=== PATIENT | female | born 1950 | race Asian ===

== ENCOUNTER 2020-01-21 18:26 | Emergency (ER) | payer MEDICARE, SELFPAY ==
[2020-01-21 18:40] VITALS: BP 194/103; PULSE 103; RESP 20; TEMP 37.6; O2SAT 98
[2020-01-21 18:57] VITALS: BP 150/82
--- NOTE | 2020-01-21 19:02 | ED.GENADULT ---
HPI - General Adult General Chief complaint: Unspecified Stated complaint: blood pressure Time Seen by Provider: 01/21/20 18:44 Source: patient and RN notes reviewed Mode of arrival: ambulatory Limitations: no limitations History of Present Illness HPI narrative: Patient presents today complaining of elevated blood pressure. She takes BID lisinopril and HS metoprolol. She has not checked her blood pressure for months, but did check it yesterday at the pharmacy and it was elevated. Through the day today, she continued to check it many times and was even more elevated. 2 hrs prior to arrival, patient took a dose of lisinopril. She has not yet taken her nighttime metoprolol. She denies headache, chest pain, nausea or vomiting, dizziness or vision changes, numbness or tingling in the extremities. She also took 0.5mg Xanax prior to arrival because she could feel herself becoming anxious due to the elevated readings. Machine BP upon arrival was 194/103 with HR of 103. 20 mins later, manual BP was 150/82. MD complaint: Elevated blood pressure Related Data Home Medications Medication Instructions Recorded Confirmed alprazolam 1 mg BID 01/21/20 01/21/20 anastrozole 1 mg DAILY 01/21/20 01/21/20 lisinopril 20 mg DAILY 01/21/20 01/21/20 metoprolol tartrate 50 mg HS 01/21/20 01/21/20 montelukast 10 mg DAILY 01/21/20 01/21/20 rosuvastatin 20 mg DAILY 01/21/20 01/21/20 vitamin E 1,000 unit DAILY 01/21/20 01/21/20 Allergies Allergy/AdvReac Type Severity Reaction Status Date / Time meperidine Allergy Mild Verified 10/01/15 10:27 niacin Allergy Mild Verified 10/01/15 10:27 Review of Systems Review of Systems: Narrative: CONSTITUTIONAL: Denies body aches, fever, chills, or sweats. EYES: Denies visual changes, redness, or discharge. ENT: Denies rhinorrhea, congestion, sore throat, or otalgia. CARDIOVASCULAR: Denies chest pain, palpitations, or edema. RESPIRATORY: Denies cough or dyspnea. GASTROINTESTINAL: Denies abdominal pain, nausea, vomiting, or diarrhea. GENITOURINARY: Denies dysuria or hematuria. SKIN: Denies rash, itching, or wounds. MUSCULOSKELETAL: Denies back pain, joint pain, or myalgia. NEUROLOGIC: Denies headache, numbness, tingling, or weakness. PSYCH: Denies depression or anxiety. [facility] Past Medical History Medical History (Updated 01/21/20 @ 19:10 by Aliza Saeed, [employer], BC) Anxiety Hyperlipidemia Hypertension Social History Social History Gender identity (if verbalized by the patient): Female Comments At time of signature, I have reviewed and agree with nursing past medical, surgical, social and family history unless otherwise noted. Please see nursing chart for further information. There is no relevant family history pertinent to the presenting complaint Exam Narrative: Exam Narrative: GENERAL: Well-appearing, well-nourished, and in no acute distress. HEAD: Normocephalic, atraumatic. EYES: EOMI. No redness or drainage. Conjunctivae normal. ENT: Mucous membranes pink and moist. NECK: Normal AROM. CHEST: No respiratory distress. Clear to auscultation. HEART: Regular rate and rhythm. No murmur appreciated. Normal peripheral pulses. EXTREMITIES: Normal range of motion. No edema. SKIN: Warm, dry, no rash. Capillary refill normal. Normal skin turgor. NEURO: No focal deficits. Alert and oriented x3. Gait steady. PSYCH: Normal affect. No signs of depression or anxiety. Course Vital Signs Vital signs: Vital Signs Temperature 99.7 F H 01/21/20 18:40 Pulse Rate 103 H 01/21/20 18:40 Respiratory Rate 01/21/20 18:40 Blood Pressure 194/103 H 01/21/20 18:40 Pulse Oximetry 98 01/21/20 18:40 Temperature 99.7 F H 01/21/20 18:40 Pulse Rate 103 H 01/21/20 18:40 Respiratory Rate 01/21/20 18:40 Blood Pressure 150/82 H 01/21/20 18:57 Pulse Oximetry 98 01/21/20 18:40 Reviewed. Pt has been instructed to follow up with her PCP regarding her elevated blood press
== END 2020-01-21 19:06 | disposition home or self-care (01) ==
PROVIDERS: Emergency Provider Nurse Practitioner; PCP Internal Medicine
DX: I10 Essential (primary) hypertension (principal); F41.9 Anxiety disorder, unspecified; E78.5 Hyperlipidemia, unspecified
CPT/HCPCS: 99211; G0463

== ENCOUNTER 2021-09-26 15:55 | Emergency (ER) | payer MEDICARE, SELFPAY ==
--- NOTE | ~2021-09-26 | XR_ITS ---
XR foot LT min 3V DATE: 09/26/2021 16:14 INDICATION: Dropped heavy ball on foot. Pain particularly at second and third toes TECHNIQUE: 4 views COMPARISON: None FINDINGS: Plantar and posterior calcaneal enthesopathy. There is mild osteoarthritis at the first metatarsophalangeal joint. Os tibiale externum, normal variant. No fracture or dislocation, periosteal reaction or bone destruction or erosive change. IMPRESSION: No fracture or dislocation Plantar and posterior calcaneal enthesopathy Reviewed, dictated and finalized at location B.
--- NOTE | 2021-09-26 15:57 | ED.LOWEXIN ---
HPI - Extremity Injury (Lower) General Chief Complaint: Extremity Injury, Lower Stated Complaint: Lt Foot Pain Time Seen by Provider: 09/26/21 15:58 Source: patient, RN notes reviewed and old records reviewed Mode of arrival: ambulatory Limitations: no limitations History of Present Illness HPI Narrative: 71-year-old female presents to the [facility] with complaints of left foot pain after dropping a a bowl on her foot approximately 10 or 11 this morning. Bruising and swelling noted. Positive pedal pulse. Capillary refill distal to injury under 2 seconds. No nailbed involvement Related Data Home Medications Medication Instructions Recorded Confirmed lisinopril 20 mg DAILY 01/21/20 09/26/21 metoprolol tartrate 50 mg HS 01/21/20 09/26/21 montelukast 10 mg DAILY 01/21/20 09/26/21 rosuvastatin 20 mg DAILY 01/21/20 09/26/21 ergocalciferol (vitamin D2) 1,250 mcg PO WEEKLY 09/26/21 09/26/21 sertraline 50 mg PO DAILY 09/26/21 09/26/21 Allergies Allergy/AdvReac Type Severity Reaction Status Date / Time meperidine Allergy Mild Hives Verified 09/26/21 15:58 niacin Allergy Mild Hives Verified 09/26/21 15:58 Review of Systems Review of Systems: All systems reviewed & are unremarkable except as noted in HPI and below Constitutional: Constitutional: Reports no additional constitutional complaints Eyes: Eyes: Reports no additional eye complaints ENT: Reports system reviewed and no additional complaints, except as documented Cardiovascular: Cardiovascular: Reports no additional cardiovascular complaints Respiratory: Respiratory: Reports no additional respiratory complaints Gastrointestinal: Gastrointestinal: Reports no additional gastrointestinal complaints Musculoskeletal: Musculoskeletal: Reports as per HPI Comments: Bruising noted to left distal foot toes 2 and 3 Integumentary/Breasts: Skin/Breast: Reports system reviewed and no additional complaints, except as docu Neurologic: Reports system reviewed and no additional complaints, except as documented Psychiatric: Psychiatric: Reports no additional psychiatric complaints Allergic/Immunologic: Allergic/Immunologic: Reports no additional allergic/immunologic complaints PMFSH Past Medical History Medical History Anxiety Hyperlipidemia Hypertension Social History Social History Gender identity (if verbalized by the patient): Female Comments At the time of my signature, I reviewed and agree with the nursing past medical, surgical, social, and family history. There is no relevant family history pertinent to the patient complaint. Exam Const: General: healthy appearing, no acute distress and alert Nutritional Appearance: well nourished Orientation/consciousness: patient oriented x3 Limitations: no limitations HENMT: Head: normal to inspection Eyes: Pupils: Equal, round and reactive pupils present Neck: Neck: normal visual inspection, no lymphadenopathy and no meningeal signs Chest: Chest palpation & inspection: normal inspection of the chest Resp: Effort & Inspection: normal respiratory effort Auscultation: clear to auscultation bilaterally Cardio: Rate: regular rate Rhythm: regular rhythm : General: Yes no CVA tenderness Back/Spine/Pelvis: Back: no CVA tenderness Skin: General skin exam: normal color Rashes: no rashes Neuro: General: patient oriented x3, moves all extremities, no meningeal signs and no focal motor deficits Cranial nerves: Yes Equal, round and reactive pupils present Speech: normal speech Gait exam (Neuro): Normal gait present Extrem: General: full ROM, capillary refill normal and normal exam except as noted Left lower extremity: foot Details: tenderness (Dorsal second and third toe) and ecchymosis (Dorsal second and third toe) Psych: Appearance: grossly normal and well kempt Mental Status: mental status grossly no
[2021-09-26 16:05] VITALS: BP 154/75; PULSE 84; RESP 18; TEMP 37; O2SAT 100
== END 2021-09-26 16:36 | disposition home or self-care (01) ==
PROVIDERS: Emergency Provider Nurse Practitioner; PCP Internal Medicine
DX: S90.32XA Contusion of left foot, initial encounter (principal); S90.122A Contusion of left lesser toe(s) without damage to nail, initial encounter; W20.8XXA Other cause of strike by thrown, projected or falling object, initial encounter; E78.5 Hyperlipidemia, unspecified; I10 Essential (primary) hypertension; F41.9 Anxiety disorder, unspecified
CPT/HCPCS: 73630; 99213; G0463

== ENCOUNTER 2021-12-03 07:12 | Outpatient (CLI) | payer MEDICARE, SELFPAY ==
--- NOTE | 2021-12-24 21:28 | WPDSLEEPSTUD ---
Sleep Study Date of Study: 12/03/21 Ordering Provider: PRIMITIVO Simpson Interpreting Physician: Nenita Browne MD Sleep Study Type: Split Polysomnogram Height: 1.52 m Weight: 66.224 kg Body Mass Index: 28.5 Neck Circumference (inches): 16 [place]: 4 Reason for Sleep Study Poor quality sleep, loud snoring Sleep History Ana Lopez is a 71 year old woman with complaints of poor quality sleep. She says that her tells her that she snores. She rarely awakens from sleep feeling short of breath or awaken at night with heartburn, belching or coughing. She occasionally snores. She occasionally has trouble sleeping with a cold. She rarely wakes up gasping for breath at night. She rarely has breathing problems at night observed by others. She feels warm at night but does not sweat at night. She occasionally notices her heart pounding or beating irregularly at night. She does not fall asleep during the day, does not fall asleep involuntarily or while driving. She does not have loss of muscle tone with strong emotion. She does not have daytime difficulties due to excessive sleepiness. She does not feel paralyzed on waking or falling asleep. She rarely has vivid dreamlike scenes upon awakening or falling asleep. She rarely feels afraid to go to sleep. She occasionally has nightmares. She rarely remembers her dreams. She occasionally has racing thoughts. She occasionally feels sad or depressed. She occasionally has anxiety. She does not notice parts of her body jerking and she does not kick at night. She does not have crawling or aching feelings in her legs although she does have leg cramping at night. She rarely has morning jaw pain. She does not grind her teeth during sleep. She rarely is bothered by pain during the day and rarely awakened by pain at night. She rarely wakes up feeling stiff in the morning with sore or achy muscles. She occasionally wakes up with pain in the neck and spine. She has occasional headaches and palpitations. She sometimes has memory problems. She she has episodes of insomnia and feeling panicked. Normal bedtime is 12 midnight, taking up to 30 minutes to fall asleep, waking twice at night to use the bathroom. She does not stay awake for very long. She estimates getting 6 hours of sleep at night. She denies taking naps. She feels better in the morning compared to other times of day she occasionally awakens feeling refreshed. Habits: Never smoked tobacco. Caffeine: ice tea. No alcohol or recreational drugs. [facility] Past Medical History Medical History Anxiety Breast cancer Hyperlipidemia Hypertension Family History Family History Sibling Colon cancer Other Breast cancer Diabetes mellitus Hypertension Social History Social History Social History: never smoker Smoking status: Never smoker Alcohol intake: never Substance use: never Gender identity (if verbalized by the patient): Female Medications Home Medications Medication Instructions Recorded Confirmed Type lisinopril 20 mg tablet 20 mg DAILY 01/21/20 11/22/21 History montelukast 10 mg tablet 10 mg DAILY 01/21/20 11/22/21 History ergocalciferol (vitamin D2) 1,250 1,250 mcg PO WEEKLY 09/26/21 11/22/21 History mcg (50,000 unit) capsule aspirin 81 mg tablet,delayed 81 mg PO DAILY 10/09/21 11/22/21 History release (Adult Low Dose Aspirin) calcium citrate 315 mg 1 tablet PO DAILY 10/09/21 11/22/21 History calcium-vitamin D3 6.25 mcg (250 unit) tablet (Citracal + Vitamin D Maximum) furosemide 20 mg tablet 10 mg PO DAILY 10/09/21 11/22/21 History loratadine 10 mg tablet 10 mg PO DAILY 10/09/21 11/22/21 History multivit with 1 tablet PO DAILY 10/09/21 11/22/21 History samfuzud-ckdl-TM-lutein 8 mg iron-400 mcg-300 mc
[2021-12-24 22:00] VITALS: BMI 28.5
== END 2021-12-04 07:06 | disposition home or self-care (01) ==
LOC: ANHCSM 07:12
PROVIDERS: PCP Physician Assistant; Visit Provider Physician Assistant
DX: G47.33 Obstructive sleep apnea (adult) (pediatric) (principal)
CPT/HCPCS: 95811

== ENCOUNTER 2022-03-08 22:08 | Emergency (ER) | payer MEDICARE, SELFPAY ==
--- NOTE | ~2022-03-08 | XR_ITS ---
EXAMINATION: XR chest 2V DATE: 03/09/2022 00:49 INDICATION: Palpitations TECHNIQUE: PA and lateral views of the chest were obtained. COMPARISON: Chest radiograph dated 04/13/2017 FINDINGS: The lungs remain clear with no focal airspace opacities, pulmonary edema, pleural effusion or pneumot horax. The cardiomediastinal silhouette is normal. Cholecystectomy clips the gallbladder fossa. Mild thoracic spondylosis. IMPRESSION: 1. No acute cardiopulmonary disease. Reviewed, dictated and finalized at location A.
--- NOTE | 2022-03-08 22:10 | ECG_ITS ---
Measurements Intervals [place] Rate: 75 P: 32 ME: 161 QRS: 0 QRSD: 80 T: 9 QT: 358 QTc: 401 Interpretive Statements SINUS RHYTHM MINIMAL VOLTAGE CRITERIA FOR LVH, CONSIDER NORMAL VARIANT [MEETS CRITERIA IN ONE OF: R(aVL), S(V1), R(V5), R(V5/V6)+S(V1)] MODERATE T-WAVE ABNORMALITY, CONSIDER ANTERIOR ISCHEMIA VERSUS FEMALE VARIANT NO PREVIOUS ECG AVAILABLE FOR COMPARISON Electronically Signed On 03-09-2022 8:53:11 CDT by Kamilah Ca M.D.
[2022-03-08 22:20] VITALS: BP 176/79; PULSE 77; RESP 14; TEMP 36.9; O2SAT 98
[2022-03-09] VITALS (7 sets, daily range): BP systolic 136–166; BP diastolic 76–112; PULSE 53–61; RESP 15–18; O2SAT 98–99
[2022-03-09 00:29] LABS: Basophils Percent Auto 0.5 % (0.2-1.2); Eosinophils Absolute Auto 0.1 K/mm3 (0-0.3); Eosinophils Percent Auto 1.2 % (0-4.4); Hematocrit 42.2 % (37.0-47.0); Hemoglobin 14.2 g/dL (12.0-15.0); Immature Granulocyte Absolute 0.01 K/mm3 (0.00-0.031); Immature Granulocyte Percent A 0.2 % (0-0.5); Lymphocytes Absolute Auto 2.23 K/mm3 (0.9-3.2); Lymphocytes Percent Auto 33.6 % (18.3-44.2); Mean Corpuscular HGB Conc 33.6 g/dl (32-36); Mean Corpuscular Hemoglobin 32.6 pg (26-34); Mean Platelet Volume 9.4 fl (7.4-10.4); Monocytes Absolute Auto 0.7 K/mm3 (0.1-0.6); Neutrophils Absolute Auto 3.6 K/mm3 (1.3-6.7); Neutrophils Percent Auto 53.5 % (45.5-73.1); Platelet Count Result 222 k/mm3 (150-375); Red Blood Count 4.35 M/mm3 (4.2-5.4); Red Cell Distribution Width 12.6 % (11.5-14.5); White Blood Count 6.6 K/mm3 (4.5-10.0)
[2022-03-09 00:39] LABS: Prothrombin Time 12.6 Seconds (11.1-14.7)
[2022-03-09 00:41] LABS: Partial Thromboplastin Time 33.3 SECONDS (22.3-36.8)
[2022-03-09 00:42] LABS: Alanine Aminotransferase 39 U/L (6-35); Albumin Level 4.5 g/dL (3.5-5.1); Alkaline Phosphatase 57 U/L (38-126); Anion Gap 11 mmol/L (8-16); Aspartate Amino Transferase 47 U/L (14-36); Bilirubin,Total 0.4 mg/dL (0.2-1.3); Blood Urea Nitrogen 17 mg/dL (7-17); Calcium 9.4 mg/dL (8.4-10.2); Carbon Dioxide 26 mmol/L (22-30); Chloride 103 mmol/L (98-107); Estimated Glomerular Filt Rate > 60; Glucose 127 mg/dL (65-110); Lipase 170 U/L (23-300); Potassium 3.7 mmol/L (3.4-5.0); Sodium 140 mmol/L (137-145)
[2022-03-09 00:54] LABS: Troponin I < 0.012 ng/mL (0.000-0.034)
--- NOTE | 2022-03-09 02:59 | PC.NURSE ---
Report received from TATE Pope. Assumed care of patient at this time.
--- NOTE | 2022-03-09 03:08 | ED.GENADULT ---
HPI - General Adult General Chief complaint: Arrhythmia/Palpitations Stated complaint: HTN/ palpatations Time Seen by Provider: 03/09/22 00:24 History of Present Illness HPI narrative: This is a 71-year-old female with history of anxiety presenting to ED after an episode of palpitations. The patient awoke this morning and checked her blood pressure is elevated at 159/90. She then became very nervous and continue to check her blood pressure. It was still elevated and she decided to come to the hospital because she was concerned That it was too high. The patient is asymptomatic. She denies chest pain, difficulty breathing, abdominal pain, nausea vomiting, dizziness, numbness tingling or weakness in any extremity. Patient has multiple visits to the emergency department for anxiety-related complaints. Related Data Home Medications Medication Instructions Recorded Confirmed lisinopril 20 mg tablet 20 mg DAILY 01/21/20 02/11/22 ergocalciferol (vitamin D2) 1,250 1,250 mcg PO WEEKLY 09/26/21 02/11/22 mcg (50,000 unit) capsule aspirin 81 mg tablet,delayed 81 mg PO DAILY 10/09/21 02/11/22 release (Adult Low Dose Aspirin) calcium citrate 315 mg 1 tablet PO DAILY 10/09/21 02/11/22 calcium-vitamin D3 6.25 mcg (250 unit) tablet (Citracal + Vitamin D Maximum) furosemide 20 mg tablet 10 mg PO DAILY 10/09/21 02/11/22 loratadine 10 mg tablet 10 mg PO DAILY 10/09/21 02/11/22 multivit with 1 tablet PO DAILY 10/09/21 02/11/22 oomsstff-zcwa-ZY-lutein 8 mg iron-400 mcg-300 mcg tablet (Centrum Silver Women) pantoprazole 40 mg tablet,delayed 40 mg PO DAILY 10/09/21 02/11/22 release rosuvastatin 10 mg tablet 10 mg PO DAILY 10/09/21 02/11/22 vitamin B complex 1 tablet PO DAILY 10/09/21 02/11/22 metoprolol tartrate 25 mg tablet 25 mg PO DAILY 10/22/21 02/11/22 guaifenesin 600 mg tablet, 600 mg PO Q12H PRN 01/29/22 02/11/22 extended release 12 hr (Mucinex) Allergies Allergy/AdvReac Type Severity Reaction Status Date / Time meperidine Allergy Mild Hives Verified 03/09/22 00:14 niacin Allergy Mild Hives Verified 03/09/22 00:14 sertraline AdvReac Intermediate facial Verified 03/09/22 00:14 twitching Review of Systems Review of Systems: CONSTITUTIONAL: Denies night sweats. EYES: No eye pain ENT: Denies rhinorrhea CARDIOVASCULAR: Denies palpitations RESPIRATORY: Denies hemoptysis GASTROINTESTINAL: Denies hematemesis GENITOURINARY: Denies hematuria. SKIN: Denies rash MUSCULOSKELETAL: Denies myalgia. NEUROLOGIC: Denies weakness. PSYCHIATRIC: Denies delusions [facility] Past Medical History Medical History Anxiety Breast cancer Hyperlipidemia Hypertension Family History Family History Sibling Colon cancer Other Breast cancer Diabetes mellitus Hypertension Social History Social History Social History: never smoker Smoking status: Never smoker Alcohol intake: never Substance use: never Gender identity (if verbalized by the patient): Female Exam Narrative: CONSTITUTIONAL: Denies night sweats. EYES: No eye pain ENT: Denies rhinorrhea CARDIOVASCULAR: Denies palpitations RESPIRATORY: Denies hemoptysis GASTROINTESTINAL: Denies hematemesis GENITOURINARY: Denies hematuria. SKIN: Denies rash MUSCULOSKELETAL: Denies myalgia. NEUROLOGIC: Denies weakness. PSYCHIATRIC: Denies delusions Course Vital Signs Vital signs: Vital Signs Temperature 98.4 F 03/08/22 22:20 Pulse Rate 77 03/08/22 22:20 Respiratory Rate 14 03/08/22 22:20 Blood Pressure 176/79 H 03/08/22 22:20 Pulse Oximetry 98 03/08/22 22:20 Temperature 98.4 F 03/08/22 22:20 Pulse Rate 61 03/09/22 02:59 Respiratory Rate 15 03/09/22 02:59 Blood Pressure 166/90 H 03/09/22 02:59 Pulse Oximetry 98 03/09/22 02:59
== END 2022-03-09 03:40 | disposition home or self-care (01) ==
PROVIDERS: Emergency Provider Emergency Medicine; PCP Physician Assistant
DX: R00.2 Palpitations (principal); R00.0 Tachycardia, unspecified; F41.9 Anxiety disorder, unspecified; E78.5 Hyperlipidemia, unspecified; I10 Essential (primary) hypertension; Z85.3 Personal history of malignant neoplasm of breast; Z79.82 Long term (current) use of aspirin; R94.31 Abnormal electrocardiogram [ECG] [EKG]
CPT/HCPCS: 36415; 71046; 80053; 83690; 84484; 85025; 85610; 85730; 93005; 99284

== ENCOUNTER 2022-07-13 14:48 | Emergency (ER) | payer MEDICARE, SELFPAY ==
[2022-07-13 15:00] VITALS: BP 136/68; PULSE 83; RESP 18; TEMP 36.8; O2SAT 98
--- NOTE | 2022-07-13 15:13 | ECG_ITS ---
Measurements Intervals [place] Rate: 74 P: 36 MO: 163 QRS: 10 QRSD: 90 T: 11 QT: 373 QTc: 414 Interpretive Statements SINUS RHYTHM WITHIN NORMAL LIMITS COMPARED TO ECG 03/08/2022 22:17:47 NO SIGNIFICANT CHANGES Electronically Signed On 07-14-2022 7:09:37 ED TRANSPORTER by Elías Calhoun M.D.
--- NOTE | 2022-07-13 15:14 | ED.URI ---
HPI - URI/Sore Throat General Chief Complaint: Upper Respiratory Infection Stated Complaint: Headache,Tremors,Chest Tightness Time Seen by Provider: 07/13/22 14:58 Source: patient Mode of arrival: ambulatory Limitations: no limitations History of Present Illness HPI Narrative: Patient presents today complaining of palpitations, dizziness and shakiness, weakness. States the palpitations started yesterday, she believed it may be due to her anxiety so she took an alprazolam, but they have persisted into today. The dizziness and shakiness also started last night and have persisted. She reports some shortness of breath that typically only occurs at night. Reports that she had a headache this morning, but took some Tylenol and that has resolved. Denies chest pain, nausea vomiting, numbness or tingling in the extremities. Patient has history of hypertension and states it has been elevated recently states her PCP has taken her on and off Lasix due to her hypertension. She is on losartan for her BP. Over the last 2 days she has developed some congestion and intermittently productive cough. She has been taking some Mucinex without much relief. Denies fever. Related Data Home Medications Medication Instructions Recorded Confirmed ergocalciferol (vitamin D2) 1,250 1,250 mcg PO WEEKLY 09/26/21 07/13/22 mcg (50,000 unit) capsule aspirin 81 mg tablet,delayed 81 mg PO DAILY 10/09/21 07/13/22 release (Adult Low Dose Aspirin) calcium citrate 315 mg 1 tablet PO DAILY 10/09/21 07/13/22 calcium-vitamin D3 6.25 mcg (250 unit) tablet (Citracal + Vitamin D Maximum) loratadine 10 mg tablet 10 mg PO DAILY 10/09/21 07/13/22 multivit with 1 tablet PO DAILY 10/09/21 07/13/22 vyjtoigi-bxrd-SR-lutein 8 mg iron-400 mcg-300 mcg tablet (Centrum Silver Women) pantoprazole 40 mg tablet,delayed 40 mg PO DAILY 10/09/21 07/13/22 release vitamin B complex 1 tablet PO DAILY 10/09/21 07/13/22 guaifenesin 600 mg tablet, 600 mg PO Q12H PRN Congestion 01/29/22 07/13/22 extended release 12 hr (Mucinex) fluticasone propionate 50 1 spray intranasal DAILY 05/13/22 07/13/22 mcg/actuation nasal spray,suspension Allergies Allergy/AdvReac Type Severity Reaction Status Date / Time meperidine Allergy Mild Hives Verified 07/13/22 14:54 niacin Allergy Mild Hives Verified 07/13/22 14:54 sertraline AdvReac Intermediate facial Verified 07/13/22 14:54 twitching Review of Systems Review of Systems: CONSTITUTIONAL: Denies body aches, fever, chills, or sweats. EYES: Denies visual changes, redness, or discharge. ENT: Denies rhinorrhea, sore throat, or otalgia.+ congestion CARDIOVASCULAR: Denies chest pain, or edema.+ palpitations RESPIRATORY: + cough, shortness of breath at night GASTROINTESTINAL: Denies abdominal pain, nausea, vomiting, or diarrhea. GENITOURINARY: Denies dysuria or hematuria. SKIN: Denies rash, itching, or wounds. MUSCULOSKELETAL: Denies back pain, joint pain, or myalgia. NEUROLOGIC: Denies numbness, tingling. + weakness, dizziness, headache PSYCH: Denies depression or anxiety. [facility] Past Medical History Medical History Anxiety Breast cancer Hyperlipidemia Hypertension Family History Family History Sibling Colon cancer Other Breast cancer Diabetes mellitus Hypertension Social History Social History Social History: never smoker Smoking status: Never smoker Alcohol intake: never Substance use: never Lack of Transportation: No Lack of Food: Never True Current Housing: I Have Housing Concerned About Future Housing: No Difficulty Paying Gas/Electric Bills: Decline to Answer Difficulty Paying for Meds: Decline to Answer Currently Unemployed: No Education: Bachelor's Degree Difficulty w/ Childcare or Fa
== END 2022-07-13 15:40 | disposition short-term general hospital (02) ==
PROVIDERS: Emergency Provider Nurse Practitioner; PCP Physician Assistant
DX: R00.2 Palpitations (principal); R42 Dizziness and giddiness; R53.1 Weakness; Z20.822 Contact with and (suspected) exposure to COVID-19; E78.5 Hyperlipidemia, unspecified; I10 Essential (primary) hypertension; F41.9 Anxiety disorder, unspecified; Z85.3 Personal history of malignant neoplasm of breast; Z79.82 Long term (current) use of aspirin
CPT/HCPCS: 87426; 93005; 99213; C9803; G0463

== ENCOUNTER 2022-07-13 15:56 | Emergency (ER) | payer MEDICARE, SELFPAY ==
--- NOTE | ~2022-07-13 | XR_ITS ---
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 RESULT: Lines, tubes, and devices: Cholecystectomy clips. Lungs and pleura: Senescent change. Peripheral left midlung scar.. Cardiomediastinal silhouette: Stable. Prominent central pulmonary arteries as can be seen with pulmo nary arterial hypertension. Other: No acute osseous or upper abdominal finding. IMPRESSION: No acute cardiopulmonary process. Reviewed, dictated and finalized at location K. WORKER FUR
[2022-07-13 15:58] VITALS: BP 152/72; PULSE 71; RESP 16; TEMP 36.6; O2SAT 100
--- NOTE | 2022-07-13 15:59 | ECG_ITS ---
Measurements Intervals [place] Rate: 67 P: 29 [place]: 164 QRS: 2 QRSD: 78 T: 0 QT: 367 QTc: 390 Interpretive Statements SINUS RHYTHM NONSPECIFIC T-WAVE ABNORMALITY BORDERLINE ECG COMPARED TO ECG 07/13/2022 15:12:45 NO SIGNIFICANT CHANGES Electronically Signed On 07-14-2022 14:00:51 HEALTH PSYCHOLOGIST by Aiden Hall M.D.
[2022-07-13 16:54] LABS: Basophils Percent Auto 0.5 % (0.2-1.2); Eosinophils Absolute Auto 0.1 K/mm3 (0-0.3); Eosinophils Percent Auto 0.9 % (0-4.4); Hematocrit 45.6 % (37.0-47.0); Hemoglobin 15.2 g/dL (12.0-15.0); Immature Granulocyte Absolute 0.02 K/mm3 (0.00-0.031); Immature Granulocyte Percent A 0.2 % (0-0.5); Lymphocytes Absolute Auto 2.17 K/mm3 (0.9-3.2); Lymphocytes Percent Auto 26.9 % (18.3-44.2); Mean Corpuscular HGB Conc 33.3 g/dl (32-36); Mean Corpuscular Hemoglobin 32.5 pg (26-34); Mean Corpuscular Volume 97.4 fl (80-100); Mean Platelet Volume 9.4 fl (7.4-10.4); Monocytes Absolute Auto 0.8 K/mm3 (0.1-0.6); Monocytes Percent Auto 9.4 % (2.6-8.5); Neutrophils Percent Auto 62.1 % (45.5-73.1); Platelet Count Result 255 k/mm3 (150-375); Red Blood Count 4.68 M/mm3 (4.2-5.4); Red Cell Distribution Width 12.6 % (11.5-14.5); White Blood Count 8.1 K/mm3 (4.5-10.0)
[2022-07-13 17:05] LABS: Partial Thromboplastin Time 29.8 SECONDS (22.3-36.8); Prothrombin Time 12.5 Seconds (11.1-14.7)
[2022-07-13 17:06] LABS: Alanine Aminotransferase 34 U/L (6-35); Albumin Level 4.8 g/dL (3.5-5.1); Alkaline Phosphatase 65 U/L (38-126); Anion Gap 6 mmol/L (8-16); Aspartate Amino Transferase 41 U/L (14-36); Bilirubin,Total 0.5 mg/dL (0.2-1.3); Blood Urea Nitrogen 16 mg/dL (7-17); Calcium 9.3 mg/dL (8.4-10.2); Carbon Dioxide 28 mmol/L (22-30); Chloride 101 mmol/L (98-107); Estimated Glomerular Filt Rate > 60; Glucose 126 mg/dL (65-110); Lipase 96 U/L (23-300); Potassium 3.8 mmol/L (3.4-5.0); Sodium 135 mmol/L (137-145)
[2022-07-13 17:18] LABS: Troponin I < 0.012 ng/mL (0.000-0.034)
[2022-07-13 18:10] VITALS: BP 152/74; PULSE 65; RESP 18; TEMP 36.8; O2SAT 99
[2022-07-13 19:39] VITALS: BP 147/86; PULSE 61; RESP 20; O2SAT 98
[2022-07-13 19:46] LABS: Troponin I < 0.012 ng/mL (0.000-0.034)
--- NOTE | 2022-07-13 20:52 | ED.GENADULT ---
HPI - General Adult General Chief complaint: Arrhythmia/Palpitations Stated complaint: palpatations Time Seen by Provider: 07/13/22 19:18 History of Present Illness HPI narrative: Patient 71-year-old female who presents the emergency department chief complaint of palpitations. Patient reports that she felt as though she was having palpitations and her heart like her heart was racing patient was seen in urgent care and directed to come to the emergency department for evaluation the patient states her symptoms have resolved now Related Data Home Medications Medication Instructions Recorded Confirmed ergocalciferol (vitamin D2) 1,250 1,250 mcg PO WEEKLY 09/26/21 07/13/22 mcg (50,000 unit) capsule aspirin 81 mg tablet,delayed 81 mg PO DAILY 10/09/21 07/13/22 release (Adult Low Dose Aspirin) calcium citrate 315 mg 1 tablet PO DAILY 10/09/21 07/13/22 calcium-vitamin D3 6.25 mcg (250 unit) tablet (Citracal + Vitamin D Maximum) loratadine 10 mg tablet 10 mg PO DAILY 10/09/21 07/13/22 multivit with 1 tablet PO DAILY 10/09/21 07/13/22 ehjrzcuc-pcyi-OQ-lutein 8 mg iron-400 mcg-300 mcg tablet (Centrum Silver Women) pantoprazole 40 mg tablet,delayed 40 mg PO DAILY 10/09/21 07/13/22 release vitamin B complex 1 tablet PO DAILY 10/09/21 07/13/22 guaifenesin 600 mg tablet, 600 mg PO Q12H PRN Congestion 01/29/22 07/13/22 extended release 12 hr (Mucinex) fluticasone propionate 50 1 spray intranasal DAILY 05/13/22 07/13/22 mcg/actuation nasal spray,suspension losartan 100 mg tablet 100 mg PO DAILY 07/13/22 07/13/22 metoprolol succinate 50 mg 50 mg PO DAILY 07/13/22 07/13/22 tablet,extended release 24 hr Allergies Allergy/AdvReac Type Severity Reaction Status Date / Time meperidine Allergy Mild Hives Verified 07/13/22 14:54 niacin Allergy Mild Hives Verified 07/13/22 14:54 sertraline AdvReac Intermediate facial Verified 07/13/22 14:54 twitching Review of Systems Review of Systems: A 10 system review of systems was completed on the patient and is negative except for what is stated in the HPI. Nursing and ancillary documentation was reviewed. [facility] Past Medical History Medical History Anxiety Breast cancer Hyperlipidemia Hypertension Family History Family History Sibling Colon cancer Other Breast cancer Diabetes mellitus Hypertension Social History Social History Social History: never smoker Smoking status: Never smoker Alcohol intake: never Substance use: never Lack of Transportation: No Lack of Food: Never True Current Housing: I Have Housing Concerned About Future Housing: No Difficulty Paying Gas/Electric Bills: Decline to Answer Difficulty Paying for Meds: Decline to Answer Currently Unemployed: No Education: Bachelor's Degree Difficulty w/ Childcare or Family Care: No Gender identity (if verbalized by the patient): Female Exam Narrative: GENERAL: Well-appearing, well-nourished, and in no acute distress. HEAD: Normocephalic, atraumatic. EYES: PERRLA and EOMI. ENT: Nares clear, no rhinorrhea or epistaxis. Mucous membranes moist. NECK: Supple. CHEST: Clear to auscultation. No respiratory distress. HEART: Regular rate and rhythm. No murmur heard. Normal peripheral pulses. ABDOMEN: Soft, nontender, nondistended, normal active bowel sounds. EXTREMITIES: Normal range of motion. No edema. SKIN: Warm, dry, no rash. NEURO: No focal deficits. Alert and oriented x3. PSYCH: Normal mood and affect. Course Vital Signs Vital signs: Vital Signs Temperature 36.6 C 07/13/22 15:58 Pulse Rate 71 07/13/22 15:58 Respiratory Rate 16 07/13/22 15:58 Blood Pressure 152/72 H 07/13/22 15:58 Pulse Oximetry 100 07/13/22 15:58 Oxygen Delivery Room Air
[2022-07-13 21:20] VITALS: BP 149/69; PULSE 57; RESP 15; O2SAT 97
== END 2022-07-13 21:29 | disposition home or self-care (01) ==
PROVIDERS: Emergency Medicine; Emergency Provider Emergency Medicine; PCP Physician Assistant
DX: R00.2 Palpitations (principal); E78.5 Hyperlipidemia, unspecified; I10 Essential (primary) hypertension; Z85.3 Personal history of malignant neoplasm of breast; Z79.82 Long term (current) use of aspirin; R94.31 Abnormal electrocardiogram [ECG] [EKG]
CPT/HCPCS: 36415; 71046; 80053; 83690; 84484; 85025; 85610; 85730; 87426; 93005; 99284; C9803

== ENCOUNTER 2022-10-07 09:33 | Outpatient (CLI) | payer MEDICARE, SELFPAY ==
[2022-10-07 09:58] LABS: Alanine Aminotransferase 28 U/L (6-35); Albumin Level 4.4 g/dL (3.5-5.1); Alkaline Phosphatase 58 U/L (38-126); Anion Gap 6 mmol/L (8-16); Aspartate Amino Transferase 41 U/L (14-36); Bilirubin,Total 0.7 mg/dL (0.2-1.3); Blood Urea Nitrogen 15 mg/dL (7-17); Calcium 8.8 mg/dL (8.4-10.2); Carbon Dioxide 30 mmol/L (22-30); Chloride 105 mmol/L (98-107); Cholesterol 144 mg/dL (0-200); Estimated Glomerular Filt Rate > 60; Glucose 118 mg/dL (65-110); HDL Direct 50 mg/dL; Potassium 4.1 mmol/L (3.4-5.0); Sodium 141 mmol/L (137-145); Triglycerides 120 mg/dL (<150)
[2022-10-07 10:09] LABS: LDL Cholesterol Direct 79 mg/dL
[2022-10-07 10:28] LABS: Thyroid Stimulating Hormone 0.961 uIU/mL (0.465-4.680)
[2022-10-07 11:04] LABS: Vitamin D 25 Hydroxy 49.8 ng/mL
[2022-10-07 11:07] LABS: Folic Acid > 20.0 ng/mL (2.76->20)
== END 2022-10-07 09:34 | disposition home or self-care (01) ==
PROVIDERS: PCP Physician Assistant; Visit Provider Physician Assistant
DX: R53.83 Other fatigue (principal); E55.9 Vitamin D deficiency, unspecified; E78.5 Hyperlipidemia, unspecified
CPT/HCPCS: 36415; 80053; 80061; 82306; 82607; 82746; 84443

== ENCOUNTER 2022-12-12 22:30 | Emergency (ER) | payer MEDICARE, SELFPAY ==
--- NOTE | ~2022-12-12 | XR_ITS ---
XR chest 2V DATE: 12/13/2022 00:05 INDICATION: Chest pain TECHNIQUE: PA and lateral views COMPARISON: July 13, 2022 PA and lateral chest FINDINGS: Cardiomegaly. Aortic calcification and mild unfolding. No hilar or mediastinal enlargement. No pulmonary infiltrate or consolidation, pleural effusion or pulmonary vascular congestion or pneumo thorax. Surgical clips, right upper quadrant, likely due to cholecystectomy. Osteopenia. IMPRESSION: Cardiomegaly, aortic atherosclerosis No active pulmonary disease Status post cholecystectomy Reviewed, dictated and finalized at location A.
[2022-12-12 22:30] VITALS: BP 191/77; PULSE 66; RESP 16; TEMP 36.6; O2SAT 98
--- NOTE | 2022-12-12 22:51 | ECG_ITS ---
Measurements Intervals [place] Rate: 56 P: 24 [place]: 169 QRS: -8 QRSD: 86 T: -6 QT: 404 QTc: 392 Interpretive Statements SINUS BRADYCARDIA DELAYED PRECORDIAL R/S TRANSITION LEFT VENTRICULAR HYPERTROPHY T WAVE ABNORMALITY IN ANTERIOR LEADS- CONSIDER ISCHEMIA BASELINE ARTIFACT- I, II, III, AVL, AVF BORDERLINE ECG COMPARED TO ECG 07/13/2022 16:07:09 SINUS BRADYCARDIA NOW PRESENT Electronically Signed On 12-13-2022 7:15:49 CDT by Hayder Medeiros D.O.
[2022-12-12 23:16] LABS: Basophils Percent Auto 0.6 % (0.2-1.2); Eosinophils Absolute Auto 0.1 K/mm3 (0-0.3); Eosinophils Percent Auto 1.8 % (0-4.4); Hematocrit 42.4 % (37.0-47.0); Immature Granulocyte Absolute 0.01 K/mm3 (0.00-0.031); Immature Granulocyte Percent A 0.2 % (0-0.5); Lymphocytes Absolute Auto 2.01 K/mm3 (0.9-3.2); Mean Corpuscular Hemoglobin 32.4 pg (26-34); Mean Corpuscular Volume 98.1 fl (80-100); Mean Platelet Volume 9.2 fl (7.4-10.4); Monocytes Absolute Auto 0.7 K/mm3 (0.1-0.6); Monocytes Percent Auto 10.7 % (2.6-8.5); Neutrophils Absolute Auto 3.4 K/mm3 (1.3-6.7); Neutrophils Percent Auto 54.7 % (45.5-73.1); Platelet Count Result 215 k/mm3 (150-375); Red Blood Count 4.32 M/mm3 (4.2-5.4); Red Cell Distribution Width 12.7 % (11.5-14.5); White Blood Count 6.3 K/mm3 (4.5-10.0)
[2022-12-12 23:27] LABS: Alanine Aminotransferase 30 U/L (6-35); Albumin Level 4.2 g/dL (3.5-5.1); Alkaline Phosphatase 52 U/L (38-126); Anion Gap 5 mmol/L (8-16); Aspartate Amino Transferase 42 U/L (14-36); Bilirubin,Total 0.4 mg/dL (0.2-1.3); Blood Urea Nitrogen 17 mg/dL (7-17); Calcium 9.4 mg/dL (8.4-10.2); Carbon Dioxide 25 mmol/L (22-30); Chloride 106 mmol/L (98-107); Estimated Glomerular Filt Rate > 60; Glucose 136 mg/dL (65-110); Lipase 148 U/L (23-300); Potassium 3.8 mmol/L (3.4-5.0); Sodium 136 mmol/L (137-145)
[2022-12-12 23:29] LABS: INR 0.9; Prothrombin Time 12.8 Seconds (11.1-14.7)
[2022-12-12 23:30] LABS: Partial Thromboplastin Time 31.5 SECONDS (22.3-36.8)
[2022-12-12 23:37] LABS: Troponin I < 0.012 ng/mL (0.000-0.034)
[2022-12-13 04:01] LABS: Troponin I < 0.012 ng/mL (0.000-0.034)
--- NOTE | 2022-12-13 04:09 | ED.GENADULT ---
HPI - General Adult General Chief complaint: Chest Pain Stated complaint: ELEVATED BP Time Seen by Provider: 12/13/22 03:59 History of Present Illness HPI narrative: Patient 72-year-old female who presents the emergency department with chief complaint of hypertension chest discomfort and lower extremity edema. Patient reports that she saw her primary care provider today and was having some fullness and tightness in her legs and noticed that her blood pressure was running elevated patient states that her primary started her on spironolactone and she was supposed to start taking this morning. Patient states that she noticed that her blood pressure was running elevated and reports that she took her blood pressure medicine blood pressure subsequently come down. The patient states she did have like a little bit of an uncomfortable feeling in her chest but reports that that is subsequently resolved Related Data Home Medications Medication Instructions Recorded Confirmed ergocalciferol (vitamin D2) 1,250 1,250 mcg PO WEEKLY 09/26/21 12/12/22 mcg (50,000 unit) capsule aspirin 81 mg tablet,delayed 81 mg PO DAILY 10/09/21 12/12/22 release (Adult Low Dose Aspirin) calcium citrate 315 mg 1 tablet PO DAILY 10/09/21 12/12/22 calcium-vitamin D3 6.25 mcg (250 unit) tablet (Citracal + Vitamin D Maximum) loratadine 10 mg tablet 10 mg PO DAILY 10/09/21 12/12/22 lfgbagvq-sqsf-rlly 8 mg-folic 400 1 tablet PO DAILY 10/09/21 12/12/22 mcg-K 50 mcg-lutein 300 mcg tablet (Centrum Silver Women) vitamin B complex 1 tablet PO DAILY 10/09/21 12/12/22 fluticasone propionate 50 1 spray intranasal DAILY 05/13/22 12/12/22 mcg/actuation nasal spray,suspension Allergies Allergy/AdvReac Type Severity Reaction Status Date / Time meperidine Allergy Mild Hives Verified 12/12/22 22:43 niacin Allergy Mild Hives Verified 12/12/22 22:43 sertraline AdvReac Intermediate facial Verified 12/12/22 22:43 twitching demeral Allergy Intermediate Hallucinati Uncoded 12/12/22 07:36 ng Review of Systems Review of Systems: A 10 system review of systems was completed on the patient and is negative except for what is stated in the HPI. Nursing and ancillary documentation was reviewed. PMFSH Past Medical History Medical History Anxiety Anxiety Breast cancer History of vaginal delivery Hyperlipidemia Hypertension Surgical History Surgical History History of hysterectomy History of laparoscopy History of lumpectomy of both breasts Family History Family History Sibling Colon cancer Other Breast cancer Diabetes mellitus Hypertension Social History Social History Social History: never smoker Smoking status: Never smoker Alcohol intake: never Substance use: never Lack of Transportation: No Lack of Food: Never True Current Housing: I Have Housing Concerned About Future Housing: No Difficulty Paying Gas/Electric Bills: Decline to Answer Difficulty Paying for Meds: Decline to Answer Currently Unemployed: No Education: Bachelor's Degree Difficulty w/ Childcare or Family Care: No Living arrangements: with family Occupation/Education: retired Gender identity (if verbalized by the patient): Female Sexual Orientation (if Verbalized by the Patient): Straight or Heterosexual Spiritual care concerns: No Agree to blood products: Yes Exam Narrative: GENERAL: Well-appearing, well-nourished, and in no acute distress. HEAD: Normocephalic, atraumatic. EYES: PERRLA and EOMI. ENT: Nares clear, no rhinorrhea or epistaxis. Mucous membranes moist. NECK: Supple. CHEST: Clear to auscultation. No respiratory distress. HEART: Regular rate and rhythm
[2022-12-13 04:30] VITALS: BP 128/64; PULSE 76; RESP 15; O2SAT 100
== END 2022-12-13 04:31 | disposition home or self-care (01) ==
PROVIDERS: Emergency Provider Emergency Medicine; PCP Physician Assistant
DX: R07.89 Other chest pain (principal); I10 Essential (primary) hypertension; E78.5 Hyperlipidemia, unspecified; Z85.3 Personal history of malignant neoplasm of breast; Z79.82 Long term (current) use of aspirin; Z90.710 Acquired absence of both cervix and uterus; R00.1 Bradycardia, unspecified; I51.7 Cardiomegaly; R94.31 Abnormal electrocardiogram [ECG] [EKG]
CPT/HCPCS: 36415; 71046; 80053; 83690; 84484; 85025; 85610; 85730; 93005; 99284

== ENCOUNTER 2023-01-11 22:36 | Emergency (ER) | payer MEDICARE, SELFPAY ==
--- NOTE | ~2023-01-11 | XR_ITS ---
Portable chest x-ray Comparison: 12/13/2022 Clinical History: Dyspnea Findings: Lungs are clear, without focal consolidation or pleural effusion. Cardiomediastinal silho uette is stable. Bones and soft tissues are unremarkable. Impression: Clear lungs. Reviewed, dictated and finalized at location . Impression: Clear lungs.
[2023-01-11 22:37] VITALS: BP 185/86; PULSE 73; RESP 14; TEMP 36.7; O2SAT 96
[2023-01-11 22:52] VITALS: O2SAT 97
--- NOTE | 2023-01-11 22:52 | PC.NURSE ---
Pt states she is currently on Prednisone and an antibiotic for sinus issues per PCP.
[2023-01-11 22:53] VITALS: BP 155/71; PULSE 61; RESP 16; O2SAT 98
--- NOTE | 2023-01-11 22:54 | ECG_ITS ---
Measurements Intervals [place] Rate: 63 P: 22 [place]: 150 QRS: 0 QRSD: 82 T: 0 QT: 377 QTc: 386 Interpretive Statements SINUS RHYTHM MODERATE VOLTAGE CRITERIA FOR LVH, CONSIDER NORMAL VARIANT [MEETS CRITERIA IN ONE OF: R(aVL), S(V1), R(V5), R(V5/V6)+S(V1)] MODERATE T-WAVE ABNORMALITY, CONSIDER ANTERIOR ISCHEMIA [-0.1+ mV T WAVE IN V3/V4] ABNORMAL ECG COMPARED TO ECG 12/12/2022 22:56:57 SINUS RHYTHM NOW PRESENT Electronically Signed On 01-12-2023 12:01:07 CDT by Garry Perdomo M.D.
--- NOTE | 2023-01-11 23:43 | ED.GENADULT ---
HPI - General Adult General Chief complaint: Shortness of Breath/Dyspnea Stated complaint: i'm having problems breathing Time Seen by Provider: 01/11/23 22:58 Source: patient Mode of arrival: ambulatory Limitations: no limitations History of Present Illness HPI narrative: This is a 72-year-old female with PMH of HTN, LPRD, chronic sinusitis, anxiety who presents to the ED with chief complaint of sinus congestion ongoing for the past 1-1/2 weeks. Triage note mentions that her chief complaint is dyspnea, however she relates this more to feeling of congestion in her sinuses/throat. Patient reports generalized pain in the sinuses. She states she was recently seen by her doctor who prescribed prednisone and doxycycline for 7-day course. Reports postnasal drainage, especially in the mornings. She feels like she has to clear her throat a lot. She states she does not feel any chest pain or dyspnea on exertion. However she states she has had troubles breathing due to feeling congested. Denies fevers, chills, leg swelling, abdominal pain, hemoptysis, recent travel, cancer history, recent hospitalization, nausea, vomiting, problems with bowel movements. Per chart review patient is being worked up for chronic sinusitis with Dr. Boswell (ENT). He has a CT of the sinuses without contrast ordered. Related Data Home Medications Medication Instructions Recorded Confirmed ergocalciferol (vitamin D2) 1,250 1,250 mcg PO WEEKLY 09/26/21 01/05/23 mcg (50,000 unit) capsule aspirin 81 mg tablet,delayed 81 mg PO DAILY 10/09/21 01/05/23 release (Adult Low Dose Aspirin) calcium citrate 315 mg 1 tablet PO DAILY 10/09/21 01/05/23 calcium-vitamin D3 6.25 mcg (250 unit) tablet (Citracal + Vitamin D Maximum) ffnsjyhc-smzn-zmeo 8 mg-folic 400 1 tablet PO DAILY 10/09/21 01/05/23 mcg-K 50 mcg-lutein 300 mcg tablet (Centrum Silver Women) fluticasone propionate 50 1 spray intranasal DAILY 05/13/22 01/05/23 mcg/actuation nasal spray,suspension buspirone 5 mg tablet 5 mg PO BID 01/05/23 01/05/23 cetirizine 10 mg capsule (Allergy 10 mg PO DAILY PRN 01/05/23 01/05/23 Relief (cetirizine)) guaifenesin 1,200 mg tablet, 1,200 mg PO BID 01/05/23 01/05/23 extended release 12 hr (Mucinex) olopatadine 0.6 % nasal spray 2 spray intranasal BID 01/05/23 01/05/23 Allergies Allergy/AdvReac Type Severity Reaction Status Date / Time meperidine Allergy Mild Hives Verified 01/05/23 10:50 niacin Allergy Mild Hives Verified 01/05/23 10:50 sertraline AdvReac Intermediate facial Verified 01/05/23 10:50 twitching demeral Allergy Intermediate Hallucinati Uncoded 01/05/23 10:50 ng Review of Systems Review of Systems: All systems as dictated in [facility] Past Medical History Medical History Anxiety Anxiety Breast cancer History of vaginal delivery Hyperlipidemia Hypertension Surgical History Surgical History History of hysterectomy History of laparoscopy History of lumpectomy of both breasts Family History Family History Sibling Colon cancer Other Breast cancer Diabetes mellitus Hypertension Social History Social History Social History: never smoker Smoking status: Never smoker Alcohol intake: never Substance use: never Lack of Transportation: No Lack of Food: Never True Current Housing: I Have Housing Concerned About Future Housing: No Difficulty Paying Gas/Electric Bills: Decline to Answer Difficulty Paying for Meds: Decline to Answer Currently Unemployed: No Education: Bachelor's Degree Difficulty w/ Childcare or Family Care: No Living arrangements: with family Occupation/Education: retired Gender identity (if verbalized by the patient): Female Sex
[2023-01-11] MEDS: ACETAMINOPHEN 500 MG TABLET 1000 MG PO (23:47)
[2023-01-11] MEDS: SODIUM CHLORIDE 0.9% IV 1,000 ML 999 ML IV CONT (23:47)
[2023-01-12 00:05] LABS: Basophils Percent Auto 0.4 % (0.2-1.2); Eosinophils Percent Auto 0.4 % (0-4.4); Hematocrit 41.6 % (37.0-47.0); Hemoglobin 14.1 g/dL (12.0-15.0); Immature Granulocyte Absolute 0.03 K/mm3 (0.00-0.031); Immature Granulocyte Percent A 0.4 % (0-0.5); Lymphocytes Percent Auto 28.2 % (18.3-44.2); Mean Corpuscular HGB Conc 33.9 g/dl (32-36); Mean Corpuscular Hemoglobin 32.7 pg (26-34); Mean Corpuscular Volume 96.5 fl (80-100); Mean Platelet Volume 9.5 fl (7.4-10.4); Monocytes Absolute Auto 0.8 K/mm3 (0.1-0.6); Neutrophils Absolute Auto 4.7 K/mm3 (1.3-6.7); Neutrophils Percent Auto 60.6 % (45.5-73.1); Platelet Count Result 212 k/mm3 (150-375); Red Blood Count 4.31 M/mm3 (4.2-5.4); Red Cell Distribution Width 12.2 % (11.5-14.5); White Blood Count 7.8 K/mm3 (4.5-10.0)
[2023-01-12 00:17] LABS: Alanine Aminotransferase 34 U/L (6-35); Albumin Level 4.2 g/dL (3.5-5.1); Alkaline Phosphatase 56 U/L (38-126); Anion Gap 6 mmol/L (8-16); Aspartate Amino Transferase 39 U/L (14-36); Bilirubin,Total 0.3 mg/dL (0.2-1.3); Blood Urea Nitrogen 14 mg/dL (7-17); Calcium 9.5 mg/dL (8.4-10.2); Carbon Dioxide 25 mmol/L (22-30); Chloride 105 mmol/L (98-107); Estimated Glomerular Filt Rate > 60; Glucose 156 mg/dL (65-110); Potassium 4.2 mmol/L (3.4-5.0); Sodium 136 mmol/L (137-145)
[2023-01-12 00:43] LABS: Influenza A QL RT-PCR Negative (Negative); Influenza B QL RT-PCR Negative (Negative); RSV RNA, RT-PCR Negative (Negative); SARS-CoV-2 RNA PCR Negative (Negative)
[2023-01-12 00:45] VITALS: BP 137/69; PULSE 59; RESP 17; O2SAT 98
[2023-01-12 01:07] VITALS: BP 137/56; PULSE 55; RESP 18; O2SAT 98
== END 2023-01-12 01:08 | disposition home or self-care (01) ==
PROVIDERS: Emergency Provider Physician Assistant; PCP Physician Assistant
DX: J32.9 Chronic sinusitis, unspecified (principal); Z20.822 Contact with and (suspected) exposure to COVID-19; I10 Essential (primary) hypertension; E78.5 Hyperlipidemia, unspecified; K21.9 Gastro-esophageal reflux disease without esophagitis; F41.9 Anxiety disorder, unspecified; Z85.3 Personal history of malignant neoplasm of breast; Z90.710 Acquired absence of both cervix and uterus; R94.31 Abnormal electrocardiogram [ECG] [EKG]
CPT/HCPCS: 36415; 71045; 80053; 85025; 87637; 93005; 96360; 99283; A9270; J7030

== ENCOUNTER → 2023-01-23 10:17 | Outpatient (CLI) | payer MEDICARE, SELFPAY ==
--- NOTE | ~2023-01-23 | CT_ITS ---
EXAMINATION: CT sinus wo con DATE: 01/23/2023 10:41 INDICATION: Chronic sinusitis TECHNIQUE: Computed tomography (CT) of the paranasal sinuses was performed without intravenous contra st. The dose-length product (DLP) was 419.24 mGy-cm. Iterative reconstruction was used. COMPARISON: None FINDINGS: There is normal development and pneumatization of the paranasal sinuses. There is mild muco karen thickening of the ethmoid air cells and inferiorly in the right maxillary sinus. The frontal, sph enoid, and left maxillary sinuses are clear. The bilateral ostiomeatal complexes are patent. Visualiz ed soft tissues are unremarkable. There is a left mastoid effusion. IMPRESSION: 1. Mild sinus disease right maxillary sinus and ethmoidal air cells. 2. Left mastoid effusion. Reviewed, dictated and finalized at location B.
== END ==
PROVIDERS: PCP Physician Assistant; Visit Provider Otolaryngology
DX: J32.9 Chronic sinusitis, unspecified (principal)
CPT/HCPCS: 70486

== ENCOUNTER 2023-05-07 08:40 | Outpatient (CLI) | payer MEDICARE, SELFPAY ==
--- NOTE | 2023-06-05 13:33 | WPDSLEEPSTUD ---
Sleep Study Date of Study: 05/07/23 Ordering Provider: PRIMITIVO Simpson Interpreting Physician: Nenita Browne MD Sleep Study Type: Polysomnogram Height: 1.5 m Weight: 64.41 kg Body Mass Index: 28.6 Neck Circumference (inches): 15 [place]: 1 Reason for Sleep Study Basic study with a titration of a mandibular advancement device, MAD * 12/03/2021- split night study with moderate obstructive sleep apnea, apnea-hypopnea index 15.7 and desaturation 83%.? The patient wore a medium AirFit F20 fullface mask with humidity at an optimal CPAP of 9 cm which eliminated obstructive events and snoring. Sleep History Ana Lopez is a 72 year-old female who had a prior sleep study December 03, 2021 showing moderate obstructive sleep apnea, optimal pressure CPAP 9 cm however she struggled using CPAP. She has been fitted with a mandibular advancement device. She returns at this time for a titration using the device. The following descriptions of her sleep are from her 2021 report. She did not complete another sleep questionnaire for this study. She has anxiety, sinus congestion, allergies, with physicians for each of these areas of concern. She has had poor quality sleep. She said that her told her that she snores. She rarely awakened from sleep feeling short of breath or awaken at night with heartburn, belching or coughing. She occasionally snored, occasionally had trouble sleeping with a cold. She rarely woke up from sleep gasping for breath at night. She rarely had breathing problems at night observed by others. She feels warm at night but does not sweat at night. She occasionally notices her heart pounding or beating irregularly at night. She does not fall asleep during the day, does not fall asleep involuntarily or while driving. She does not have loss of muscle tone with strong emotion. She does not have daytime difficulties due to excessive sleepiness. She does not feel paralyzed on waking or falling asleep. She rarely has vivid dreamlike scenes upon awakening or falling asleep. She rarely feels afraid to go to sleep. She occasionally has nightmares. She rarely remembers her dreams. She occasionally has racing thoughts. She occasionally feels sad or depressed. She occasionally has anxiety. She does not notice parts of her body jerking and she does not kick at night. She does not have crawling or aching feelings in her legs although she does have leg cramping at night. She rarely has morning jaw pain. She does not grind her teeth during sleep. She rarely is bothered by pain during the day and rarely awakened by pain at night. She rarely wakes up feeling stiff in the morning with sore or achy muscles. She occasionally wakes up with pain in the neck and spine. She has occasional headaches and palpitations. She sometimes has memory problems. She she has episodes of insomnia and feeling panicked. Normal bedtime is 12 midnight, taking up to 30 minutes to fall asleep, waking twice at night to use the bathroom. She does not stay awake for very long. She estimates getting 6 hours of sleep at night. She denies taking naps. She feels better in the morning compared to other times of day she occasionally awakens feeling refreshed. Habits: Never smoked tobacco. Caffeine: ice tea. No alcohol or recreational substances. [facility] Past Medical History Medical History (Updated 06/05/23 @ 16:59 by Nenita Browne MD) Anxiety Breast cancer History of vaginal delivery Hyperlipidemia Hypertension Obstructive sleep apnea Surgical History Surgical History History of hysterectomy History of laparoscopy History of lumpectomy of both breasts Family History Family History Sibling Colon cancer Other Breast cancer Diabetes mellitus Hypertension Social History Social History (Reviewed 06/05/23 @ 16:25 by Nenita
[2023-06-05 16:27] VITALS: BMI 28.6
== END 2023-05-08 08:06 | disposition home or self-care (01) ==
PROVIDERS: PCP Physician Assistant; Visit Provider Physician Assistant
DX: G47.33 Obstructive sleep apnea (adult) (pediatric) (principal)
CPT/HCPCS: 95810

== ENCOUNTER 2023-05-22 15:58 | Emergency (ER) | payer MEDICARE, SELFPAY ==
--- NOTE | ~2023-05-22 | XR_ITS ---
EXAMINATION: XR chest 1V portable DATE: 05/22/2023 19:58 INDICATION: Cough. COVID-19. TECHNIQUE: A single frontal view of the chest was obtained. COMPARISON: Chest single view 01/11/2023 FINDINGS: There is no pneumonia, pleural effusion, or pneumothorax. Cardiomegaly is noted. IMPRESSION: 1. Cardiomegaly. Reviewed, dictated and finalized at location E. 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 Cardiomegaly.
[2023-05-22 16:20] VITALS: BP 143/56; PULSE 79; RESP 16; TEMP 36.8; O2SAT 98
--- NOTE | 2023-05-22 18:15 | ECG_ITS ---
Measurements Intervals [place] Rate: 57 P: 47 [place]: 164 QRS: 12 QRSD: 84 T: 2 QT: 411 QTc: 403 Interpretive Statements SINUS BRADYCARDIA DELAYED PRECORDIAL R/S TRANSITION BORDERLINE T WAVE ABNORMALITY- ANT/INF LEADS BASELINE ARTIFACT- I, II, AVR, AVL, AVF, V1 BORDERLINE ECG COMPARED TO ECG 01/11/2023 22:59:09 SINUS BRADYCARDIA NOW PRESENT Electronically Signed On 05-22-2023 19:27:38 EXPLOSIVE ORDNANCE HANDLER by Hayder Medeiros D.O.
[2023-05-22 18:58] LABS: Basophils Percent Auto 0.2 % (0.2-1.2); Eosinophils Percent Auto 0.6 % (0-4.4); Hematocrit 44.7 % (37.0-47.0); Hemoglobin 14.5 g/dL (12.0-15.0); Immature Granulocyte Absolute 0.02 K/mm3 (0.00-0.031); Immature Granulocyte Percent A 0.4 % (0-0.5); Lymphocytes Absolute Auto 1.77 K/mm3 (0.9-3.2); Mean Corpuscular HGB Conc 32.4 g/dl (32-36); Mean Corpuscular Hemoglobin 32.2 pg (26-34); Mean Corpuscular Volume 99.1 fl (80-100); Mean Platelet Volume 9.6 fl (7.4-10.4); Monocytes Absolute Auto 0.5 K/mm3 (0.1-0.6); Monocytes Percent Auto 9.3 % (2.6-8.5); Neutrophils Percent Auto 56.5 % (45.5-73.1); Platelet Count Result 190 k/mm3 (150-375); Red Blood Count 4.51 M/mm3 (4.2-5.4); Red Cell Distribution Width 12.3 % (11.5-14.5); White Blood Count 5.4 K/mm3 (4.5-10.0)
[2023-05-22 19:12] LABS: Alanine Aminotransferase 30 U/L (6-35); Albumin Level 4.4 g/dL (3.5-5.1); Alkaline Phosphatase 74 U/L (38-126); Anion Gap 9 mmol/L (8-16); Aspartate Amino Transferase 43 U/L (14-36); Bilirubin,Total 0.4 mg/dL (0.2-1.3); Blood Urea Nitrogen 18 mg/dL (7-17); Carbon Dioxide 24 mmol/L (22-30); Chloride 107 mmol/L (98-107); Estimated Glomerular Filt Rate > 60; Glucose 123 mg/dL (65-110); Potassium 4.1 mmol/L (3.4-5.0); Sodium 140 mmol/L (137-145)
--- NOTE | 2023-05-22 19:13 | PC.NURSE ---
Report received from Emil assumed care of patient at this time.
--- NOTE | 2023-05-22 19:20 | ED.URI ---
HPI - URI/Sore Throat General Chief Complaint: Upper Respiratory Infection Stated Complaint: covid positive/blood in sputum Time Seen by Provider: 05/22/23 17:17 History of Present Illness HPI Narrative: Patient is a 72-year-old female presenting with bloody sputum. Patient states that she recently tested positive for COVID-19. Her PCP started her on Paxlovid which she has been taking as prescribed. States that she continues to have a cough and she has had some episodes of bloody sputum. She called her PCP who told her to come to the ER. No chest pain, shortness of breath, leg swelling, fevers, abdominal pain, nausea vomiting. Related Data Home Medications Medication Instructions Recorded Confirmed ergocalciferol (vitamin D2) 1,250 1,250 mcg PO WEEKLY 09/26/21 04/30/23 mcg (50,000 unit) capsule aspirin 81 mg tablet,delayed 81 mg PO DAILY 10/09/21 04/30/23 release (Adult Low Dose Aspirin) calcium citrate 315 mg 1 tablet PO DAILY 10/09/21 04/30/23 calcium-vitamin D3 6.25 mcg (250 unit) tablet (Citracal + Vitamin D Maximum) kujxsumf-hmgu-yllg 8 mg-folic 400 1 tablet PO DAILY 10/09/21 04/30/23 mcg-K 50 mcg-lutein 300 mcg tablet (Centrum Silver Women) fluticasone propionate 50 1 spray intranasal DAILY 05/13/22 04/30/23 mcg/actuation nasal spray,suspension cetirizine 10 mg capsule (Allergy 10 mg PO DAILY PRN 01/05/23 04/30/23 Relief (cetirizine)) olopatadine 0.6 % nasal spray 2 spray intranasal BID 01/05/23 04/30/23 Allergies Allergy/AdvReac Type Severity Reaction Status Date / Time meperidine Allergy Mild Hives Verified 05/22/23 17:15 niacin Allergy Mild Hives Verified 05/22/23 17:15 sertraline AdvReac Intermediate facial Verified 05/22/23 17:15 twitching demeral Allergy Intermediate Hallucinati Uncoded 04/30/23 08:05 ng Review of Systems Review of Systems: All systems reviewed & are unremarkable except as noted in HPI and below PMFSH Past Medical History Medical History Anxiety Anxiety Breast cancer History of vaginal delivery Hyperlipidemia Hypertension Surgical History Surgical History History of hysterectomy History of laparoscopy History of lumpectomy of both breasts Family History Family History Sibling Colon cancer Other Breast cancer Diabetes mellitus Hypertension Social History Social History Social History: never smoker Smoking status: Never smoker Alcohol intake: never Substance use: never Lack of Transportation: No Lack of Food: Never True Current Housing: I Have Housing Concerned About Future Housing: No Difficulty Paying Gas/Electric Bills: Decline to Answer Difficulty Paying for Meds: Decline to Answer Currently Unemployed: No Education: Bachelor's Degree Difficulty w/ Childcare or Family Care: No Living arrangements: with family Occupation/Education: retired Gender identity (if verbalized by the patient): Female Sexual Orientation (if Verbalized by the Patient): Straight or Heterosexual Spiritual care concerns: No Agree to blood products: Yes Exam Narrative: GENERAL: Well-appearing, in no acute distress, pleasant cooperative HEAD: Normocephalic, atraumatic. EYES: PERRLA and EOMI. ENT: Mucous membranes moist. NECK: Supple. CHEST: Clear to auscultation. No respiratory distress. HEART: Regular rate and rhythm ABDOMEN: Soft, nontender, nondistended EXTREMITIES: Normal range of motion. No edema. SKIN: Warm, dry, no rash. NEURO: Alert and oriented x3. PSYCH: Normal mood and affect. Course Vital Signs Vital signs: Vital Signs Temperature 98.3 F 05/22/23 16:20 Pulse Rate 79 05/22/23 16:20 Respiratory Rate 16 05/22/23 16:20 Blood Pressure 143/56
[2023-05-22 19:33] LABS: D Dimer 0.35 ug/mL (<0.48)
[2023-05-22 21:08] VITALS: BP 118/71; PULSE 57; RESP 19; O2SAT 97
== END 2023-05-22 21:09 | disposition home or self-care (01) ==
PROVIDERS: Emergency Provider Emergency Medicine; PCP Physician Assistant
DX: U07.1 COVID-19 (principal); R04.2 Hemoptysis; I10 Essential (primary) hypertension; E78.5 Hyperlipidemia, unspecified; Z85.3 Personal history of malignant neoplasm of breast; Z90.710 Acquired absence of both cervix and uterus; Z79.82 Long term (current) use of aspirin; I51.7 Cardiomegaly; R00.1 Bradycardia, unspecified; R94.31 Abnormal electrocardiogram [ECG] [EKG]
CPT/HCPCS: 36415; 71045; 80053; 85025; 85380; 93005; 99283

== ENCOUNTER 2023-05-28 12:54 | Outpatient (RCR) | payer MEDICARE, SELFPAY ==
[2023-05-28 13:01] VITALS: BMI 27.6
[2023-05-28 13:11] VITALS: BMI 27.6
== END 2023-08-17 10:45 | disposition home or self-care (01) ==
LOC: ANHDMC 12:54
PROVIDERS: PCP Physician Assistant; Visit Provider Family Medicine
DX: E11.65 Type 2 diabetes mellitus with hyperglycemia (principal); Z71.3 Dietary counseling and surveillance
CPT/HCPCS: 97802

== ENCOUNTER 2023-07-09 13:49 | Outpatient (CLI) | payer MEDICARE, SELFPAY ==
--- NOTE | 2023-07-09 14:05 | ECHO_ITS ---
Patient Info Name: Ana Lopez Age: 72 years : 1950 Gender: Female Ht: 59 in Wt: 134 lbs BSA: 1.61 m2 HR: 68 bpm BP: 164 / 88 mmHg Technical Quality: Good Exam Date: 07/09/2023 2:23 PM Exam Location: Echo Lab Patient Status: Outpatient Admit Date: 07/09/2023 Staff Ordering Physician: Brian Ibarra PA-C Spring Coverer: Attending Provider: Brian Ibarra PA-C Referring Physician: Stacey WILL; Exam Type: CA echo doppler color flow Study Info Indications R60.9 - Edema, unspecified Complete two-dimensional, color flow and Doppler transthoracic echocardiogram is performed. Summary 1. Complete two-dimensional, color flow and Doppler transthoracic echocardiogram is performed. 2. Left ventricular chamber dimension is normal. 3. Left ventricular systolic function is normal, estimated at 65-70%. 4. The left ventricular diastolic function is grade I diastolic dysfunction. 5. E/e' 11 is mildly elevated. 6. There is trace mitral valve regurgitation. 7. There is mild tricuspid valve regurgitation. 8. No pulmonary hypertension, estimated pulmonary arterial systolic pressure is 31 mmHg. Left Ventricle E/e' 11 is mildly elevated. Left ventricular chamber dimension is normal. Left ventricular systolic function is normal, estimated at 65-70%. The left ventricular diastolic function is grade I diastolic dysfunction. Right Ventricle Right ventricular systolic function is normal and with normal TAPSE 2.1 cm. Right ventricular chamber dimension is normal. Left Atria Left atrial chamber dimension is normal. Right Atria Right atrial chamber dimension is normal. Aortic Valve The aortic valve is trileaflet. There is no aortic valve stenosis. There is no aortic valve regurgitation. Pulmonic Valve There is no pulmonic regurgitation. Mitral Valve There is no mitral valve stenosis. There is trace mitral valve regurgitation. Tricuspid Valve There is mild tricuspid valve regurgitation. No pulmonary hypertension, estimated pulmonary arterial systolic pressure is 31 mmHg. Pericardium/Pleural There is no pericardial effusion. Inferior Vena Cava Normal inferior vena cava with >50% collapse upon inspiration consistent with normal right atrial pressure, 5 mmHg. Aorta The aortic root size at the sinus of Valsalva is normal. Left Ventricular Outflow Tract Name Value Normal LVOT 2D LVOT Diameter 2.0 cm LVOT Doppler LVOT Peak Gradient 4 mmHg LVOT Mean Gradient 2 mmHg LVOT VTI 23 cm LVOT VTI/AV VTI Ratio 0.6 LVOT Stroke Volume 69 ml LVOT CO 4.5 l/min LVOT CI 2.8 l/min/m2 Pulmonic Valve Name Value Normal PV Doppler PV Peak Gradient 4 mmHg Mitral Valve
== END 2023-07-09 13:50 | disposition home or self-care (01) ==
LOC: ANHCARD 13:50
PROVIDERS: PCP Physician Assistant; Visit Provider Physician Assistant
DX: G47.33 Obstructive sleep apnea (adult) (pediatric) (principal); R60.9 Edema, unspecified; I07.1 Rheumatic tricuspid insufficiency
CPT/HCPCS: 93306

== ENCOUNTER 2023-08-27 10:44 | Outpatient (CLI) | payer MEDICARE, SELFPAY ==
--- NOTE | ~2023-08-27 | XR_ITS ---
Supine and upright views of the abdomen Clinical history: Abdominal pain Findings: Bowel gas pattern is nonspecific. No evidence for obstruction or free air. No abnormal mass lesion or calcification is seen. Osseous structures are intact. Impression: No significant abnormality is seen. Reviewed, dictated and finalized at [facility]. Impression: No significant abnormality is seen.
== END 2023-08-27 10:45 | disposition home or self-care (01) ==
LOC: ANHIMG 10:46
PROVIDERS: PCP Physician Assistant; Visit Provider Internal Medicine
DX: R10.9 Unspecified abdominal pain (principal)
CPT/HCPCS: 74018

== ENCOUNTER 2023-09-07 15:50 | Outpatient (CLI) | payer MEDICARE, SELFPAY ==
--- NOTE | ~2023-09-07 | CT_ITS ---
EXAMINATION: CT abdomen pelvis wo con DATE: 09/07/2023 16:07 INDICATION: Unspecified abdominal pain. TECHNIQUE: Computed tomography (CT) of the abdomen and pelvis was performed without intravenous contr ast. Automated exposure control and iterative reconstruction technique were employed. The dose-length product was 247.03 mGy-cm. COMPARISON: None. FINDINGS: The visualized portions of the lung bases demonstrate mild atelectasis. No pleural effusion . Cardiomegaly is noted. No pericardial effusion. The liver is normal. There are changes of cholecyst ectomy. The spleen, pancreas, adrenal glands, and kidneys are normal. There is no urolithiasis. The a ppendix is normal. There are no dilated loops of bowel. There are no pathologically enlarged lymph no juventino. There is no free intraperitoneal fluid. There is a supraumbilical ventral hernia containing fat. There is mild thoracic and lumbar spondylosis. IMPRESSION: 1. Supraumbilical ventral hernia containing fat. Reviewed, dictated and finalized at location E.
== END 2023-09-07 15:51 | disposition home or self-care (01) ==
LOC: ANHIMG 15:52
PROVIDERS: PCP Physician Assistant; Visit Provider Internal Medicine
DX: K42.9 Umbilical hernia without obstruction or gangrene (principal)
CPT/HCPCS: 74176

== ENCOUNTER 2023-12-16 11:22 | Outpatient (CLI) | payer MEDICARE, SELFPAY ==
--- NOTE | 2023-12-16 11:32 | ECG_ITS ---
Test Date: 2023-12-16 11:50:01 Measurements Intervals [place] Rate: 52 P: 43 MS: 166 QRS: 10 QRSD: 90 T: 15 QT: 433 QTc: 404 Interpretive Statements SINUS BRADYCARDIA MODERATE T-WAVE ABNORMALITY, CONSIDER ANTERIOR ISCHEMIA ABNORMAL ECG No previous ECG available for comparison Electronically Signed On 12-16-2023 12:09:05 CDT by Hayder Medeiros D.O.
== END 2023-12-16 11:23 | disposition home or self-care (01) ==
PROVIDERS: PCP Physician Assistant; Visit Provider Internal Medicine
DX: R00.1 Bradycardia, unspecified (principal); I10 Essential (primary) hypertension; R94.31 Abnormal electrocardiogram [ECG] [EKG]
CPT/HCPCS: 93005

== ENCOUNTER 2023-12-29 11:15 | Outpatient (RCR) | payer MEDICARE, SELFPAY ==
--- NOTE | 2023-10-05 17:56 | PTOPEVAL1 ---
Assessment and note entered by Monica Wang, PT Evaluation Information Assessment Status Evaluation Diagnosis abdominal pain Onset approx 2-3 months ago Subjective Information Pt reports feeling discomfort to L side of abdomen , aggravated when she performed sit-ups, or certain chepe movements. also states she has lowback pain and LLE pain which is on and off. States her recent lab works also showed increased blood sugar levels, which prompted her to exercise more, however certain exercises trigger a flare up of pain to abdomen so she end up cancelling all types of exercises at this time and needed guidance on appropriate exercise protocol to improve overall health without discomfort. Reported Pain Level Pain Score 2: Self Report Assessment PT Clinical Summary Pt presents with pain and discomfort to upper L side of abdomen, muscle imbalance, weakness, ROM impairments secondary to supraumbilical hernia and spinal spondylosis, B knee pain and hamstrings tightness, impacting abilities to perform IADLs and recreational activities. Skilled PT necessary to improve function and quality of life. Plan of Care Interventions Electrical Stimulation,Manual Therapy,Neuro Re- education,Therapeutic Activities,Therapeutic Exercise PT Services Indicated Yes Treatment Frequency and 2x/wk x 10 visits Duration These treatments will address the objective and functional deficits as defined above. The patient will be advanced safely and appropriately in order for the patient to progress towards his/her prior level of function. Additional exercises will be introduced and as well as a comprehensive home exercise program upon discharge, if needed, ?to ensure carryover of functional gains achieved in the clinic. This treatment plan has been reviewed and agreement upon by the patient.
--- NOTE | 2023-11-02 10:09 | PCPTNOTE ---
pt cancelled, reports she is sick
--- NOTE | 2023-11-09 09:34 | PCPTNOTE ---
Pt NS appt due to wrong time for today. Pt was reminded of Thursday next appt and she has an appt at 930 but is going to see if she can cancel it.
--- NOTE | 2023-11-26 13:31 | OPREHPOC ---
Outpatient Therapy Plan of Care This is a Multidisciplinary Plan of Care that may contain components documented by all disciplines (PT, OT, and ST.) PT Problem 1 PT Problem #1 Knowledge Deficit PT Goal 1 Goal Pt will demo indep HEPs on BLE stretching, lumbar stabilization and core exercises. Target Visit 8 Progress Partially Met PT Problem 2 PT Problem #2 Impaired Range of Motion PT Goal 1 Goal Pt will demo 0 terminal knee extension, atleast - 10 deg hamstrings 90-90 Target Visit 12 Progress Partially Met Comment Improved PT Problem 3 PT Problem #3 Impaired Functional ADLs PT Goal 1 Goal Pt will demo improved stair climbing abilities without discomfort Target Visit 12 Progress Partially Met PT Goal 2 Goal Patient will reports 75% improvement with quality and quantity of sleep Target Visit 12 PT Goal 1 Goal Patient will improve aleta hip abduction strength to 4/5 to improve lateral pelvic and lumbar stability Target Visit 12
--- NOTE | 2023-11-26 13:31 | PTOPPROG ---
Assessment and note entered by Ismael Walker, PT Evaluation Information Assessment Status Progress Diagnosis abdominal pain Onset approx 2-3 months ago Subjective Information Reports that she felt she was doing a bit better but pulled something in her back a couple of days ago. She is unsure what she did to aggravate it. She has been doing her exercises at least a couple times a week but has been taking it easy this week. She has been taking Tylenol for pain. Overall she feels she is about the same from her first visits. Feels that she is a little back to square one after this week. Assessment PT Clinical Summary Patient currently returning to therapy after bout of Covid. She was seeing improvement, but had some regression over the past week and continues to struggle with low back pain greater on her left side. Plan of Care Interventions Electrical Stimulation,Manual Therapy,Neuro Re- education,Therapeutic Activities,Therapeutic Exercise PT Services Indicated Yes Treatment Frequency and 2x/week for 8 visits Duration These treatments will address the objective and functional deficits as defined above. The patient will be advanced safely and appropriately in order for the patient to progress towards his/her prior level of function. Additional exercises will be introduced and as well as a comprehensive home exercise program upon discharge, if needed, ?to ensure carryover of functional gains achieved in the clinic. This treatment plan has been reviewed and agreement upon by the patient.
== END 2024-01-03 23:59 | disposition home or self-care (01) ==
LOC: ANHPT 11:15
PROVIDERS: PCP Physician Assistant; Visit Provider Internal Medicine
DX: R10.30 Lower abdominal pain, unspecified (principal)
CPT/HCPCS: 93005; 97110; 97112; 97140; 97161; 97530

== ENCOUNTER 2024-01-07 14:09 | Outpatient (RCR) | payer MEDICARE, SELFPAY ==
--- NOTE | 2024-01-07 11:47 | PTOPDC ---
Assessment and note entered by [facility] Evaluation Information Assessment Status Evaluation Diagnosis abdominal pain Onset 2-3 months ago Subjective Information Pt. reports that she no longer has described stomach pain. She state that she will experience back pain, but much less frequent and much less intense. She reports she has been doing exercise at home without complication. She states that she is sleeping better, but does take medication for sleep. She states that she will continue with her HEP and is ready for discharge at this time. Reported Pain Level Pain Score 0: Self Report Assessment PT Clinical Summary Pt. has met all goals established at the initial evaluation. She is encouraged to continue with her HEP and will be discharged from our care at this time. Plan of Care PT Services Indicated No
== END 2024-01-07 14:10 | disposition home or self-care (01) ==
LOC: ANHPT 14:09
PROVIDERS: PCP Physician Assistant; Visit Provider Internal Medicine
DX: R10.30 Lower abdominal pain, unspecified (principal)
CPT/HCPCS: 97110; 97112; 97530

== ENCOUNTER 2024-01-29 00:50 | Emergency (ER) | payer MEDICARE, SELFPAY ==
[2024-01-29 00:54] VITALS: BP 210/77; PULSE 72; RESP 18; TEMP 36.9; O2SAT 98
[2024-01-29 05:30] VITALS: BP 138/71; PULSE 53; RESP 15; O2SAT 98
--- NOTE | 2024-01-29 06:16 | ED.GENADULT ---
HPI - General Adult General Chief complaint: Recheck/Abnormal Lab/Rx Stated complaint: high blood pressure Time Seen by Provider: 01/29/24 06:15 History of Present Illness HPI narrative: patient is a 73-year-old female who presents emergency department with chief complaint of high blood pressure. The patient reports she has history of hypertension reports she was started on hydralazine about 2 days ago reports this evening she checked her blood pressure and was elevated and the 200s the patient reports that she was having no chest pain no shortness of breath no changes in mental status no focal weakness patient states she had a little bit of a dull headache patient states that she is feeling little better right now Related Data Home Medications Medication Instructions Recorded Confirmed aspirin 81 mg tablet,delayed 81 mg PO DAILY 10/09/21 01/25/24 release (Adult Low Dose Aspirin) calcium citrate 315 mg 1 tablet PO DAILY 10/09/21 01/25/24 calcium-vitamin D3 6.25 mcg (250 unit) tablet (Citracal + Vitamin D Maximum) [id number] 8 mg-folic 400 1 tablet PO DAILY 10/09/21 01/25/24 mcg-K 50 mcg-lutein 300 mcg tablet (Centrum Silver Women) fluticasone propionate 50 1 spray intranasal DAILY 05/13/22 01/25/24 mcg/actuation nasal spray,suspension cetirizine 10 mg capsule (Allergy 10 mg PO DAILY PRN 01/05/23 01/25/24 Relief (cetirizine)) olopatadine 0.6 % nasal spray 2 spray intranasal BID 01/05/23 01/25/24 magnesium citrate 100 mg tablet 100 mg PO DAILY 01/25/24 01/25/24 mecobalamin (vitamin B12) 1,000 1,000 mcg PO DAILY 01/25/24 01/25/24 mcg chewable tablet Allergies Allergy/AdvReac Type Severity Reaction Status Date / Time meperidine Allergy Mild Hives Verified 01/25/24 07:23 niacin Allergy Mild Hives Verified 01/25/24 07:23 sertraline AdvReac Intermediate facial Verified 01/25/24 07:23 twitching demeral Allergy Intermediate Hallucinati Uncoded 01/25/24 07:23 ng Review of Systems Review of Systems: A 10 system review of systems was completed on the patient and is negative except for what is stated in the HPI. Nursing and ancillary documentation was reviewed. COUNTS INCLUDE 234 BEDS AT THE [facility] Past Medical History Medical History Anxiety Breast cancer History of vaginal delivery Hyperlipidemia Hypertension Obstructive sleep apnea Surgical History Surgical History History of hysterectomy History of laparoscopy History of lumpectomy of both breasts Family History Family History Sibling Colon cancer Other Breast cancer Diabetes mellitus Hypertension Social History Social History Social History: never smoker Smoking status: Never smoker Alcohol intake: never Substance use: never Lack of Transportation: No Lack of Food: Never True Current Housing: I Have Housing Concerned About Future Housing: No Difficulty Paying Gas/Electric Bills: Decline to Answer Difficulty Paying for Meds: Decline to Answer Currently Unemployed: No Education: Bachelor's Degree Difficulty w/ Childcare or Family Care: No Living arrangements: with family Occupation/Education: retired Gender identity (if verbalized by the patient): Female Sexual Orientation (if Verbalized by the Patient): Straight or Heterosexual Spiritual care concerns: No Agree to blood products: Yes Exam Narrative: GENERAL: Well-appearing, well-nourished, and in no acute distress. HEAD: Normocephalic, atraumatic. EYES: PERRLA and EOMI. ENT: Nares clear, no rhinorrhea or epistaxis. Mucous membranes moist. NECK: Supple. CHEST: Clear to auscultation. No respiratory distress. HEART: Regular rate and rhythm. No murmur heard. Normal peripheral pulses. ABDOM
[2024-01-29 06:28] VITALS: BP 140/73; PULSE 74; RESP 16; TEMP 36.6; O2SAT 98
== END 2024-01-29 06:31 | disposition home or self-care (01) ==
PROVIDERS: Emergency Provider Emergency Medicine; PCP Physician Assistant
DX: I10 Essential (primary) hypertension (principal); E78.5 Hyperlipidemia, unspecified; G47.33 Obstructive sleep apnea (adult) (pediatric); Z85.3 Personal history of malignant neoplasm of breast; Z90.710 Acquired absence of both cervix and uterus; Z79.82 Long term (current) use of aspirin; Z79.899 Other long term (current) drug therapy
CPT/HCPCS: 99281

== ENCOUNTER 2024-02-05 02:26 | Emergency (ER) | payer MEDICARE, SELFPAY ==
[2024-02-05 02:34] VITALS: BP 201/80; PULSE 67; RESP 18; TEMP 36.4; O2SAT 97
[2024-02-05 04:51] VITALS: BP 167/79
== END 2024-02-05 05:33 | disposition left against medical advice (07) ==
LOC: ANHED 04:57
PROVIDERS: PCP Physician Assistant
DX: I10 Essential (primary) hypertension (principal)
CPT/HCPCS: 99199

== ENCOUNTER 2024-02-11 10:40 | Outpatient (CLI) | payer MEDICARE, SELFPAY ==
--- NOTE | ~2024-02-11 | CT_ITS ---
EXAMINATION: CT sinus wo con DATE: 02/11/2024 11:02 INDICATION: Chronic sinusitis TECHNIQUE: Computed tomography (CT) of the paranasal sinuses was performed without intravenous contra st. The dose-length product was 311.14 mGy-cm. Automated exposure control and iterative reconstructio n technique were employed. COMPARISON: CT dated 01/23/2023 FINDINGS: There is mild mucosal thickening of the maxillary, ethmoid and sphenoid sinuses. Ostiomeata l units are patent. No significant nasal septal deviation. There is a left mastoid effusion. No signi ficant mucoperiosteal reaction. IMPRESSION: 1. Mild paranasal sinus disease. 2: Left mastoid effusion. Reviewed, dictated and finalized at location B.
== END 2024-02-11 10:41 | disposition home or self-care (01) ==
PROVIDERS: PCP Otolaryngology; Visit Provider Nurse Practitioner Family
DX: J32.8 Other chronic sinusitis (principal)
CPT/HCPCS: 70486

== ENCOUNTER 2024-03-01 00:31 | Emergency (ER) | payer MEDICARE, SELFPAY ==
[2024-03-01 00:36] VITALS: BP 162/89; PULSE 75; RESP 14; TEMP 36.5; O2SAT 97
[2024-03-01 01:21] VITALS: BP 178/83; PULSE 66; RESP 17; O2SAT 97
--- NOTE | 2024-03-01 02:22 | ECG_ITS ---
Test Date: 2024-03-01 02:57:49 Measurements Intervals [place] Rate: 68 P: 42 IN: 164 QRS: 0 QRSD: 90 T: 0 QT: 398 QTc: 425 Interpretive Statements SINUS RHYTHM MODERATE T-WAVE ABNORMALITY, CONSIDER ANTEROLATERAL ISCHEMIA [-0.1+ mV T-WAVE IN V3-V6] Compared to ECG 12/16/2023 11:50:01 NO SIGNIFICANT CHANGES Electronically Signed On 03-01-2024 12:23:51 CDT by Chilango Bernal M.D.
--- NOTE | 2024-03-01 02:23 | ED.RECABL ---
HPI - Recheck/Abnormal Lab/Rx General Chief Complaint: Recheck/Abnormal Lab/Rx Stated Complaint: high blood pressure Time Seen by Provider: 03/01/24 01:59 History of Present Illness HPI narrative: 73-year-old female with a past medical history significant for hypertension who presents to the emergency department today with a chief complaint of elevated blood pressure at home and complained of a headache. Patient states she felt shaky with tremors and hot flashes. She attributed this to the weather but when she took her blood pressure was in the 180s to 190s. She carries with her a blood pressure diary that documents her recent blood pressures every day for last few weeks. She hovers around the 150s to 160s and sometimes as low as wire 20 depending on the hour of the day. No measurements as high as 180. Denies any B symptoms at this time and states that she feels at her normal baseline. Blood pressure in the room is 150/85. Denies any active chest pain, shortness a breath, nausea vomiting, fever, chills, abdominal pain, back pain, fatigue, headache or neurological complaints. She has had multiple medications changed recently including stopping her metoprolol as she was getting an allergy shot was told to stop her beta blockers. This could be contributing to her elevated blood pressure reading today. Related Data Home Medications Medication Instructions Recorded Confirmed aspirin 81 mg tablet,delayed 81 mg PO DAILY 10/09/21 02/22/24 release (Adult Low Dose Aspirin) calcium 315 mg (as 1 tablet PO DAILY 10/09/21 02/22/24 citrate)-vitamin D3 6.25 mcg (250 unit) tablet (Citracal + Vitamin D Maximum) [id number] 8 mg-folic 400 1 tablet PO DAILY 10/09/21 02/22/24 mcg-K 50 mcg-lutein 300 mcg tablet (Centrum Silver Women) fluticasone propionate 50 1 spray intranasal DAILY 05/13/22 02/22/24 mcg/actuation nasal spray,suspension cetirizine 10 mg capsule (Allergy 10 mg PO DAILY PRN 01/05/23 02/22/24 Relief (cetirizine)) olopatadine 0.6 % nasal spray 2 spray intranasal BID 01/05/23 02/22/24 magnesium citrate 100 mg tablet 100 mg PO DAILY 01/25/24 02/22/24 mecobalamin (vitamin B12) 1,000 1,000 mcg PO DAILY 01/25/24 02/22/24 mcg chewable tablet Allergies Allergy/AdvReac Type Severity Reaction Status Date / Time meperidine Allergy Mild Hives Verified 03/01/24 01:22 niacin Allergy Mild Hives Verified 03/01/24 01:22 sertraline AdvReac Intermediate facial Verified 03/01/24 01:22 twitching demeral Allergy Intermediate Hallucinati Uncoded 03/01/24 01:22 ng Review of Systems Review of Systems: As reviewed above in the HPI [facility] Past Medical History Medical History Anxiety Breast cancer History of vaginal delivery Hyperlipidemia Hypertension Obstructive sleep apnea Surgical History Surgical History History of hysterectomy History of laparoscopy History of lumpectomy of both breasts Family History Family History Sibling Colon cancer Other Breast cancer Diabetes mellitus Hypertension Social History Social History Social History: never smoker Smoking status: Never smoker Alcohol intake: never Substance use: never Lack of Transportation: No Lack of Food: Never True Current Housing: I Have Housing Concerned About Future Housing: No Difficulty Paying Gas/Electric Bills: Decline to Answer Difficulty Paying for Meds: Decline to Answer Currently Unemployed: No Education: Bachelor's Degree Difficulty w/ Childcare or Family Care: No Living arrangements: with family Occupation/Education: retired Gender identity (if verbalized by the patient): Female Sexual Orientation (if Verbalized by the Patient): Stra
[2024-03-01 03:08] LABS: Basophils Percent Auto 0.6 % (0.2-1.2); Eosinophils Absolute Auto 0.2 K/mm3 (0-0.3); Eosinophils Percent Auto 2.2 % (0-4.4); Hematocrit 40.6 % (37.0-47.0); Hemoglobin 13.5 g/dL (12.0-15.0); Lymphocytes Absolute Auto 1.67 K/mm3 (0.9-3.2); Lymphocytes Percent Auto 24.3 % (18.3-44.2); Mean Corpuscular HGB Conc 33.3 g/dl (32-36); Mean Corpuscular Hemoglobin 32.6 pg (26-34); Mean Corpuscular Volume 98.1 fl (80-100); Mean Platelet Volume 9.3 fl (7.4-10.4); Monocytes Absolute Auto 0.7 K/mm3 (0.1-0.6); Monocytes Percent Auto 9.6 % (2.6-8.5); Neutrophils Absolute Auto 4.3 K/mm3 (1.3-6.7); Neutrophils Percent Auto 63.3 % (45.5-73.1); Platelet Count Result 223 k/mm3 (150-375); Red Blood Count 4.14 M/mm3 (4.2-5.4); Red Cell Distribution Width 12.8 % (11.5-14.5); White Blood Count 6.9 K/mm3 (4.5-10.0)
[2024-03-01 03:20] LABS: Alanine Aminotransferase 24 U/L (6-35); Albumin Level 4.2 g/dL (3.5-5.1); Alkaline Phosphatase 55 U/L (38-126); Anion Gap 8 mmol/L (4-12); Aspartate Amino Transferase 37 U/L (14-36); Bilirubin,Total 0.5 mg/dL (0.2-1.3); Blood Urea Nitrogen 20 mg/dL (7-17); Calcium 9.8 mg/dL (8.4-10.2); Carbon Dioxide 28 mmol/L (22-30); Chloride 103 mmol/L (98-107); Estimated Glomerular Filt Rate > 60; Glucose 119 mg/dL (65-110); Potassium 3.9 mmol/L (3.4-5.0); Sodium 139 mmol/L (137-145)
[2024-03-01 03:40] VITALS: BP 148/81
== END 2024-03-01 03:45 | disposition home or self-care (01) ==
PROVIDERS: Emergency Provider Student in an Organized Health Care Education/Training Program; PCP Internal Medicine
DX: I10 Essential (primary) hypertension (principal); F41.9 Anxiety disorder, unspecified; Z85.3 Personal history of malignant neoplasm of breast; E78.5 Hyperlipidemia, unspecified; G47.30 Sleep apnea, unspecified
CPT/HCPCS: 36415; 80053; 85025; 93005; 99283

== ENCOUNTER 2024-04-18 10:13 | Outpatient (CLI) | payer MEDICARE, SELFPAY ==
--- NOTE | 2024-04-18 | ECG_ITS ---
Test Date: 2024-04-18 11:04:12 Measurements Intervals [place] Rate: 60 P: 47 [place]: 156 QRS: 5 QRSD: 89 T: 3 QT: 417 QTc: 418 Interpretive Statements SINUS RHYTHM MODERATE T-WAVE ABNORMALITY, CONSIDER ANTEROLATERAL ISCHEMIA [-0.1+ mV T-WAVE IN V3-V6] Compared to ECG 03/01/2024 02:57:49 No significant changes Electronically Signed On 04-18-2024 14:28:50 BANK TELLER by Rodolfo Almeida M.D.
[2024-04-18 10:48] LABS: Basophils Percent Auto 0.5 % (0.2-1.2); Eosinophils Absolute Auto 0.1 K/mm3 (0-0.3); Eosinophils Percent Auto 1.2 % (0-4.4); Hematocrit 44.4 % (37.0-47.0); Hemoglobin 14.4 g/dL (12.0-15.0); Immature Granulocyte Absolute 0.01 K/mm3 (0.00-0.031); Immature Granulocyte Percent A 0.2 % (0-0.5); Lymphocytes Absolute Auto 1.47 K/mm3 (0.9-3.2); Lymphocytes Percent Auto 25.6 % (18.3-44.2); Mean Corpuscular HGB Conc 32.4 g/dl (32-36); Mean Corpuscular Hemoglobin 32.1 pg (26-34); Mean Corpuscular Volume 99.1 fl (80-100); Mean Platelet Volume 9.4 fl (7.4-10.4); Monocytes Absolute Auto 0.4 K/mm3 (0.1-0.6); Neutrophils Absolute Auto 3.8 K/mm3 (1.3-6.7); Neutrophils Percent Auto 65.5 % (45.5-73.1); Platelet Count Result 230 k/mm3 (150-375); Red Blood Count 4.48 M/mm3 (4.2-5.4); Red Cell Distribution Width 12.6 % (11.5-14.5); White Blood Count 5.7 K/mm3 (4.5-10.0)
[2024-04-18 10:59] LABS: Alanine Aminotransferase 22 U/L (6-35); Albumin Level 4.6 g/dL (3.5-5.1); Alkaline Phosphatase 55 U/L (38-126); Anion Gap 6 mmol/L (4-12); Aspartate Amino Transferase 38 U/L (14-36); Bilirubin,Total 0.7 mg/dL (0.2-1.3); Blood Urea Nitrogen 21 mg/dL (7-17); Calcium 9.4 mg/dL (8.4-10.2); Carbon Dioxide 29 mmol/L (22-30); Chloride 106 mmol/L (98-107); Cholesterol 133 mg/dL (0-200); Estimated Glomerular Filt Rate > 60; Glucose 128 mg/dL (65-110); HDL Direct 51 mg/dL; Hemoglobin A1C 6.1 % (<5.7); Magnesium 2.3 mg/dL (1.6-2.3); Potassium 4.4 mmol/L (3.4-5.0); Sodium 141 mmol/L (137-145); Triglycerides 66 mg/dL (<150)
[2024-04-18 11:13] LABS: LDL Cholesterol Direct 51 mg/dL
[2024-04-18 11:22] LABS: Vitamin D 25 Hydroxy 64.8 ng/mL
[2024-04-18 11:30] LABS: Thyroid Stimulating Hormone 0.632 uIU/mL (0.465-4.680)
[2024-04-18 11:55] LABS: Vitamin B12 > 1000.0 pg/mL (239-931)
== END 2024-04-18 10:14 | disposition home or self-care (01) ==
PROVIDERS: PCP Internal Medicine; Referring Provider Internal Medicine; Visit Provider Nurse Anesthetist, Certified Registered
DX: Z01.818 Encounter for other preprocedural examination (principal); I10 Essential (primary) hypertension; R94.31 Abnormal electrocardiogram [ECG] [EKG]; E55.9 Vitamin D deficiency, unspecified; R53.83 Other fatigue; E53.8 Deficiency of other specified B group vitamins; E78.5 Hyperlipidemia, unspecified; R73.9 Hyperglycemia, unspecified
CPT/HCPCS: 36415; 80053; 80061; 82306; 82607; 83036; 83735; 84443; 85025; 93005

== ENCOUNTER 2024-04-22 12:24 | Emergency (ER) | payer MEDICARE, SELFPAY ==
[2024-04-22] VITALS (33 sets, daily range): BP systolic 126–167; BP diastolic 66–92; PULSE 82–106; RESP 12–20; TEMP 36.4; O2SAT 95–100
--- NOTE | ~2024-04-22 | XR_ITS ---
EXAMINATION: XR chest 2V DATE: 04/22/2024 15:21 INDICATION: Palpitations. TECHNIQUE: Frontal and lateral views of the chest were obtained. COMPARISON: Chest single view 05/22/2023, CT abdomen and pelvis 09/07/2023 FINDINGS: There is no pneumonia, pleural effusion, or pneumothorax. The heart size is normal. Surgica l clips in the right upper quadrant are likely from cholecystectomy. IMPRESSION: 1. No acute cardiopulmonary disease. Reviewed, dictated and finalized at location [facility]. [facility]
--- NOTE | 2024-04-22 12:26 | ECG_ITS ---
Test Date: 2024-04-22 12:34:56 Measurements Intervals [place] Rate: 94 P: 42 [place]: 152 QRS: -10 QRSD: 87 T: -11 QT: 350 QTc: 438 Interpretive Statements SINUS RHYTHM NONSPECIFIC ST & T-WAVE ABNORMALITY Compared to ECG 04/18/2024 11:04:12 Possible ischemia no longer present Electronically Signed On 04-22-2024 13:03:19 KENNEL HAND by Chilango Bernal M.D.
[2024-04-22 14:25] LABS: Basophils Percent Auto 0.5 % (0.2-1.2); Eosinophils Percent Auto 0.7 % (0-4.4); Hematocrit 43.7 % (37.0-47.0); Hemoglobin 14.6 g/dL (12.0-15.0); Immature Granulocyte Absolute 0.01 K/mm3 (0.00-0.031); Immature Granulocyte Percent A 0.2 % (0-0.5); Lymphocytes Absolute Auto 1.57 K/mm3 (0.9-3.2); Lymphocytes Percent Auto 28.2 % (18.3-44.2); Mean Corpuscular HGB Conc 33.4 g/dl (32-36); Mean Corpuscular Hemoglobin 32.5 pg (26-34); Mean Corpuscular Volume 97.3 fl (80-100); Mean Platelet Volume 9.2 fl (7.4-10.4); Monocytes Absolute Auto 0.5 K/mm3 (0.1-0.6); Monocytes Percent Auto 9.3 % (2.6-8.5); Neutrophils Absolute Auto 3.4 K/mm3 (1.3-6.7); Neutrophils Percent Auto 61.1 % (45.5-73.1); Platelet Count Result 197 k/mm3 (150-375); Red Blood Count 4.49 M/mm3 (4.2-5.4); Red Cell Distribution Width 12.6 % (11.5-14.5); White Blood Count 5.6 K/mm3 (4.5-10.0)
[2024-04-22 14:35] LABS: Alanine Aminotransferase 23 U/L (6-35); Albumin Level 4.5 g/dL (3.5-5.1); Alkaline Phosphatase 59 U/L (38-126); Anion Gap 4 mmol/L (4-12); Aspartate Amino Transferase 46 U/L (14-36); Bilirubin,Total 0.5 mg/dL (0.2-1.3); Blood Urea Nitrogen 18 mg/dL (7-17); Carbon Dioxide 30 mmol/L (22-30); Chloride 106 mmol/L (98-107); Estimated Glomerular Filt Rate > 60; Glucose 113 mg/dL (65-110); Lipase 112 U/L (23-300); Sodium 140 mmol/L (137-145)
[2024-04-22 14:43] LABS: INR 0.9; Prothrombin Time 12.9 Seconds (11.1-14.7)
[2024-04-22 14:44] LABS: Partial Thromboplastin Time 29.8 Seconds (22.3-36.8)
[2024-04-22 14:51] LABS: Troponin I < 0.012 ng/mL (0.000-0.034)
--- NOTE | 2024-04-22 14:57 | ED.ARRPALP ---
HPI - Arrhythmia/Palpitations General Chief Complaint: Arrhythmia/Palpitations Stated Complaint: I'm palpitating Time Seen by Provider: 04/22/24 14:26 History of Present Illness HPI narrative: 73-year-old female with a history of hypertension, hyperlipidemia presenting with palpitations. Patient states that she has intermittent palpitations which is normal for her but usually they go away more quickly. States that she is concerned as she had an EKG earlier this week for a preprocedural evaluation and she was told it was abnormal. States that her PCP recently decreased her metoprolol due to a low heart rate. She denies chest pain or shortness of breath. No syncope or leg swelling. States she is concerned she is dehydrated as her mouth and lips have been feeling dry. No nausea or vomiting. No diarrhea. No dysuria or hematuria. Related Data Home Medications ?Medication ?Instructions ?Recorded ?Confirmed ?Last Taken ?Type aspirin 81 mg tablet,delayed 81 mg PO DAILY 10/09/21 04/04/24 Unknown History release (Adult Low Dose Aspirin) calcium 315 mg (as 1 tablet PO DAILY 10/09/21 04/04/24 Unknown History citrate)-vitamin D3 6.25 mcg (250 unit) tablet (Citracal + Vitamin D Maximum) [id number] 8 mg-folic 400 1 tablet PO DAILY 10/09/21 04/04/24 Unknown History mcg-K 50 mcg-lutein 300 mcg tablet (Centrum Silver Women) fluticasone propionate 50 1 spray intranasal DAILY 05/13/22 04/04/24 Unknown History mcg/actuation nasal spray,suspension cetirizine 10 mg capsule (Allergy 10 mg PO DAILY PRN 01/05/23 04/04/24 Unknown History Relief (cetirizine)) olopatadine 0.6 % nasal spray 2 spray intranasal BID 01/05/23 04/04/24 Unknown History magnesium citrate 100 mg tablet 100 mg PO DAILY 01/25/24 04/04/24 Unknown History mecobalamin (vitamin B12) 1,000 1,000 mcg PO DAILY 01/25/24 04/04/24 Unknown History mcg chewable tablet Allergies Allergy/AdvReac Type Severity Reaction Status Date / Time meperidine Allergy Mild Hives Verified 04/22/24 12:30 niacin Allergy Mild Hives Verified 04/22/24 12:30 sertraline AdvReac Intermediate facial Verified 04/22/24 12:30 twitching demeral Allergy Intermediate Hallucinati Uncoded 04/22/24 12:30 ng Review of Systems Review of Systems: All systems reviewed & are unremarkable except as noted in HPI and below PMFSH Past Medical History Medical History Anxiety Breast cancer History of vaginal delivery Hyperlipidemia Hypertension Obstructive sleep apnea Surgical History Surgical History History of hysterectomy History of laparoscopy History of lumpectomy of both breasts Family History Family History Sibling Colon cancer Other Breast cancer Diabetes mellitus Hypertension Social History Social History Social History: never smoker Smoking status: Never smoker Alcohol intake: never Substance use: never Lack of Transportation: No Lack of Food: Never True Current Housing: I Have Housing Concerned About Future Housing: No Difficulty Paying Gas/Electric Bills: Decline to Answer Difficulty Paying for Meds: Decline to Answer Currently Unemployed: No Education: Bachelor's Degree Difficulty w/ Childcare or Family Care: No Living arrangements: with family Occupation/Education: retired Gender identity (if verbalized by the patient): Female Sexual Orientation (if Verbalized by the Patient): Straight or Heterosexual Spiritual care concerns: No Agree to blood products: Yes Exam Narrative: GENERAL: Well-appearing, In no acute distress, pleasant cooperative HEAD: Normocephalic, atraumatic. EYES: PERRLA and EOMI. ENT: Mucous membranes a bit dry NECK: Supple. CHEST: Clear to auscultation. No respiratory distress. HEART: Regular rate and rhythm. ABDOMEN: Soft, nontender, nondistended EXTREMITIES: Normal range of motion. No edema. SKIN: Warm, dry, no rash. NEURO: Alert and oriented x3. PSYCH: Normal mood and affect. Course Vital Signs Vital signs: Vital Signs Temperature 97.6 F 04/22/24 12:27 Pulse Rate 106 H 04/22/24 12:27 Respiratory Rate 16 04/22/24 12:27 Blood Pressure 149/71 H 04/22/24 12:27 Pulse Oximetry 98 04/22/24 12:27 Oxygen Delivery Room Air 04/22/24 12:27 Temperature 97.6 F 04/22/24 12:27 Pulse Rate 86 04/22/24 19:16 Respiratory Rate 15 04/22/24 19:16 Blood Pressure 157/71 H 04/22/24 19:15 Pulse Oximetry 97 04/22/24 19:16 Oxygen Delivery Room Air 04/22/24 12:27 MDM - Arrhythmia/Palpitations MDM Narrative Medical decision making narrative: 73-year-old female presenting with palpitations. Patient initially mildly tachycardic, this had improved with the time I evaluated her. Exam otherwise remarkable for the above. EKG per my interpretation shows normal sinus rhythm, Nonspecific T-wave changes, no ST elevations or depressions. Blood work with elevated BUN to creatinine ratio, concerning for mild dehydration. Troponin undetectable. Lipase is normal. Patient received a L of fluids and continues to feel well on my re-evaluation. Feel she is safe for outpatient management. Recommend close PCP follow-up. Appropriate return precautions given. Discharged in stable condition. Differential Diagnosis Differential diagnosis: Likely palpitations, anxiety, artial fibrillation, artial flutter and other (Dehydration, electrolyte derangement) Medical Records Attestation: I reviewed the patient's medical records. Lab Data Attestation: I reviewed the patient's lab results. 04/22/24 14:19 04/22/24 14:19 Labs: Lab Results 04/22/24 04/22/24 Range/Units 14:19 17:30 WBC 5.6 (4.5-10.0) K/mm3 RBC 4.49 (4.2-5.4) M/mm3 Hgb 14.6 (12.0-15.0) g/dL Hct 43.7 (37.0-47.0) % MCV 97.3 (80-100) fl MCH 32.5 (26-34) pg MCHC 33.4 (32-36) g/dl RDW 12.6 (11.5-14.5) % Plt Count 197 (150-375) k/mm3 MPV 9.2 (7.4-10.4) fl Immature Gran % (Auto) 0.2 (0-0.5) % Neut % (Auto) 61.1 (45.5-73.1) % Lymph % (Auto) 28.2 (18.3-44.2) % [place] % (Auto) 9.3 H (2.6-8.5) % Eos % (Auto) 0.7 (0-4.4) % Baso % (Auto) 0.5 (0.2-1.2) % Lymph # (Auto) 1.57 (0.9-3.2) K/mm3 [place] # (Auto) 0.5 (0.1-0.6) K/mm3 Eos # (Auto) 0.0 (0-0.3) K/mm3 Baso # (Auto) 0.0 (0.0-0.1) K/mm3 Abs Immat Gran (auto) 0.01 (0.00-0.031) K/mm3 Absolute Neuts (auto) 3.4 (1.3-6.7) K/mm3 Absolute Nucleated RBC 0.000 (0.0-0.012) K/mm3 Nucleated RBC % 0.0 (0.0-0.2) % PT 12.9 (11.1-14.7) Seconds INR 0.9 APTT 29.8 (22.3-36.8) Seconds Sodium 140 (137-145) mmol/L Potassium 4.0 (3.4-5.0) mmol/L Chloride 106 (98-107) mmol/L Carbon Dioxide 30 (22-30) mmol/L Anion Gap 4 (4-12) mmol/L BUN 18 H (7-17) mg/dL Creatinine 0.50 L (0.7-1.0) mg/dL Estim Creat Clear Calc Not Reportable Estimated GFR > 60 (59 - ) Glucose 113 H (65-110) mg/dL Calcium 9.0 (8.4-10.2) mg/dL Total Bilirubin 0.5 (0.2-1.3) mg/dL AST 46 H (14-36) U/L ALT 23 (6-35) U/L Alkaline Phosphatase 59 (38-126) U/L Troponin I < 0.012 < 0.012 (0.000-0.034) ng/mL Total Protein 8.0 (6.3-8.2) g/dL Albumin 4.5 (3.5-5.1) g/dL Lipase 112 (23-300) U/L Imaging Data Radiologist's impression: ITS Impressions Chest X-Ray 04/22/24 15:22 IMPRESSION: 1. No acute cardiopulmonary disease. Critical Care Time Critical Care Time Critical Care Time: No Discharge Plan Discharge Clinical Impression: Palpitations, Dehydration Patient Disposition: Home, Self-Care Condition: Stable Instructions: Antibiotic Form, Heart Palpitations (DC), Dehydration (DC) Additional Instructions: your blood work, chest x-ray, EKG today show no acute abnormalities. We feel you are safe for outpatient management. Please follow-up closely with your PCP. You may also follow-up with Cardiology at the number below. If your symptoms worsen or other concerning symptoms arise, please return to the ER. Patient Language: Ukrainian Prescriptions: No Action aspirin [Adult Low Dose Aspirin] 81 mg tablet,delayed release (DR/EC) 81 mg PO DAILY calcium citrate-vitamin D3 [Citracal + D Maximum] 315 mg-6.25 mcg (250 unit) tablet 1 tablet PO DAILY Centrum Silver Women 8 mg iron-400 mcg-300 mcg tablet 1 tablet PO DAILY fluticasone propionate 50 mcg/actuation spray,suspension 1 spray intranasal DAILY Rx Instructions: administer into each nostril valsartan 320 mg tablet 320 mg PO DAILY Qty: 30 3RF Allergy Relief (cetirizine) 10 mg capsule 10 mg PO DAILY PRN olopatadine 0.6 % spray,non-aerosol 2 spray intranasal BID Rx Instructions: administer into each nostril magnesium citrate 100 mg tablet 100 mg PO DAILY mecobalamin (vitamin B12) 1,000 mcg tablet,chewable 1,000 mcg PO DAILY cholecalciferol (vitamin D3) 50 mcg (2,000 unit) tablet 50 mcg PO DAILY Qty: 90 0RF Biotene Dry Mouth Oral Rinse Mouthwash 15 ml mucous membrane QID PRN (Reason: dry mouth) Qty: 1000 0RF Rx Instructions: swish for 15-30 secs , then spit out; do not swallow rosuvastatin 10 mg tablet 10 mg PO DAILY Qty: 90 3RF pantoprazole 20 mg tablet,delayed release (DR/EC) 20 mg PO QAM Qty: 90 2RF trazodone 50 mg tablet 50 mg PO QHS PRN (Reason: sleep) Qty: 30 4RF diltiazem HCl [Tiadylt ER] 120 mg capsule,extended release 24 hr 120 mg PO DAILY Qty: 180 3RF furosemide 20 mg tablet 20 mg PO QAM Qty: 30 5RF alprazolam 0.25 mg tablet 0.25 mg PO DAILY PRN (Reason: anxiety) Qty: 30 0RF hydralazine 100 mg tablet 100 mg PO TID Qty: 270 1RF metoprolol succinate 25 mg tablet extended release 24 hr 12.5 mg PO DAILY Qty: 15 4RF Follow-up/Referrals: Ty Aponte MD [Physician] - Zhang Jade MD [Physician] -
[2024-04-22] MEDS: SODIUM CHLORIDE 0.9% IV 1,000 ML 999 ML IV CONT (15:23)
--- NOTE | 2024-04-22 17:24 | PC.NURSE ---
Patient ambulated to the restroom with steady gate
--- NOTE | 2024-04-22 17:55 | ECG_ITS ---
Test Date: 2024-04-22 18:00:29 Measurements Intervals [place] Rate: 82 P: 49 UT: 155 QRS: 9 QRSD: 90 T: -20 QT: 379 QTc: 444 Interpretive Statements SINUS RHYTHM MODERATE T-WAVE ABNORMALITY, CONSIDER ANTERIOR ISCHEMIA [-0.1+ mV T-WAVE IN V3/V4] Compared to ECG 04/22/2024 12:34:56 Possible ischemia now present T-wave abnormality still present Electronically Signed On 04-23-2024 14:27:48 LOAN MANAGER by Ty Aponte M.D.
[2024-04-22 18:00] LABS: Troponin I < 0.012 ng/mL (0.000-0.034)
== END 2024-04-22 19:33 | disposition home or self-care (01) ==
PROVIDERS: Emergency Provider Emergency Medicine; PCP Internal Medicine
DX: R00.2 Palpitations (principal); E86.0 Dehydration; Z79.82 Long term (current) use of aspirin; I10 Essential (primary) hypertension; E78.5 Hyperlipidemia, unspecified; G47.33 Obstructive sleep apnea (adult) (pediatric); Z85.3 Personal history of malignant neoplasm of breast
CPT/HCPCS: 36415; 71046; 80053; 83690; 84484; 85025; 85610; 85730; 93005; 96360; 99284; J7030

== ENCOUNTER 2024-05-07 21:59 | Emergency (ER) | payer MEDICARE, SELFPAY ==
[2024-05-07 22:03] VITALS: BP 178/70; PULSE 101; RESP 17; TEMP 36.3; O2SAT 100
--- NOTE | 2024-05-07 22:06 | ECG_ITS ---
Test Date: 2024-05-07 22:11:21 Measurements Intervals [place] Rate: 89 P: 40 ND: 159 QRS: -5 QRSD: 85 T: -2 QT: 343 QTc: 419 Interpretive Statements SINUS RHYTHM Compared to ECG 04/22/2024 18:00:29 T-wave abnormality no longer present Possible ischemia no longer present Electronically Signed On 05-08-2024 10:21:24 STABLE HELPER by Yahir Gonzalez M.D.
--- NOTE | 2024-05-07 23:37 | ED_ITS ---
HPI - General Adult General Chief complaint: Arrhythmia/Palpitations Stated complaint: palpitations, shaky Time Seen by Provider: 05/07/24 23:25 History of Present Illness HPI narrative: [age] old female presenting to the emergency department for evaluation for intermittent palpitations. Patient was recently started on hydralazine and diltiazem. Related Data Home Medications ?Medication ?Instructions ?Recorded ?Confirmed ?Last Taken ?Type aspirin 81 mg tablet,delayed 81 mg PO DAILY 10/09/21 04/04/24 Unknown History release (Adult Low Dose Aspirin) calcium 315 mg (as 1 tablet PO DAILY 10/09/21 04/04/24 Unknown History citrate)-vitamin D3 6.25 mcg (250 unit) tablet (Citracal + Vitamin D Maximum) [id number] 8 mg-folic 400 1 tablet PO DAILY 10/09/21 04/04/24 Unknown History mcg-K 50 mcg-lutein 300 mcg tablet (Centrum Silver Women) fluticasone propionate 50 1 spray intranasal DAILY 05/13/22 04/04/24 Unknown History mcg/actuation nasal spray,suspension cetirizine 10 mg capsule (Allergy 10 mg PO DAILY PRN 01/05/23 04/04/24 Unknown History Relief (cetirizine)) olopatadine 0.6 % nasal spray 2 spray intranasal BID 01/05/23 04/04/24 Unknown History magnesium citrate 100 mg tablet 100 mg PO DAILY 01/25/24 04/04/24 Unknown History mecobalamin (vitamin B12) 1,000 1,000 mcg PO DAILY 01/25/24 04/04/24 Unknown History mcg chewable tablet Allergies Allergy/AdvReac Type Severity Reaction Status Date / Time meperidine Allergy Mild Hives Verified 05/07/24 23:23 niacin Allergy Mild Hives Verified 05/07/24 23:23 sertraline AdvReac Intermediate facial Verified 05/07/24 23:23 twitching demeral Allergy Intermediate Hallucinati Uncoded 05/07/24 23:23 ng Review of Systems 2 Review of Systems: All systems reviewed & are unremarkable except as noted in HPI and below PMFSH Past Medical History Medical History Anxiety Breast cancer History of vaginal delivery Hyperlipidemia Hypertension Obstructive sleep apnea Surgical History Surgical History History of hysterectomy History of laparoscopy History of lumpectomy of both breasts Family History Family History Sibling Colon cancer Other Breast cancer Diabetes mellitus Hypertension Social History Social History Social History: never smoker Smoking status: Never smoker Alcohol intake: never Substance use: never Lack of Transportation: No Lack of Food: Never True Current Housing: I Have Housing Concerned About Future Housing: No Difficulty Paying Gas/Electric Bills: Decline to Answer Difficulty Paying for Meds: Decline to Answer Currently Unemployed: No Education: Bachelor's Degree Difficulty w/ Childcare or Family Care: No Living arrangements: with family Occupation/Education: retired Gender identity (if verbalized by the patient): Female Sexual Orientation (if Verbalized by the Patient): Straight or Heterosexual Spiritual care concerns: No Agree to blood products: Yes Exam 2 Narrative: APPEARANCE: Well appearing, no pain, no distress, well-nourished. HEAD: normocephalic, atraumatic. EYES: PERRLA/EOMI, conjunctivae clear. NOSE: Normal no drainage EARS:TMS clear with good light reflex. THROAT: Pharynx clear, no exudate. NECK: Supple. No adenopathy, no masses. RESPIRATORY: Airway patent, respirations nonlabored. Clear to auscultation bilaterally, no rales, rhonchi, wheezing. CARDIOVASCULAR: Regular rate and rhythm without murmurs rubs or gallops. ABDOMINAL: Soft, nontender, nondistended, normal bowel sounds MUSCULOSKELETAL: Moves all extremities. Strength/ROM intact, No edema, No calf tenderness. NEURO: Alert. Cranial nerves II through XII intact. Good gait. Good coordination SKIN: Warm, dry. Normal Color PSYCHIATRIC: Normal affect/mood. Course Vital Signs Vital signs: Vital Signs Temperature 97.4 F L 05/07/24 22:03 Pulse Rate 101 H 05/07/24 22:03 Respiratory Rate 17 05/07/24 22:03 Blood Pressure 178/70 H 05/07/24 22:03 Pulse Oximetry 100 05/07/24 22:03 Oxygen Delivery Room Air 05/07/24 22:03 Temperature 97.4 F L 12/21/24 22:03 Pulse Rate 64 05/08/24 00:31 Respiratory Rate 14 05/08/24 00:31 Blood Pressure 112/59 L 05/08/24 00:31 Pulse Oximetry 96 05/08/24 00:31 Oxygen Delivery Room Air 05/07/24 22:03 Medical Decision Making MDM Narrative Medical decision making narrative: [age] old female presenting to the emergency department for evaluation for heart palpitations. Patient does not have a sensation heart palpitations but has been measuring her heart rate and blood pressure. Patient is afebrile she is not tachycardic she is normotensive patient has no leukocytosis and hemoglobin of 13.3. No acute abnormalities on the CMP thyroid hormone was normal Mag is normal. Vital Signs Vital Signs: Vital Signs Temperature 97.4 F L 05/07/24 22:03 Pulse Rate 101 H 05/07/24 22:03 Respiratory Rate 17 05/07/24 22:03 Blood Pressure 178/70 H 05/07/24 22:03 Pulse Oximetry 100 05/07/24 22:03 Oxygen Delivery Room Air 05/07/24 22:03 Temperature 97.4 F L 05/07/24 22:03 Pulse Rate 64 05/08/24 00:31 Respiratory Rate 14 05/08/24 00:31 Blood Pressure 112/59 L 05/08/24 00:31 Pulse Oximetry 96 05/08/24 00:31 Oxygen Delivery Room Air 05/07/24 22:03 Lab Data 05/07/24 23:52 05/07/24 23:52 Labs: Lab Results 05/07/24 Range/Units 23:52 WBC 8.7 (4.5-10.0) K/mm3 RBC 4.04 L (4.2-5.4) M/mm3 Hgb 13.3 (12.0-15.0) g/dL Hct 39.5 (37.0-47.0) % MCV 97.8 (80-100) fl MCH 32.9 (26-34) pg MCHC 33.7 (32-36) g/dl RDW 12.7 (11.5-14.5) % Plt Count 223 (150-375) k/mm3 MPV 9.8 (7.4-10.4) fl Immature Gran % (Auto) 0.2 (0-0.5) % Neut % (Auto) 71.1 (45.5-73.1) % Lymph % (Auto) 18.9 (18.3-44.2) % [place] % (Auto) 8.6 H (2.6-8.5) % Eos % (Auto) 0.7 (0-4.4) % Baso % (Auto) 0.5 (0.2-1.2) % Lymph # (Auto) 1.65 (0.9-3.2) K/mm3 [place] # (Auto) 0.8 H (0.1-0.6) K/mm3 Eos # (Auto) 0.1 (0-0.3) K/mm3 Baso # (Auto) 0.0 (0.0-0.1) K/mm3 Abs Immat Gran (auto) 0.02 (0.00-0.031) K/mm3 Absolute Neuts (auto) 6.2 (1.3-6.7) K/mm3 Absolute Nucleated RBC 0.000 (0.0-0.012) K/mm3 Nucleated RBC % 0.0 (0.0-0.2) % Sodium 138 (137-145) mmol/L Potassium 4.0 (3.4-5.0) mmol/L Chloride 107 (98-107) mmol/L Carbon Dioxide 27 (22-30) mmol/L Anion Gap 4 (4-12) mmol/L BUN 18 H (7-17) mg/dL Creatinine 0.70 (0.7-1.0) mg/dL Estim Creat Clear Calc Not Reportable Estimated GFR > 60 (59 - ) Glucose 127 H (65-110) mg/dL Calcium 9.1 (8.4-10.2) mg/dL Magnesium 2.3 (1.6-2.3) mg/dL Total Bilirubin 0.4 (0.2-1.3) mg/dL AST 41 H (14-36) U/L ALT 21 (6-35) U/L Alkaline Phosphatase 57 (38-126) U/L Total Protein 7.0 (6.3-8.2) g/dL Albumin 4.3 (3.5-5.1) g/dL TSH (Reflex) 1.350 (0.465-4.68) uIU/mL Discharge Plan Discharge Clinical Impression: Heart palpitations Patient Disposition: Home, Self-Care Condition: Stable Instructions: Antibiotic Form, Heart Palpitations (DC) Additional Instructions: Continue to monitor your heart rate and blood pressure. Have close follow-up with your primary care physician. If you have any worsening symptoms then please call or return to the emergency department. Patient Language: Ethiopian Prescriptions: No Action aspirin [Adult Low Dose Aspirin] 81 mg tablet,delayed release (DR/EC) 81 mg PO DAILY calcium citrate-vitamin D3 [Citracal + D Maximum] 315 mg-6.25 mcg (250 unit) tablet 1 tablet PO DAILY Centrum Silver Women 8 mg iron-400 mcg-300 mcg tablet 1 tablet PO DAILY fluticasone propionate 50 mcg/actuation spray,suspension 1 spray intranasal DAILY Rx Instructions: administer into each nostril valsartan 320 mg tablet 320 mg PO DAILY Qty: 30 3RF Allergy Relief (cetirizine) 10 mg capsule 10 mg PO DAILY PRN olopatadine 0.6 % spray,non-aerosol 2 spray intranasal BID Rx Instructions: administer into each nostril magnesium citrate 100 mg tablet 100 mg PO DAILY mecobalamin (vitamin B12) 1,000 mcg tablet,chewable 1,000 mcg PO DAILY cholecalciferol (vitamin D3) 50 mcg (2,000 unit) tablet 50 mcg PO DAILY Qty: 90 0RF Biotene Dry Mouth Oral Rinse Mouthwash 15 ml mucous membrane QID PRN (Reason: dry mouth) Qty: 1000 0RF Rx Instructions: swish for 15-30 secs , then spit out; do not swallow rosuvastatin 10 mg tablet 10 mg PO DAILY Qty: 90 3RF pantoprazole 20 mg tablet,delayed release (DR/EC) 20 mg PO QAM Qty: 90 2RF trazodone 50 mg tablet 50 mg PO QHS PRN (Reason: sleep) Qty: 30 4RF diltiazem HCl [Tiadylt ER] 120 mg capsule,extended release 24 hr 120 mg PO DAILY Qty: 180 3RF furosemide 20 mg tablet 20 mg PO QAM Qty: 30 5RF alprazolam 0.25 mg tablet 0.25 mg PO DAILY PRN (Reason: anxiety) Qty: 30 0RF hydralazine 100 mg tablet 100 mg PO TID Qty: 270 1RF metoprolol succinate 25 mg tablet extended release 24 hr 12.5 mg PO DAILY Qty: 15 4RF Follow-up/Referrals: Tom Jamison DO [Primary Care Provider] -
[2024-05-07 23:46] VITALS: BP 114/66; PULSE 61; RESP 13
[2024-05-07] MEDS: SODIUM CHLORIDE 0.9% IV 1,000 ML 999 ML IV CONT (23:51)
[2024-05-07 23:54] VITALS: PULSE 60
[2024-05-08 00:01] VITALS: BP 114/55; PULSE 61; RESP 13; O2SAT 96
[2024-05-08 00:16] VITALS: BP 113/62; PULSE 65; RESP 14; O2SAT 96
[2024-05-08 00:18] LABS: Basophils Percent Auto 0.5 % (0.2-1.2); Eosinophils Absolute Auto 0.1 K/mm3 (0-0.3); Eosinophils Percent Auto 0.7 % (0-4.4); Hematocrit 39.5 % (37.0-47.0); Hemoglobin 13.3 g/dL (12.0-15.0); Immature Granulocyte Absolute 0.02 K/mm3 (0.00-0.031); Immature Granulocyte Percent A 0.2 % (0-0.5); Lymphocytes Absolute Auto 1.65 K/mm3 (0.9-3.2); Lymphocytes Percent Auto 18.9 % (18.3-44.2); Mean Corpuscular HGB Conc 33.7 g/dl (32-36); Mean Corpuscular Hemoglobin 32.9 pg (26-34); Mean Corpuscular Volume 97.8 fl (80-100); Mean Platelet Volume 9.8 fl (7.4-10.4); Monocytes Absolute Auto 0.8 K/mm3 (0.1-0.6); Monocytes Percent Auto 8.6 % (2.6-8.5); Neutrophils Absolute Auto 6.2 K/mm3 (1.3-6.7); Neutrophils Percent Auto 71.1 % (45.5-73.1); Platelet Count Result 223 k/mm3 (150-375); Red Blood Count 4.04 M/mm3 (4.2-5.4); Red Cell Distribution Width 12.7 % (11.5-14.5); White Blood Count 8.7 K/mm3 (4.5-10.0)
[2024-05-08 00:30] LABS: Anion Gap 4 mmol/L (4-12); Blood Urea Nitrogen 18 mg/dL (7-17); Carbon Dioxide 27 mmol/L (22-30); Chloride 107 mmol/L (98-107); Sodium 138 mmol/L (137-145)
[2024-05-08 00:31] VITALS: BP 112/59; PULSE 64; RESP 14; O2SAT 96
[2024-05-08 00:31] LABS: Alanine Aminotransferase 21 U/L (6-35); Albumin Level 4.3 g/dL (3.5-5.1); Alkaline Phosphatase 57 U/L (38-126); Aspartate Amino Transferase 41 U/L (14-36); Bilirubin,Total 0.4 mg/dL (0.2-1.3); Calcium 9.1 mg/dL (8.4-10.2); Estimated Glomerular Filt Rate > 60; Glucose 127 mg/dL (65-110); Magnesium 2.3 mg/dL (1.6-2.3)
[2024-05-08 01:01] VITALS: BP 100/51; PULSE 59; RESP 15; O2SAT 96
[2024-05-08 01:31] VITALS: BP 105/59; PULSE 58; RESP 15; O2SAT 97
[2024-05-08 02:01] VITALS: BP 134/106; PULSE 67; RESP 17; O2SAT 97
== END 2024-05-08 02:05 | disposition home or self-care (01) ==
PROVIDERS: Emergency Provider Emergency Medicine; PCP Internal Medicine
DX: R00.2 Palpitations (principal); Z79.82 Long term (current) use of aspirin; Z85.3 Personal history of malignant neoplasm of breast; E78.5 Hyperlipidemia, unspecified; I10 Essential (primary) hypertension
CPT/HCPCS: 36415; 80053; 83735; 84443; 85025; 93005; 96360; 96361; 99283; J7030

== ENCOUNTER 2024-11-19 03:10 | Emergency (ER) | payer MEDICARE, SELFPAY ==
--- NOTE | ~2024-11-19 | XR_ITS ---
CHEST RADIOGRAPH CLINICAL HISTORY: HTN . COMPARISON: 04/22/2024 TECHNIQUE: Single portable view of the chest. Examination is somewhat limited by patient rotation. FINDINGS The cardiomediastinal silhouette is enlarged, unchanged. Prominence of the right hilum, likely secondary to patient rotation. The remainder the lungs are clear. IMPRESSION: No focal infiltrate or effusion. Reviewed, dictated and finalized at location A.
--- OUTSIDE RECORDS SUMMARY | 2024-11-19 03:12 | XMS_ITS | Clinical Summary ---
Author Organization [facility] Address [address] [place] [address] Care Team Providers Care Crossbar Switch Adjuster Name Role Phone Marty Waller MD Unavailable Lorena Chow MD Unavailable [phone] Marilin Benitez MD Unavailable [phone] Heather Lima PhD Unavailable [phone] Tom Jamison DO Primary Care Provider [phone] Allergies Active Allergy Reactions Criticality Noted Date Comments Meperidine Unknown 11/03/2014 Niacin Unknown 01/16/2015 Medications aspirin 81 mg tablet Take 1 tablet 3 days a week. Active fluticasone (FLONASE) 50 mcg/actuation nasal spray as needed Active multivitamin tabletIndicatio ns:Vitamin Deficiency Prevention daily. Active cetirizine (ZyrTEC) 10 mg tablet TAKE 1 TABLET DAILY NEEDED. Active pantoprazole DR (PROTONIX) 40 mg EC tablet 3 09/01/2018 Active rosuvastatin (CRESTOR) 10 mg tablet 10/29/2022 Active ALPRAZolam (XANAX) 0.25 mg tablet Take 1 tablet (0.25 mg total) by mouth daily as needed 10/24/2022 Active diltiazem (Tiadylt ER) 120 mg 24 hr capsule Take 1 capsule (120 mg total) by mouth daily Active magnesium gluconate 200 mg tabletIndicatio ns:hypomagnesem ia 1 tablet (200 mg total) Active hydrALAZINE (APRESOLINE) 50 mg tablet Take 1 tablet (50 mg total) by mouth 3 (three) times a day 04/19/2024 Active cyanocobalamin (Vitamin B-12) 1,000 mcg tabletIndicatio ns:Prevention of Vitamin B12 Deficiency Take 1 tablet (1,000 mcg total) by mouth daily Active valsartan (DIOVAN) 320 mg tablet Take 1 tablet (320 mg total) by mouth daily Takes 0.5 when BP is low 07/08/2024 Active traZODone (DESYREL) 50 mg tablet as needed 07/09/[address] (CYMBALTA) 20 mg capsule 07/08/2024 Active CALCIUM CITRATE-VITAMIN D3 ORAL Active metoprolol XL (TOPROL-XL) 25 mg extended release tabletIndicatio ns:Palpitations Take 1 tablet (25 mg total) by mouth daily 90 tablet 2 08/29/2024 Active Active Problems Problem Noted Date Diagnosed Date Primary hypertension 04/29/2024 Palpitations 04/29/2024 Mixed hyperlipidemia 04/29/2024 History of bilateral breast cancer 12/28/2018 Carcinoma of central portion of left breast in female, estrogen receptor positive 12/28/2018 Cancer Staging:Clinical stage from 12/01/2014:Stage 0(cTis (DCIS), cN0, cM0, ER+, MI+, HER2: Not Assessed) - Signed by Heather Lima, PhD on 12/28/2018 Pathologic stage from 12/11/2014:Stage IA(pT1a, pN0(sn), cM0, G1, ER+, MI+, HER2- ) - Signed by Heather Lima, PhD on 12/28/2018 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 01/16/2015 Cancer Staging:Clinical stage from 11/03/2014:Stage IA(T1, N0, M0) - Signed by Heather Lima, PhD on 12/28/2018 Pathologic stage from 12/11/2014:Stage IA(T1b, N0, cM0) - Signed by Heather Lima, PhD on 12/28/2018 Encounters Date Type Department Care Team Description 08/29/2024 Telephone [facility] [address] [place] [address] Chilango Bernal MD from Last 3 Months Immunizations Immunization Administration Dates Next Due Influenza, Quadrivalent, Hig h Dose, Preservative Free, Intrr 03/05/2020 Pfizer SARS-CoV-2 Monovalent Vaccination (12+ Yrs) PURPLE 08/05/2020,07/15/2020 Surgical History Surgery Date Site/Laterality Comments US UNLISTED PROCEDURE LYMPH SYSTEM 12/27/2014 N/A US UNLISTED PROCEDURE LYMPH SYSTEM 12/11/2014 N/A Medical History Medical History Date Comments Hypertension Family History Medical History Relation Name Comments Colon cancer Brother Anemia Maternal Grandfather Hypertension Mother Diabetes Paternal Grandfather Breast cancer Sister Relation Name Status Comments Brother Father Maternal Grandfather Mother Paternal Grandfather Sister Social History Tobacco Use Types Packs/Day Years Used Date Smoking Tobacco: Never Smokeless Tobacco: Never Tobacco Cessation:Counseling Given: Not Answered Comments No Sex and Gender Information Value Date Recorded Sex Assigned at Not on file Legal Sex Female 3:44 AM INJURY PREVENTION COORDINATOR Gender Identity Not on file Sexual Orientation Not on file Obstetrics History Last Filed Vital Signs Vital Sign Reading Time Taken Comments Blood Pressure 144/68 07/13/2024 10:30 AM INJURY PREVENTION COORDINATOR Pulse 87 07/13/2024 10:30 AM INJURY PREVENTION COORDINATOR Temperature 36.3 C (97.4 F) 12/01/2023 12:33 PM CDT Respiratory Rate 18 12/01/2023 12:33 PM CDT Oxygen Saturation 98% 07/13/2024 10:30 AM INJURY PREVENTION COORDINATOR Inhaled Oxygen Concentration - - Weight 58.5 kg (129 lb) 07/13/2024 10:30 AM INJURY PREVENTION COORDINATOR Height 149.9 cm (4' 11) 07/13/2024 10:30 AM INJURY PREVENTION COORDINATOR Body Mass Index 26.05 07/13/2024 10:30 AM INJURY PREVENTION COORDINATOR Plan of Treatment Health Maintenance Due Date Last Done Comments Colon Cancer Screening-Colonoscopy 1950 Depression Screening 1950 Fall Risk Assessment 1950 Hepatitis C Screening 1950 DTaP/Tdap/Td Vaccine (1 - Tdap) 1960 Hepatitis B Screening 07/21/1967 Pneumococcal vaccine 65+ (1 of 1 - PCV) 07/21/1999 Zoster Vaccine (1 of 2) 07/21/1999 Well Visit 65+ 2014 Osteoporosis Screening-Bone Density Scan 10/09/2023 10/08/2021, 10/23/2020, 05/27/2018, Additional history exists Covid-19 Vaccine (3 - 2023-2 5 season) 2024 08/05/2020, 07/15/2020 Influenza Vaccine (#1) 2025 03/05/2020 Breast Cancer Screening-Mammogram Discontinued 03/07/2024, 03/02/2023, 01/07/2022, Additional history exists Procedures Procedure Name Priority Date/Time Associated Diagnosis Comments SCREENING MAMMOGRAM BILATERAL W NATHAN Schedule Routine, Read Routine (OP Routine) 03/07/2024 10:59 AM CDT History of bilateral breast cancer Encounter for screening mammogram for malignant neoplasm of breast DEXA AXIAL SKELETON BONE DENSITY 1 OR MORE SITES Schedule Routine, Read Routine (OP Routine) 10/08/2021 10:56 AM CDT Primary malignant neoplasm of upper inner quadrant of female breast (HCC) from Last 3 Months or Most Recently Relevant to Health Maintenance Results * Screening Mammogram Bilateral W Nathan (03/07/2024 10:59 AM CDT) Anatomical Region Laterality Modality Breast Bilateral Mammography Narrative 03/08/2024 9:25 AM CDT Mammogram Technique: Bilateral Digital Breast Tomosynthesis, Bilateral C-view 2D Screening mammogram. Views obtained: bilateral craniocaudal and bilateral mediolateral oblique. Computer Aided Detection was performed. Mammogram Findings: The present examination has been compared to prior imaging studies performed at [facility] on 12/25/2020, 01/07/2022 and 03/02/2023. The breasts are heterogeneously dense, which may obscure small masses. There are post breast conservation therapy changes in both breasts. There is no suspicious abnormality in either breast. Impression: There is no mammographic evidence of malignancy. Annual screening mammography is recommended. If supplemental screening is desired, breast MRI would be recommended in this patient with heterogeneously dense breasts. OVERALL FINAL ASSESSMENT: BI-RADS CATEGORY 2: Benign. Procedure Note Lana Mitchell MD - 03/08/2024 Mammogram Technique: Bilateral Digital Breast Tomosynthesis, Bilateral C-view 2D Screening mammogram. Views obtained: bilateral craniocaudal and bilateral mediolateral oblique. Computer Aided Detection was performed. Mammogram Findings: The present examination has been compared to prior imaging studies performed at [facility] on 12/25/2020, 01/07/2022 and 03/02/2023. The breasts are heterogeneously dense, which may obscure small masses. There are post breast conservation therapy changes in both breasts. There is no suspicious abnormality in either breast. Impression: There is no mammographic evidence of malignancy. Annual screening mammography is recommended. If supplemental screeningis desired, breast MRI would be recommended in this patient with heterogeneously dense breasts. OVERALL FINAL ASSESSMENT: BI-RADS CATEGORY 2: Benign. Florecita Dove NP IMG MAMMO PROCEDURES Final Result * Dexa Axial Skeleton Bone Density 1 or 2 Site (10/08/2021 10:56 AM CDT) Anatomical Region Laterality Modality Body N/A Radiographic Yumiko ging Narrative 10/08/2021 11:04 AM CDT Patient Name: Ana Chavez Date of : 1950 Date of scan: 10/08/2021 Bone mineral density was performed on a [employer] Densitometer. Based on machine cross-calibration and precision studies the least significant changes of this densitometer is 0.024 g/cm2 at the spine, 0.020 g/cm2 at the total proximal femur, and 0.014g/cm2 at the forearm. HISTORY: This is a 71 y.o. postmenopausal female with a history of breast cancer and low bone mass. She reports that she has never smoked. She has never used smokeless tobacco. Currently on treatment with calcium, vitamin D, and diuretics, previously treated with alendronate (Fosamax) and aromatase inhibitor, and current complaint of leg pain. INDICATIONS: Menopause status and history of low bone mass. FINDINGS: BONE MINERAL DENSITY OF THE LUMBAR SPINE Bone Mineral Density (BMD) of the lumbar spine was measured from L1-L4 and the average density was calculated to be 0.874 gm/cm2. This corresponds to a T-score (standard deviations from the mean of young adults) of -1.6. When compared to the previous study of 10/23/2020 there has been no significant changes in bone density. BONE MINERAL DENSITY OF THE PROXIMAL FEMUR Bone Mineral Density (BMD) of the left hip total was found to be 0.892 gm/cm2. This corresponds to a T-score standard deviations from the mean of young adults of -0.4. Femoral neck is 0.668 gm/cm2 with a T-score (standard deviations from the mean of young adults) of -1.6. When compared to the previous study of 10/23/2020 there has been no significant changes in bone density. SUMMARY: Bone mineral density shows evidence of low bone mass at the lumbar spine and proximal femur and moderately increased fracture risk (Osteopenia). There has been no significant changes in bone density since previous measurement. ADDITIONAL COMMENTS: Postmenopausal Women and Men Over 50: Diagnostic criteria: Osteoporosis: BMD at or below -2.5 T-score; Osteopenia (low bone mass): BMD between -1.0 and -2.5 T-score. If the patient has a history of a fragility fracture, a fracture that occurred with trauma equivalent to a fall from a standing position or less, then the diagnosis is osteoporosis regardless of bone density. The history and data sections of the bone mineral density scan were prepared by Ange Woodard)(Lissy)(), CBDT who is accredited by the International Society of Clinical Densitometry. The overall patient assessment and scan interpretation were performed by Carmina Rollins MD who is certified by the International Society of Clinical Densitometry. [id number] Marilin Benitez MD [facility] DXA PROCEDURES F inal Result from Last 3 Months or Most Recently Relevant to Health Maintenance Insurance MEDICARE [facility]IC[facility] Care Teams Crossbar Switch Adjuster Relationship Specialty Start Date End Date Tom Jamison DO [address] [facility] [address] [place] [address] PCP - General Internal Medicine 02/23/24 Marty Waller MD Radiation Oncologist Radiation Oncology 12/28/18 Lorena Chow MD [address] [place] [address] Surgeon Surgical Oncology 12/28/18 Marilin Benitez MD [address] [place] [address] Medical Oncologist/Space Planner Medical Oncology 12/28/18 Heather Lima, PhD [address] [place] [address] Nurse Practitioner Radiation Oncology 12/28/18
--- OUTSIDE RECORDS SUMMARY | 2024-11-19 03:12 | XMS_ITS | Data Portability ---
Author Organization [place] - [facility], Main Office Address [address] [place] [address] Care Team Providers Care Education Diagnostician Name Role Phone OLIVIA ROQUE Primary Care Provider OLIVIA ROQUE Referring Provider Assessment No assessment recorded. Plan of Treatment Reminders Order Date Submit Date Provider Last Modified By Organization Details Last Modified Time Details Appointments None recorded. Lab None recorded. Referral None recorded. Procedures None recorded. Surgeries endoscopy, nasal/sinus , w/ maxillary antrostomy & tissue removal (SURG) 2023 024 [email or web address] Not available 10:24:08 endoscopy, nasal/sinus , w/ total ethmoidecto my (SURG) 2023 024 [email or web address] Not available 10:24:08 endoscopy with removal of sphenoid sinus tissue (SURG) 2023 024 [email or web address] Not available 10:24:08 Imaging None recorded. Medication Orders Ciprodex 0.3 %-0.1 % ear drops,suspe nsion 2023 024 [email or web address] [id number], [address], [place], [address], 4 15:31:05 cefdinir 300 mg capsule 2023 024 [email or web address] [id number], [address], [place], [address], 4 15:31:01 prednisone 20 mg tablet 2023 024 [email or web address] [id number], [address], [place], [address], 4 15:31:15 Patient TargetsNo targets recorded. Patient Instructions Encounter Date Encounter Id Patient Instructions Last Modified By Organization Details Last Modified Time 02/25/2024 [id number] the duct will be dilated at the same time as sinus surgery hever Not available 02/25/2024 15:54:10 Reason for Referral None Reported. Results Created Date Observation Date Name Description Value Unit Range Abnormal Flag Note LastModifiedBy Organization Detail LastModifiedTime 02/11/20 24 02/11/2024 CT, sinus es, w/o contr ast No observ ation record ed. [address] [facility], [place], [address], 02/23/2024 11:37:05 02/11/20 24 02/11/2024 CT, sinus es, w/o contr ast No observ ation record ed. [address], [place], [address], 02/23/2024 11:37:06 Result Notes None recorded. Problems Name Problem SNOMED Code Status Onset Date Resolution Date Notes Provider Name and Address Organization Details Recorded Time Osteoarthr itis 585697205 Active Not Available [facility] 3 19:29:24 Chronic sinusitis 59517238 Active 2023 Nani Benavidez RN null, [employer] 4 15:20:03 Dysfunctio n of right eustachian tube 6597534928706 101 Active 2023 LUCILA Davenport [address], [place], [address] , [employer] 4 15:24:46 Chronic maxillary sinusitis 70554888 Active 2023 Francisco Adkins MD [address], [address], [place], [address] , [employer] 4 15:52:51 Chronic ethmoidal sinusitis 58207276 Active 2023 Francisco Adkins MD [address] [facility], [place], [address] , [employer] 4 15:53:02 Chronic sphenoidal sinusitis 67522776 Active 2023 Francisco Adkins MD [address] [facility], [place], [address] , [employer] 4 15:53:10 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 Procedures Surgical History Date Name Laterality Status Provider Name and Address Organization Details Recorded Time ear excision completed Nani adler RN [facility] [employer] 01/28/2024 15:02:06 Imaging Results None recorded. Procedure Notes None recorded. Medical Equipment None Reported. Allergies No known drug allergies Medications Name Sig Start Date Stop Date Status Note LastModified by Organization Details LastModified Time amoxicillin 500 mg capsule 11/30 completed Not Available Not Available Not Available anastrozole 1 mg tablet 11/30 completed Not Available Not Available Not Available citalopram 40 mg tablet 11/30 completed Not Available Not Available Not Available trazodone 50 mg tablet TAKE 1 TABLET BY MOUTH ONCE DAILY AT BEDTIME NEEDED FOR SLEEP active Not Available Not Available No t Available metoprolol succinate ER 50 mg tablet,exte nded release 24 hr TAKE 1 TABLET BY MOUTH EVERY DAY 01/27 completed Not Available Not Available Not Available lisinopril 20 mg tablet 11/30 completed Not Available Not Available Not Available prednisone 20 mg tablet TAKE 1 TABLET BY MOUTH EVERY DAY FOR 5 DAYS 02/24 completed Not Available Not Available Not Available terconazole 0.8 % vaginal cream INSERT 1 APPLICATO RFUL VAGINALLY DAILY AT BEDTIME X3 DAYS 01/27 completed Not Available Not Available Not Available hydralazine 25 mg tablet TAKE 1 TABLET BY MOUTH TWICE A DAY active Not Available Not Available No t Available Zyrtec 10 mg tablet Take 1 tablet every day by oral route. active Not Available Not Available No t Available pantoprazol e 20 mg tablet,linnette yed release TAKE 1 TABLET BY MOUTH EVERY DAY EVERY MORNING active Not Available Not Available No t Available alprazolam 0.5 mg tablet 11/30 completed Not Available Not Available Not Available clonidine HCl 0.2 mg tablet TAKE 1 TABLET 0.2 MG ORALLY EVERY DAY AT BEDTIME active Not Available Not Available No t Available alprazolam 0.25 mg tablet TAKE 1 TABLET DAILY NEEDED FOR ANXIETY active Not Available Not Available No t Available hydralazine 100 mg tablet TAKE 1 TABLET BY MOUTH THREE TIMES A DAY active Not Available Not Available No t Available pantoprazol e 40 mg tablet,linnette yed release 11/30 completed Not Available Not Available Not Available neomycin-po lymyxin-dex ameth 3.5 mg/mL-10,00 0 unit/mL-0.1 % eye drops 11/30 completed Not Available Not Available Not Available fluorometho lone 0.1 % eye drops,suspe nsion INSTILL 1 DROP INTO BOTH EYES 3 TIMES DAILY active Not Available Not Available No t Available valsartan 320 mg tablet TAKE 1 TABLET BY MOUTH ONCE DAILY active Not Available Not Available No t Available buspirone 7.5 mg tablet TAKE 1 TABLET 3 TIMES A DAY BY ORAL ROUTE. 01/27 completed Not Available Not Available Not Available hydralazine 50 mg tablet TAKE 1 TABLET BY MOUTH THREE TIMES A DAY active Not Available Not Available No t Available furosemide 20 mg tablet TAKE 1 TABLET BY MOUTH EVERY DAY IN THE MORNING active Not Available Not Available No t Available metoprolol succinate ER 25 mg tablet,exte nded release 24 hr TAKE 1 TABLET (25 MG TOTAL) BY MOUTH DAILY. active Not Available Not Available No t Available ergocalcife rol (vitamin D2) 1,250 mcg (50,000 unit) capsule TAKE 1 CAPSULE BY MOUTH 1 TIME A WEEK active Not Available Not Available No t Available cefdinir 300 mg capsule TAKE 1 CAPSULE BY MOUTH EVERY 12 HOURS FOR 7 DAYS active Not Available Not Available No t Available losartan 100 mg tablet TAKE 1 TABLET BY MOUTH DAILY 02/24 completed Not Available Not Available Not Available amoxicillin 875 mg-potassiu m clavulanate 125 mg tablet TAKE 1 TABLET BY MOUTH TWICE A DAY FOR 7 DAYS 01/27 completed Not Available Not Available Not Available amoxicillin 500 mg-acacia lott clavulanate 125 mg tablet TAKE 1 TABLET BY MOUTH TWICE A DAY FOR 7 DAYS active Not Available Not Available No t Available ciprofloxac in 0.3 %-dexametha sone 0.1 % ear drops,suspe nsion INSTILL 4 DROPS INTO RIGHT EAR(S) BY OTIC ROUTE 2 TIMES PER DAY FOR 7 DAYS active Not Available Not Available No t Available rosuvastati n 10 mg tablet TAKE 1 TABLET BY MOUTH EVERY DAY active Not Available Not Available No t Available rosuvastati n 20 mg tablet 11/30 completed Not Available Not Available Not Available metoprolol tartrate 25 mg tablet 11/30 completed Not Available Not Available Not Available duloxetine 20 mg capsule,del ayed release TAKE 1 CAPSULE BY MOUTH EVERY DAY active Not Available Not Available No t Available Vitamin B12 active Not Available Not A vailable Not Available Citracal + D Maximum active Not Available Not Available No t Available doxepin 6 mg tablet TAKE 1 TABLET BY MOUTH EVERY DAY AT BEDTIME NEEDED FOR SLEEP 01/27 completed Not Available Not Available Not Available Centrum Silver Women active Not Available Not Available Not Available Flonase Allergy Relief 50 mcg/actuati on nasal spray,suspe nsion [place] 1 spray every day by intranasa l route. active Not Available Not Available No t Available metoprolol succinate ER 50 mg capsule sprinkle, ext. release 24 hr Take 1 capsule every day by oral route. active Not Available Not Available No t Available Tiadylt ER 120 mg capsule,ext ended release TAKE 1 CAPSULE BY MOUTH DAILY active Not Available Not Available No t Available aspirin 81 mg capsule Take 1 capsule every day by oral route. active Not Available Not Available No t Available Paxlovid 300 mg (150 mg x 2)-100 mg tablets in a dose pack TAKE 2 150 MG TABLETS OF NIRMATREL VIR WITH 1 100 MG TABLET OF RITONAVIR TWICE DAILY FOR 5 DAYS 01/27 completed Not Available Not Available Not Available Vitals Date Recorded Body height Body mass index (BMI) Body weight Body temperature Provider Name and Address Organization Details Last Updated DateTime 01/28/2024 149.86 cm 26.3 kg/m2 49771.01 g 97.8 [degF] Nani Benavidez RN [place] [facility] [employer] 01/28/2024 15:03:43 Date Recorded Body height Body mass index (BMI) Body weight Body temperature Provider Name and Address Organization Details Last Updated DateTime 02/25/2024 149.86 cm 26.4 kg/m2 17965.88 g 97.7 [degF] Nani Benavidez RN [place] [facility] 02/25/2024 15:34:26 Social History None recorded. Functional Status Question Answer Note LastModified by Organization D etails LastModified Time What is your level of alcohol consumption? None [email or web address] Information not available 01/28/2024 Mental Status None recorded. Family History Relationship Description Onset Age of this Age Resolved Age Notes LastModified by Organization Details LastModified Time Sister Family history of Allergy [email or web address] Not available 01/16 11:50:05 Medical History Condition Response MRSA N ALLERGIES/HAYFEVER Y BACK INJECTIONS N LUNG DISEASE/DISORDER N ESRD N HISTORY OF DRUG ABUSE N INSOMNIA N COPD N RADIATION / CHEMOTHERAPY N HIGH CHOLESTEROL / HYPERLIPIDEMIA N HYPERTHYROIDISM N PVD N BLOOD DISEASES N EAR OR HEARING PROBLEMS N HYPOTHYROIDISM N SHINGLES N DEPRESSION (INCLUDING POST ) N BACK / NECK PROBLEMS N HAVE YOU BEEN HOSPITALIZED OR SEEN IN [facility] ER IN THE PAST YEAR ? N FAILED BACK SYNDROME N STROKE/TIA N POLYCYSTIC OVARIES N OBESITY N ANEURYSM N HISTORY WITH COMPLICATIONS WITH ANESTHES IA ? N Do you have Advance directive? N USE OF BLOOD THINNERS N NO SIGNIFICANT PAST MEDICAL HISTORY N DIABETES, TYPE N VON WILLIBRAND'S DISEASE N PARATHYROID DISEASE N ENT N SEASONAL ALLERGIES Y HEARTBURN / REFLUX N POST LAMINECTOMY SYNDROME N HEPATITIS / LIVER DISEASE N SLEEP DISORDER N ARTERIAL INSUFFICIENCY N SEIZURES/EPILEPSY N HEADACHES/MIGRAINES N CHF N PACEMAKER N DIZZINESS N HEART DISEASE/HEART PROBLEMS N AIDS/HIV N NEUROPSYCHOLOGICAL N HYPERTENSION Y CANCER: SPECIFY N TOURETTE'S N BLOOD TRANSFUSION N ANESTHESIA COMPLICATIONS N ANEMIA/BLOOD DISORDER N CHRONIC EAR INFECTIONS N ATRIAL FIBRILLATION N AUTOIMMUNE DISEASE N TUBERCULOSIS N Gynecological HistoryNo gynecological history recorded. Obstetrics History GPAL:G 0 P 0 0 0 0 Past Encounters Encounter ID Performer Location Encounter Start Date Encounter Closed Date Diagnosis/Indication Diagnosis SNOMED-CT Code Diagnosis ICD10 Code Diagnosis Note [id number] Francisco Adkins MD [facility] [place] [address] [place] [address] 01/28/2024 14:45:10 01/28/2024 15:26:12 Chronic sinusitis 84606279 J32.9 Dysfunctio n of right eustachian tube 1888817859 378649 H69.91 [id number] Francisco Adkins MD [facility] [place] [address] [place] [address] 02/25/2024 15:12:03 02/26/2024 10:48:01 Chronic sinusitis 63791645 J32.9 Chronic ma xillary sinusitis 95656788 J32.0 Chronic et hmoidal sinusitis 56731487 J32.2 Chronic sp henoidal sinusitis 84493499 J32.3 Stenosis o f salivary duct 24096745 K11.8 Health Concerns Section Related Observation LastModified by Organization Detai ls LastModified Time None Recorded Concern Status LastModified by Organization Details LastModified Time None Recorded Advance Directives Directive None Recorded Payers Insurance Date Sequence Insurance Name Policy Number Policy Tirado Covered Member ID Tirado Member ID Guarantor Name 04/22/2024 1 [place] Ana A Ayran [id number] Ana Ayran 04/22/2024 2 A[employer] (MEDICARE SUPPLEMENT) F Ana Ayran [id number] Ana Ayran Notes Date Note Type Note Provider Name and Address Organization Details Recorded Time 01/28/2024 text/html THIS PATIENT HAS A PAST MEDICAL HISTORY SIGNIFICANT FOR SEASONAL ALLERGIES, AND HTN. SHE PRESENTS TO THE OFFICE WITH COMPLAINT OF NASAL CONGESTION AND SINUS PRESSURE ONSET APPROXIMATELY 3 WEEKS AGO. SHE ALSO ENDORSES PND AND RIGHT OTALGIA. SHE DOES RECEIVE WEEKLY ALLERGY INJECTIONS. SHE PRESENTED TO THE URGENT CARE APPROXIMATELY 2 WEEKS AGO AND WAS PRESCRIBED AUGMENTIN FOR 7 DAYS IN WHICH SHE COMPLETED WITHOUT RESOLUTION OF SYMPTOMS. SHE ALSO REPORTS USE OF MUCINEX AND FLONASE WITHOUT RELIEF. SHE PREVIOUSLY HAD SEEN DR. RECINOS AND HAD IMAGING COMPLETED APPROXIMATELY 6-8 MONTHS AGO. WE WILL REPEAT CT OF HER SINUSES. LUCILA Davenport [address] [facility], [facility] [address], [place], [address], [facility] 01/28/2024 15:25:43 02/25/2024 text/html this patient was evaluated by CT scan demonstrating maxillary ethmoid and sphenoid sinusitis. In addition she reports swelling inside of her right cheek. This results in a dry mouth as well Francisco Adkins MD [address] [facility], [place] [address], [place], [address], [place] [facility] 02/25/2024 15:54:30 OBGyn Episode No OBEpisode recorded.
--- OUTSIDE RECORDS SUMMARY | 2024-11-19 03:12 | XMS_ITS ---
Author Organization [facility] [place] ([address]) Address [address] [place] [address] Care Team Providers Care Newspaper Writer Name Role Phone Brian Ibarra Primary Care Provider Unavailabl Jann Hollingsworth [phone] Tom Jamison Unavailable Unavailable REASON FOR VISIT ARC follow-up Encounters Encounter Location Date Provider Diagnosis [facility] [address] [place] [address] 02/23/2024 Jann Berg Plan Of Treatment No Information Progress Notes * Ana CHAVEZDOB: 0 (74 yo F)Acc No.[id number]:02/23/2024 Progress Notes Patient: Ana GODINEZ Provider: Scott Berg PA-C :1950 A ge:73 Y S ex:Female Date:02/23/2024 Address:[address] [facility] Pcp:Brian Ibarra Subjective: * Chief Complaints: * 1 . ARC follow-up. * Medical History: Objective: * Vitals: Assessment: Plan: * Treatment: * Billing Information: * Visit Code: * Procedure Codes: * Electronic signature of Loy Berg PA-C on 11/19/2024 at 03:12 AM CDT Sign off status: Pending * Provider: Scott Berg PA-C Date: 1 Generated for Caroline mondragon/Josafat/Jia on: 0 11/19/2024 03:12 AM CDT
--- OUTSIDE RECORDS SUMMARY | 2024-11-19 03:12 | XMS_ITS | Referral Summary ---
Author Organization [facility] Address [address] [place] [address] Care Team Providers Care Parachute/Combatant Diver Officer Name Role Phone Marty Waller MD Unavailable Lorena Chow MD Unavailable [phone] Marilin Benitez MD Unavailable [phone] Heather Lima PhD Unavailable [phone] Tom Jamison DO Primary Care Provider [phone] Encounters Date Type Department Care Team Description 08/29/2024 Telephone [facility] [address] [place] [address] Chilango Bernal MD from Last 3 Months Allergies Active Allergy Reactions Criticality Noted Date [...] from 12/01/2014:Stage 0(cTis (DCIS), cN0, cM0, ER+, DE+, HER2: Not Assessed) - Signed by Heather Lima, PhD on 12/28/2018 Pathologic stage from 12/11/2014:Stage IA(pT1a, pN0(sn), cM0, G1, ER+, DE+, HER2- ) - Signed by Heather Lima, PhD on 12/28/2018 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 01/16/2015 Cancer Staging:Clinical stage from 11/03/2014:Stage IA(T1, N0, M0) - Signed by Heather Lima, PhD on 12/28/2018 Pathologic stage from 12/11/2014:Stage IA(T1b, N0, cM0) - Signed by Heather Lima, PhD on 12/28/2018 Immunizations Immunization Administration Dates Next Due Influenza, Quadrivalent, Hig h Dose, Preservative Free, Intrr 03/05/2020 Pfizer SARS-CoV-2 Monovalent Vaccination (12+ Yrs) PURPLE 08/05/2020,07/15/2020 Social History Tobacco Use Types Packs/Day Years Used Date Smoking Tobacco: Never Smokeless Tobacco: Never Tobacco Cessation:Counseling Given: Not Answered Comments No Sex and Gender Information Value Date Recorded Sex Assigned at Not on file Legal Sex Female 3:44 AM RISK ADVISOR Gender Identity Not on file Sexual Orientation Not on file Last Filed Vital Signs Vital Sign Reading Time Taken Comments Blood Pressure 144/68 07/13/2024 10:30 AM RISK ADVISOR Pulse 87 07/13/2024 10:30 AM RISK ADVISOR Temperature 36.3 C (97.4 F) 12/01/2023 12:33 PM CDT Respiratory Rate 18 12/01/2023 12:33 PM CDT Oxygen Saturation 98% 07/13/2024 10:30 AM RISK ADVISOR Inhaled Oxygen Concentration - - Weight 58.5 kg (129 lb) 07/13/2024 10:30 AM RISK ADVISOR Height 149.9 cm (4' 11) 07/13/2024 10:30 AM RISK ADVISOR Body Mass Index 26.05 07/13/2024 10:30 AM RISK ADVISOR Plan of Treatment Not on file Procedures Procedure Name Priority Date/Time Associated Diagnosis [...] compared to prior imaging studies performed at [facility] on 12/25/2020, 01/07/2022 and 03/02/2023. The breasts [...] compared to prior imaging studies performed at [facility] on 12/25/2020, 01/07/2022 and 03/02/2023. The breasts [...] Bone mineral density was performed on a [employer] Discovery Densitometer. Based on machine cross-calibration and [...] mineral density scan were prepared by Ange Woodard)([email or web address]), CBDT who is accredited by the International Society of Clinical Densitometry. The overall patient assessment and scan interpretation were performed by Carmina Rollins MD who is certified by the International Society of Clinical Densitometry. [id number] Marilin Benitez MD IMG DXA PROCEDURES F inal Result from Last 3 Months or Most Recently Relevant to Health Maintenance Insurance MEDICARE [facility] MEDICARE [facility] MEDICARE [facility] Care Teams Parachute/Combatant Diver Officer Relationship Specialty Start Date End Date Tom Jamison DO [address] [address] PCP - General Internal Medicine 02/23/24 Marty Waller MD Radiation Oncologist Radiation Oncology 12/28/18 Lorena Chow MD [address] [place] [address] Surgeon Surgical Oncology 12/28/18 Marilin Benitez MD [address] [place] [address] Medical Oncologist/[employer] Hand Medical Oncology 12/28/18 Heather Lima, PhD [address] [place] [address] Nurse Practitioner Radiation Oncology 12/28/18
--- OUTSIDE RECORDS SUMMARY | 2024-11-19 03:12 | XMS_ITS | Data Portability ---
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 Plan of Treatment Reminders Order Date Submit Date Provider Last Modified By Organization Details Last Modified Time Details Appointments None recorded. Lab urinalysis , dipstick 2021 [address]22 [address], [address], [place], [address], 16:14:13 Referral None recorded. Procedures None recorded. Surgeries None recorded. Imaging None recorded. Medication Orders None recorded. Patient TargetsNo targets recorded. Patient InstructionsNo instructions recorded. Reason for Referral None Reported. Results Created Date Observation Date Name Description Value Unit Range Abnormal Flag Note LastModifiedBy Organization Detail LastModifiedTime 07/12/19 22 07/12/2021 VAGIN ITIS/ VAGIN OSIS, DNA PROBE elen sp. detection, direct probe Negati ve negati ve Not Available [facility] (Lab) [address] [place], [address], 07/13/2021 17:25:47 07/12/19 22 07/12/2021 VAGIN ITIS/ VAGIN OSIS, DNA PROBE gardnerella vag. detection, direct probe Positi ve negati ve abnormal Not Available [facility] (Lab) [address] [place], [address], 07/13/2021 17:25:47 07/12/19 22 07/12/2021 VAGIN ITIS/ VAGIN OSIS, DNA PROBE trichomonas vag. detection, direct probe Negati ve negati ve Not Available [facility] (Lab) [address], [place], [address], 07/13/2021 17:25:47 07/12/19 22 07/12/2021 URINA LYSIS , WITH MICRO SCOPI C color, urine Straw colorl ess, light yellow , yellow , dark yellow , straw Not Available [facility] (Lab) [address], [place], [address], 07/13/2021 23:16:02 07/12/19 22 07/12/2021 URINA LYSIS , WITH MICRO SCOPI C clarity, urine Clear Not Available [facility] (Lab) [address], [place], [address], 07/13/2021 23:16:02 07/12/19 22 07/12/2021 URINA LYSIS , WITH MICRO SCOPI C glucose, urine Negati ve mg/dL negati ve Not Available [facility] (Lab) [address] [facility], [place], [address], 07/13/2021 23:16:02 07/12/19 22 07/12/2021 URINA LYSIS , WITH MICRO SCOPI C bilirubin, urine Negati ve mg/dL negati ve Not Available [facility] (Lab) [address] [facility], [place], [address], 07/13/2021 23:16:02 07/12/19 22 07/12/2021 URINA LYSIS , WITH MICRO SCOPI C ketones, urine Negati ve mg/dL negati ve Not Available [facility] (Lab) [address] [facility], [place], [address], 07/13/2021 23:16:02 07/12/19 22 07/12/2021 URINA LYSIS , WITH MICRO SCOPI C pH, urine 6.0 . 5.0-9. 0 Not Available [facility] (Lab) [address] [facility], [place], [address], 07/13/2021 23:16:02 07/12/19 22 07/12/2021 URINA LYSIS , WITH MICRO SCOPI C specific gravity, urine 1.005 . 1.001- 1.035 Not Available [facility] (Lab) [address] [facility], [place], [address], 07/13/2021 23:16:02 07/12/19 22 07/12/2021 URINA LYSIS , WITH MICRO SCOPI C blood, urine Negati ve negati ve Not Available [facility] (Lab) [address] [facility], [place], [address], 07/13/2021 23:16:02 07/12/19 22 07/12/2021 URINA LYSIS , WITH MICRO SCOPI C protein, UA Negati ve mg/dL negati ve Not Available [facility] (Lab) [address] [facility], [place], [address], 07/13/2021 23:16:02 07/12/19 22 07/12/2021 URINA LYSIS , WITH MICRO SCOPI C urobilinogen , urine <2.0 mg/dL <2.0 Not Available [facility] (Lab) [address] [facility], [place], [address], 07/13/2021 23:16:02 07/12/19 22 07/12/2021 URINA LYSIS , WITH MICRO SCOPI C nitrite, urine Negati ve negati ve Not Available [facility] (Lab) [address] [facility], [place], [address], 07/13/2021 23:16:02 07/12/19 22 07/12/2021 URINA LYSIS , WITH MICRO SCOPI C leukocyte esterase, urine Negati ve jp/u L negati ve Not Available [facility] (Lab) [address] [facility], [place], [address], 07/13/2021 23:16:02 07/12/19 22 07/12/2021 URINA LYSIS , WITH MICRO SCOPI C WBC, urine 0-5 /hpf none, 0-5 Not Available [facility] (Lab) [address] [facility], [place], [address], 07/13/2021 23:16:02 07/12/19 22 07/12/2021 URINA LYSIS , WITH MICRO SCOPI C RBC, urine None /hpf none, 0-2 Not Available [facility] (Lab) [address] [facility], [place], [address], 07/13/2021 23:16:02 07/12/19 22 07/12/2021 URINA LYSIS , WITH MICRO SCOPI C bacteria, urine Trace /hpf none abnormal Not Available [facility] (Lab) [address] [facility], [place], [address], 07/13/2021 23:16:02 07/12/19 22 07/12/2021 URINA LYSIS , WITH MICRO SCOPI C squamous epithelial cells, urine Few /hpf none abnormal Not Available [facility] (Lab) [address] [facility], [place], [address], 07/13/2021 23:16:02 07/12/19 22 07/12/2021 URINA LYSIS , WITH MICRO SCOPI C mucus, urine Trace /hpf none, trace, few Not Available [facility] (Lab) [address] [facility], [place], [address], 07/13/2021 23:16:02 07/12/19 22 07/12/2021 CULTU RE: URINE result report SEE RESULT S BELOW Test: Cultu re: Urine Speci men Sourc e: Urine - Clean Catch Speci men Type: Urine Speci men Date: 2021 3:31 PM Resul t Date: 2021 10:10 PM Resul t Statu s: Final resul t Abnor mal: No Resul ting Lab: [facility] [address] [facility] [address] Tel: CULTU RE ----- ----- ----- --- No growt h in 1 day (dete ction level of 10,00 0 colon ies / ml.) Not Available [facility] (Lab) [address], [place], [address], 07/13/2021 23:16:03 07/12/19 22 07/12/2021 urina lysis , dipst ick Leukocytes neg Not Available [facility] [address], [place], [address], 07/12/2021 16:13:36 07/12/19 22 07/12/2021 urina lysis , dipst ick Nitrite neg Not Available [facility], [place], [address], 07/12/2021 16:13:36 07/12/19 22 07/12/2021 urina lysis , dipst ick Urobilinogen neg Not Available [facility] [address], [place], [address], 07/12/2021 16:13:36 07/12/19 22 07/12/2021 urina lysis , dipst ick Protein neg Not Available [facility], [place], [address], 07/12/2021 16:13:36 07/12/19 22 07/12/2021 urina lysis , dipst ick pH 5 Not Available [address], [place], [address], 07/12/2021 16:13:36 07/12/19 22 07/12/2021 urina lysis , dipst ick Blood trace Not Available [address], [place], [address], 07/12/2021 16:13:36 07/12/19 22 07/12/2021 urina lysis , dipst ick Specific [place] 1.000 [facility] Available [facility] [address], [place], [address], 07/12/2021 16:13:36 07/12/19 22 07/12/2021 urina lysis , dipst ick Ketone neg Not Available [address], [place], [address], 07/12/2021 16:13:36 07/12/19 22 07/12/2021 urina lysis , dipst ick Bilirubin neg Not Available [facility] [address], [place], [address], 07/12/2021 16:13:36 07/12/19 22 07/12/2021 urina lysis , dipst ick Glucose neg Not Available [address], [place], [address], 07/12/2021 16:13:36 07/12/19 22 07/12/2021 urina lysis , dipst ick Appearance clear Not Available [facility] [address], [place], [address], 07/12/2021 16:13:36 07/12/19 22 07/12/2021 urina lysis , dipst ick Color straw Not Available [address], [place], [address], 07/12/2021 16:13:36 Result Notes None recorded. Problems Name Problem SNOMED Code Status Onset Date Resolution Date Notes Provider Name and Address Organization Details Recorded Time Acute vaginiti s 78851226 Completed 201707/09/2021 Vaginitis ;Recorded Elsewhere : No Locati on: [facility] So urce: EHR Chron ic: N Practic e ID: 0001 Bill able Time: 02:30:00 PM Esperanza motley [place] - [facility] 02/22/202 2 16:45:09 Screenin g for malignan t neoplasm of rectum Completed 201107/09/2021 Screening for malignant neoplasms of the rectum;Re corded Elsewhere : No Locati on: [facility] So urce: EHR Chron ic: N Practic e ID: 0001 Bill able Time: 09:00:00 AM Esperanza Dangelo [facility] 2 16:45:24 Mammogra phy abnormal [id number] Completed 201407/09/2021 Unspecifi ed abnormal mammogram ;Recorded Elsewhere : No Locati on: [facility] So urce: EHR Chron ic: N Practic e ID: 0001 Bill able Time: 04:38:21 PM Esperanza Dangelo [facility] 2 16:45:15 Screenin g for malignan t neoplasm of cervix Completed 201107/09/2021 Screening for malignant neoplasms of the cervix;Re corded Elsewhere : No Locati on: [facility] So urce: EHR Chron ic: N Practic e ID: 0001 Bill able Time: 09:00:00 AM Esperanza Dangelo [facility] 2 16:45:21 Speciali zed medical examinat ion Completed 201107/09/2021 Gynecolog ical Examinati on;Record ed Elsewhere : No Locati on: [facility] So urce: EHR Chron ic: N Practic e ID: 0001 Bill able Time: 09:00:00 AM Esperanza Dangelo [facility] [address] 16:45:[address] Concept Completed 201507/09/2021 Encntr for general adult medical exam w/o abnormal findings; Recorded Elsewhere : No Locati on: [facility] So urce: EHR Chron ic: N Practic e ID: 0001 Bill able Time: 05:00:00 PM Esperanza Dangelo [facility] 2 16:45:26 Postmeno pausal bleeding [id number] Completed 201807/09/2021 Postmenop ausal bleeding; Recorded Elsewhere : No Locati on: [facility] So urce: EHR Chron ic: N Practic e ID: 0001 Bill able Time: 03:45:00 PM Esperanza Dangelo [facility] 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 2 16:45:27 Leukocyt osis [id number] Completed 201407/09/2021 LEUKOCYTO SIS NOS;Recor ded Elsewhere : No Locati on: [facility] So urce: EHR Chron ic: N Practic e ID: 0001 Bill able Time: 05:45:00 PM Esperanza Dangelo [facility] 2 16:45:14 Body mass index 25-29 - overweig ht [id number] Completed 201507/09/2021 Body mass index (BMI) 27.0-27.9 , adult;Rec orded Elsewhere : No Locati on: [facility] So urce: EHR Chron ic: N Practic e ID: 0001 Bill able Time: 05:00:00 PM Esperanza Dangelo [facility] 2 16:45:12 Adult health examinat ion Completed 201107/09/2021 Routine Medical Exam;Michael rded Elsewhere : No Locati on: [facility] So urce: EHR Chron ic: N Practic e ID: 0001 Bill able Time: 09:00:00 AM Esperanza Dangelo [facility] 2 16:45:11 Acute sinusiti s [id number] Completed 201007/09/2021 Acute sinusitis , unspecifi ed;Practi ce ID: 0001 [facility] 16:45:07 Screenin g for malignan t neoplasm of colon Completed 201007/09/2021 Special screening for malignant neoplasms , colon;Pra ctice ID: 0001 [facility] 16:45:22 Microsco pic hematuri a [id number] Completed 201407/09/2021 MICROSCOP IC HEMATURIA ;Practice ID: 0001 [facility] 16:45:17 Problem Notes None recorded. Procedures Surgical History Date Name Laterality Status Provider Name and Address Organization Details Recorded Time 10/24/19 15 Date of Last Mammogram completed [facility] 07/12/2021 13:55:20 05/18/19 15 lumpectomy of breast completed [facility] 07/12/2021 13:53:27 05/18/18 90 Total Hysterectomy completed [facility] 07/12/2021 13:53:15 Breast Surgery completed [facility] 07/12/2021 15:42:22 Imaging Results None recorded. Procedure Notes None recorded. Medical Equipment None Reported. Allergies No known drug allergies Medications Name Sig Start Date Stop Date Status Note LastModified by Organization Details LastModified Time furosemid e 10 mg/mL injection solution inject 2 millilit er by intraven ous route every day slowly 07/12 completed Prescrib ed Elsewher e: Yes Loca tion: Real lynch [facility] odify By: chhaya bradshaw DateTime : 03/31/20 13 08:30:00 AM Not Available Not Available Not Available fluconazo le 150 mg tablet take 1 tablet by oral route every other day 07/09 completed Prescrib ed Elsewher e: No Locat ion: Real lynch [facility] odify By: [email or web address] judge DateTime : 11/02/19 04:34:22 PM Not Available Not Available Not Available fluconazo le 200 mg tablet Take 1 tablet every day by oral route for 1 day. 2021 active Not Available Not Available Not Avai lable lisinopri l 20 mg tablet take 1 tablet by oral route every day active Prescrib ed Elsewher e: Yes Loca tion: Real lynch [facility] odify By: onel judge DateTime : 10/31/19 12 09:00:00 AM Not Available Not Available Not Available Metrogel Vaginal 0.75 % (37.5 mg/5 gram) insert 1 applicat orful by vaginal route every day at bedtime for 5 nights 07/09 completed Prescrib ed Elsewher e: No Locat ion: Real lynch [facility] odify By: wmhbrenda judge DateTime : 11/02/19 04:34:22 PM Not Available Not Available Not Available Multiple Vitamin tablet take 1 tablet by oral route every day with food active Prescrib ed Elsewher e: Yes Loca tion: Real lynch [facility] odify By: onel judge DateTime : 10/31/19 12 09:00:00 AM Not Available Not Available Not Available Ferronate 325 mg (37 mg iron) tablet 03/31 completed Prescrib ed Elsewher e: Yes Loca tion: Real lynch [facility] odify By: chhaya bradshaw DateTime : 10/31/19 12 09:00:00 AM Not Available Not Available Not Available aspirin 81 mg chewable tablet chew 1 tablet by oral route every day active Prescrib ed Elsewher e: Yes Loca tion: Real lynch [facility] odify By: onel judge DateTime : 10/31/19 12 09:00:00 AM Not Available Not Available Not Available Arimidex 1 mg tablet take 1 tablet by oral route every day 07/12 completed Prescrib ed Elsewher e: Yes Loca tion: Real lynch [facility] odify By: marilee paris DateTime : 03/10/20 16 05:00:00 PM Not Available Not Available Not Available Lexapro 10 mg tablet take 1 tablet by oral route every day active Prescrib ed Elsewher e: Yes Loca tion: Real lynch [facility] odify By: onel judge DateTime : 10/31/19 12 09:00:00 AM Not Available Not Available Not Available Crestor 10 mg tablet take 1 tablet by oral route every day active Prescrib ed Elsewher e: Yes [facility] By: onel judge DateTime : 10/31/19 12 09:00:00 AM Not Available Not Available Not Available Calcio Matheus 500 mg tablet active Prescrib ed Elsewher e: Yes Loca tion: [facility] odify By: onel judge DateTime : 10/31/19 12 09:00:00 AM Not Available Not Available Not Available Lipofen 50 mg capsule take 1 capsule by oral route every day with a meal 10/27 completed Prescrib ed Elsewher e: Yes [facility]oca [facility] By: marilee Encoundesire r DateTime : 03/31/20 13 08:30:00 AM Not Available Not Available Not Available Atelvia 35 mg tablet,de layed release take 1 tablet by oral route every week in the morning immediat luke followin g breakfas t with at least 4 oz of plain water 03/10 completed Prescrib ed Elsewher e: No [facility] By: marilee Encounte r DateTime : 12/13/19 14 12:45:30 PM Not Available Not Available Not Available Solosec [address] granules in packet 1 pack. Mix with pudding or applesau ce and eat within 30 minutes 2021 active Not Available Not Available Not Avai lable Vitals Date Recorded Systolic And Diastolic Provider Name and Address Organization Details Last Updated DateTime 07/12/2021 126/82 mm[Hg] Estelle Jones, THALIA-BC [address], [place], [address], [place] - [facility] 07/12/2021 15:57:03 Date Recorded Body height Body mass index (BMI) Body weight Provider Name and Address Organization Details Last Updated DateTime 07/12/2021 149.86 cm 30.3 kg/m2 58155.86 g Esperanza Dangelo [facility] 07/12/2021 15:41:51 Social History Question Answer Notes LastModified by Organizat ion Details LastModified Time Tobacco Smoking Status Never Smoker Esperanza Dangelo [facility] 07/12/2021 15:42:14 Do You Have An Advance Directive? No Information n ot available 07/12/2021 Are You Blind Or Do You Have Difficulty Seeing? No Information n ot available 07/09/2021 What Is Your Level Of Caffeine Consumption? Occasional Information not available 07/09/2021 In The 14 Days Before Symptom Onset, Have You Had Close Contact With A Laboratory-confirm ed COVID-19 While That Case Was Ill? No Information n ot available 07/12/2021 In The 14 Days Before Symptom Onset, Have You Had Close Contact With A Person Who Is Under Investigation For COVID-19 While That Person Was Ill? No Information not available 07/12/2021 Have You Been To An Area Known To Be High Risk For COVID-19? No Information not available 07/12/2021 Are You Deaf Or Do You Have Serious Difficulty Hearing? No Information not available 07/09/2021 What Type Of Diet Are You Following? REGULAR Information n ot available 07/09/2021 What Is The Highest Grade Or Level Of School You Have Completed Or The Highest Degree You Have Received? [id number] Information not available 07/12/2021 Are There Any Guns Present In Your Home? No Information not available 07/12/2021 Do You Use Your Seat Belt Or Car Seat Routinely? Yes Information not available 07/09/2021 Do You Have Smoke And Carbon Monoxide Detectors In Your Home? Yes Information not available 07/09/2021 How Much Tobacco Do You Smoke? No Information not available 07/12/2021 Do You Use Sunscreen Routinely? Yes Information not available 07/09/2021 Do You Have Difficulty Walking Or Climbing Stairs? No Information not available 07/12/2021 Sex: Unknown Functional Status Question Answer Note LastModified by Organizat ion Details LastModified Time Do you use any illicit or recreational drugs? No Information not available 07/09/2021 What is your level of alcohol consumption? None Information not available 07/09/2021 Are you able to walk? YESWOREST Information not available 07/09/2021 Are you able to care for yourself? Yes Information n ot available 07/12/2021 What is your occupation? Retired Information not available 07/12/2021 Do you have difficulty dressing or bathing? No Information not available 07/12/2021 What is your exercise level? Moderate Information not available 07/12/2021 Mental Status Question Answer Note LastModified by Organization D etails LastModified Time Do you feel stressed (tense, restless, nervous, or anxious, or unable to sleep at night)? [id number] Information not available 07/12/2021 Family History Relationship Description Onset Age of this Age Resolved Age Notes LastModified by Organization Details LastModified Time Brother Malignant tumor of colon Not available 2021 16:45:56 Mother Hypertensive disorder Not available 2021 16:46:02 Paternal Grandfather Diabetes mellitus Not available 2021 16:46:10 Sister Asthma Not available 16:46:17 Sister Malignant tumor of breast Not available 2021 16:46:26 Medical History Condition Response Breast Cancer Y High Cholesterol Y Hypertension Y Gynecological History Statement/Question Response Date of Last Pap Smear Date of Last Mammogram 10/23/2014 LMP Unknown Obstetrics History GPAL:G 0 P 0 0 0 0 Past Encounters Encounter ID Performer Location Encounter Start Date Encounter Closed Date Diagnosis/Indication Diagnosis SNOMED-CT Code Diagnosis ICD10 Code Diagnosis Note [id number] Estelle Jones [place] [address] [address] 07/12/2021 15:27:24 07/12/2021 16:44:59 Abnormal uterine bleeding [id number] 9100 N93.9 Her exam today is WNL.No evidence of PMB or other contributi ng factors that could cause a streak of pink on her Always peripad that she wears daily for DIDI.Michael lynch she has some white d/c on exam & some complaints of occasional vaginal itching we sent a vaginitis swab. I have recommende d she change from Always brand pads to an all cotton, unscented products, try to avoid wearing pads during bedtime hours; consider special underwear that is specially designed for urinary incontinen ce (ex: Knix, Shethinx). Hx of breast cancer & Hx of full Hysterecto my We will monitor for now & update her on her test results; then decide if further steps in plan of care are required. Understand ing verbalized . Time spent in visit is a total of 15 mins with at least 50% of visit consisting of counseling and review of plan of care.Addit ional precaution marquise measures were taken to minimize potential exposure to the Covid-19 virus during this patient s visit, including available hand administrative professional upon arrive, temperatur e check and being asked a series of screening questions. All staff wore face coverings during this encounter, as well as provided additional cleaning and sanitizing of all surfaces, including countertop s, pens, chairs, door handles, light switches, etc, prior to and following the patient s visit. Urinary symptoms [id number] R39.9 Urine sent for evaluation . Health Concerns Section Related Observation LastModified by Organization Detai ls LastModified Time None Recorded Concern Status LastModified by Organization Details LastModified Time None Recorded Advance Directives Directive N: Payers Insurance Date Sequence Insurance Name Policy Number Policy Tirado Covered Member ID Tirado Member ID Guarantor Name 08/29/2021 2 [employer] (MEDICARE SUPPLEMENT) Gaby A Ayran [id number] Gaby A Ayran 07/12/2021 1 [place] Ana Chavez Ayran [id number] Gaby Lopez Notes Date Note Type Note Provider Name and Address Organization Details Recorded Time 07/12/2021 text/html Beer - Abnormal BleedingReported bypatient.Notes:Here today for concerns of 1 streak of brown to pink tented area on her genny pad (Always brand) that she wears daily for DIDI with laugh/cough/sneeze.Th is happened almost 10 days ago.She voices she had no other sx's and randomly found this area of concern on her peripad when she went to void.She took a picture (white pad with inch long streak approx 1/2 inch wide bownish coloring mixed with opaque d/c on picture--Coloring was very vague and light). Hx of Hemorrhoids--but no reports of issues in this area. BM's regular.Neg urinary sx's other than DIDI for which she wears a pad. No significant loss of urine.Not SASome vaginal itching on occasion but this is a very random occurrence.Neg Pelvic, abd, flank pain. Estelle Jones, VAIBHAV-BC [address], [place], [address], [place] - [facility] 07/12/2021 16:33:46 OBGyn Episode No OBEpisode recorded.
--- OUTSIDE RECORDS SUMMARY | 2024-11-19 03:12 | XMS_ITS | Continuity of Care Document ---
Author Organization [facility] Address [address] [place] [address] Phone Care Team Providers Care Marketing Production Coordinator Name Role Phone Rodolfo Chávez Unavailable Unavailable Procedures Procedure Date Office/outpatient Visit, Est Eye Exam & Treatment Refraction Eye Exam & Treatment Refraction Advance Directives Directive Yes / No Effective Date File Name No Information Encounters Encounter Description Practice Location Reason(s) For Visit Diagnoses Date Provider Providers Copied on Encounter Office/outpat ient Visit, Est [facility], [address] [place] [address] [address], [place], [place], [id number], [place] tel:[phone] [facility] No Information Mar-0 9-201 0 Saira Reynolds. [address] [facility] [address], [place], [facility], [place]. tel:[phone] [facility], [id number] [place] [address] [address], [place], [place], [address], [place] tel:[phone] [facility] No Information Dec-2 9-200 9 Sanderson OD Ray. [address] [facility] [address] , [address], [place], [facility], [place]. tel:[phone] [facility], [address], [place], [place], [address], [place] tel:[phone] [facility] No Information Dec-2 6-200 7 Sanderson OD Ray. [address] [facility] , [address], [place], [address], [place]. tel:[phone] Family History Family Member Type Diagnosis Age [...]
--- OUTSIDE RECORDS SUMMARY | 2024-11-19 03:13 | XMS_ITS | Patient Health Record ---
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 Name Role Phone Brian Ibarar Primary Care Provider UnavailJann Humphries Unavailable [phone] Tom Jamison Unavailable Unavailable Solomon Aviles Unavailable [phone] Allergies Allergen (clinical drug ingredient) Drug/Non Drug Allergy documented on EMR Reaction Allergy Type Onset Date Status meperidine Demerol other reaction Drug Allergy A ctive Reason For Referral No Information Medications Medication SIG (Take, Route, Frequency, Duration) Notes Start Date End Date Status Nasal Washes as directed intranasally Active SIT (TRADITIONAL) variable per schedule SC per schedule; Duration: 999 days Active ACTHIB (HIB) - 0.5 mL intramuscularly once; Duration: 1 dose(s) Active EPIPEN 2-LIT 0.3 mg as directed intramuscularly once; Duration: 30 days Active Furosemide 20 MG 1 tab(s) orally once a day; Duration: 30 day(s) Not-Taking PATADAY ONCE DAILY RELIEF 0.2% 1 gtt in each affected eye once a day; Duration: 10 days Active ZYRTEC 10 mg 1 tab(s) orally once a day Active OLOPATADINE NASAL 665 MCG/INH 2 SPRAY(S) INTRANASALLY 2 TIMES A DAY; Duration: 30 DAYS *Please review for potential replacement for e-prescription and drug interaction check* Not-Taking OLOPATADINE NASAL 665 mcg/inh 2 spray(s) intranasally 2 times a day; Duration: 30 days Active NASAL WASHES N/A DIRECTED INTRANASALLY NEEDED; Duration: 30 *Please review for potential replacement for e-prescription and drug interaction check* Not-Taking FLONASE 50 mcg/inh 1 spray(s) in each nostril once a day Active MONTELUKAST 10 mg 1 tab(s) orally once a day Active ZyrTEC Allergy 10 MG 1 tab(s) orally once a day Active Flonase Allergy Relief 50 MCG/ACT 1 spray(s) in each nostril once a day Active Losartan Potassium 25 MG 1 tab(s) orally once a day; Duration: 30 day(s) Not-Taking ALPRAZolam 0.25 MG 1 tablet Orally Twic e a day Active Tiadylt ER 240 MG/24 HOURS 1 CAP(S) ORALLY ONCE A DAY; Duration: 30 DAY(S) *Please review and pick correct strength-formula tion from 5k Fans options. If intended option is not shown, discontinue and re-order from Quick Search* Active Rosuvastatin Calcium 10 MG 1 tab(s) orally once a day; Duration: 30 day(s) Active Vitamin D (Ergocalciferol) 1.25 MG (67305 UT) 1 cap(s) orally once a week; Duration: 30 day(s) Active hydrALAZINE HCl 25 MG 1 tablet with food Orally Twice a day Active Valsartan 320 MG TAKE 1 TABLET BY MOUTH DAILY Oral; Duration: 30 Days Active EpiPen 2-Lit 0.3 mg as directed intramuscularly once; Duration: 30 days Active Montelukast Sodium 10 MG 1 tab(s) orally once a day Not-Taking Metoprolol Succinate ER 25 MG 1 tab(s) orally once a day; Duration: 30 day(s) Active Social History Tobacco Use: Social History Observation Description Date Details (start date - stop date) Never Smoker NA - NA Smoking Smart Form: Question Answer Notes Are you a: never smoker Tobacco Control (Standard) Question Answer Notes Tobacco use: Nonsmoker Problems Problem Type SNOMED Code ICD Code Onset Dates Problem Status W/U Status Risk Notes Problem Chronic allergic conjunctivitis (30635969) Other chronic allergic conjunctivitis (H10.45) Active confirmed Problem Allergic rhinitis caused by pollen (disorder) (84207796) Allergic rhinitis due to pollen (J30.1) Active confirmed Problem Allergic rhinitis caused by animal hair and dander (365773622372965) Allergic rhinitis due to animal (cat) (dog) hair and dander (J30.81) Active confirmed Problem Allergic rhinitis (37322744) Other allergic rhinitis (J30.89) Active confirmed Problem Allergic rhinitis caused by pollen (disorder) (27062064) Allergic rhinitis due to pollen (J30.1) Active confirmed Problem Allergic rhinitis caused by animal hair and dander (866079289592975) Allergic rhinitis due to animal (cat) (dog) hair and dander (J30.81) Active confirmed Problem Allergic rhinitis (29735339) Other allergic rhinitis (J30.89) Active confirmed Problem Chronic allergic conjunctivitis (26215374) Other chronic allergic conjunctivitis (H10.45) Active confirmed Problem Chronic sinusitis (45926616) Chronic sinusitis, unspecified (J32.9) Active confirmed Problem Essential hypertension (58918696) Essential (primary) hypertension (I10) Active confirmed Vital Signs Blood pressure diastolic 75 mm Hg 02/29/2024 Oximetry 99 % 02/29/2024 Height 59 in 02/29/2024 Blood pressure systolic 144 mm Hg 02/29/2024 Weight 131 lbs 02/29/2024 BMI 26.46 kg/m2 02/29/2024 Encounters Encounter Location Date Provider Diagnosis [facility] [address] [place] [id number] 11/26/2023 Solomon Aviles Allergic rhinitis du e to pollen J30.1 ; Allergic rhinitis due to animal (cat) (dog) hair and dander J30.81 ; Other allergic rhinitis J30.89 and Other chronic allergic conjunctivitis H10.45 [facility] [address] [place] [phone] 12/03/2023 Solomon Aviles Allergic rhinitis du e to pollen J30.1 ; Allergic rhinitis due to animal (cat) (dog) hair and dander J30.81 ; Other allergic rhinitis J30.89 and Other chronic allergic conjunctivitis H10.[address] [address] 12/09/2023 Solomon Aviles Allergic rhinitis du e to pollen J30.1 ; Allergic rhinitis due to animal (cat) (dog) hair and dander J30.81 ; Other allergic rhinitis J30.89 and Other chronic allergic conjunctivitis H10.45 [facility] [address] [place] [address] [employer] [address] [address] 12/17/2023 Solomon Aviles Allergic rhinitis du e to pollen J30.1 ; Allergic rhinitis due to animal (cat) (dog) hair and dander J30.81 ; Other allergic rhinitis J30.89 and Other chronic allergic conjunctivitis H10.45 [facility] [address] [place] [address] [employer] [address] [address] 12/24/2023 Solomon Aviles Allergic rhinitis du e to pollen J30.1 ; Allergic rhinitis due to animal (cat) (dog) hair and dander J30.81 ; Other allergic rhinitis J30.89 and Other chronic allergic conjunctivitis H10.45 [facility] [address] [place] [address] [employer] [address] [address] 01/07/2024 Solomon Aviles Allergic rhinitis du e to pollen J30.1 ; Allergic rhinitis due to animal (cat) (dog) hair and dander J30.81 ; Other allergic rhinitis J30.89 and Other chronic allergic conjunctivitis H10.45 [facility] [address] [place] [address] [employer] [address] [address] 01/14/2024 Solomon Aviles Allergic rhinitis du e to pollen J30.1 ; Allergic rhinitis due to animal (cat) (dog) hair and dander J30.81 ; Other allergic rhinitis J30.89 and Other chronic allergic conjunctivitis H10.45 [facility] [address] [place] [phone] 01/21/2024 Solomon Stefan Allergic rhinitis du e to pollen J30.1 ; Allergic rhinitis due to animal (cat) (dog) hair and dander J30.81 ; Other allergic rhinitis J30.89 and Other chronic allergic conjunctivitis H10.45 [facility] [address] [place] [address] [employer] [address] [address] 02/11/2024 Solomon Stefan Allergic rhinitis du e to pollen J30.1 ; Allergic rhinitis due to animal (cat) (dog) hair and dander J30.81 ; Other allergic rhinitis J30.89 and Other chronic allergic conjunctivitis H10.[address] [address] 02/18/2024 Solomon Aviles Allergic rhinitis du e to pollen J30.1 ; Allergic rhinitis due to animal (cat) (dog) hair and dander J30.81 ; Other allergic rhinitis J30.89 and Other chronic allergic conjunctivitis H10.[address] [address] 02/29/2024 Jann Berg Allergic rhinitis du e to pollen J30.1 ; Allergic rhinitis due to animal (cat) (dog) hair and dander J30.81 ; Other allergic rhinitis J30.89 ; Other chronic allergic conjunctivitis H10.45 ; Chronic sinusitis, unspecified J32.9 and Essential (primary) hypertension I10 [address] [address] 03/10/2024 Jann Berg Assessments Encounter Date Diagnosis (ICD Code) Assessment Notes Treatment Notes Treatment Clinical Notes Section Notes 11/26/2023 Allergic rhinitis due to pollen (ICD-10 - J30.1) 12/03/2023 Allergic rhinitis due to pollen (ICD-10 - J30.1) 12/09/2023 Allergic rhinitis due to pollen (ICD-10 - J30.1) 12/17/2023 Allergic rhinitis due to pollen (ICD-10 - J30.1) 12/24/2023 Allergic rhinitis due to pollen (ICD-10 - J30.1) 01/07/2024 Allergic rhinitis due to pollen (ICD-10 - J30.1) 01/14/2024 Allergic rhinitis due to pollen (ICD-10 - J30.1) 01/21/2024 Allergic rhinitis due to pollen (ICD-10 - J30.1) 02/11/2024 Allergic rhinitis due to pollen (ICD-10 - J30.1) 02/18/2024 Allergic rhinitis due to pollen (ICD-10 - J30.1) 02/29/2024 Allergic rhinitis due to pollen (ICD-10 - J30.1) Ana clearly suffers from atopic disease based upon our skin testing and clinical history. Accordingly, we have introduced a new, aggressive medication regimen, discussed nasal washes and allergy-specific avoidance measures. -Continue medications as listed above. -She continues on SCIT via the Traditional schedule. -Held SCIT today due to no premedicating. WIll return later this week for dosing. -AIE on hand. Patient was instructed that epinephrine needs to be carried to each immunotherapy visit and should be carried 2 hrs after dosing. -Follow-up later this week for SCIT and 3-4 months for E&M - set for sinus surgery with ENT next month 02/29/2024 Allergic rhinitis due to animal (cat) (dog) hair and dander (ICD-10 - J30.81) Follow allergen avoidance, meds and continue SCIT as an adjunctive treatment to current regimen 02/29/2024 Other allergic rhinitis (ICD-10 - J30.89) Follow allergen avoidance, meds and continue SCIT as an adjunctive treatment to current regimen 02/18/2024 Allergic rhinitis due to animal (cat) (dog) hair and dander (ICD-10 - J30.81) 02/11/2024 Allergic rhinitis due to animal (cat) (dog) hair and dander (ICD-10 - J30.81) 01/21/2024 Allergic rhinitis due to animal (cat) (dog) hair and dander (ICD-10 - J30.81) 01/14/2024 Allergic rhinitis due to animal (cat) (dog) hair and dander (ICD-10 - J30.81) 01/07/2024 Allergic rhinitis due to animal (cat) (dog) hair and dander (ICD-10 - J30.81) 12/24/2023 Allergic rhinitis due to animal (cat) (dog) hair and dander (ICD-10 - J30.81) 12/17/2023 Allergic rhinitis due to animal (cat) (dog) hair and dander (ICD-10 - J30.81) 12/09/2023 Allergic rhinitis due to animal (cat) (dog) hair and dander (ICD-10 - J30.81) 12/03/2023 Allergic rhinitis due to animal (cat) (dog) hair and dander (ICD-10 - J30.81) 11/26/2023 Allergic rhinitis due to animal (cat) (dog) hair and dander (ICD-10 - J30.81) 11/26/2023 Other allergic rhinitis (ICD-10 - J30.89) 12/03/2023 Other allergic rhinitis (ICD-10 - J30.89) 12/09/2023 Other allergic rhinitis (ICD-10 - J30.89) 12/17/2023 Other allergic rhinitis (ICD-10 - J30.89) 12/24/2023 Other allergic rhinitis (ICD-10 - J30.89) 01/07/2024 Other allergic rhinitis (ICD-10 - J30.89) 01/14/2024 Other allergic rhinitis (ICD-10 - J30.89) 01/21/2024 Other allergic rhinitis (ICD-10 - J30.89) 02/11/2024 Other allergic rhinitis (ICD-10 - J30.89) 02/18/2024 Other allergic rhinitis (ICD-10 - J30.89) 02/29/2024 Other chronic allergic conjunctivitis (ICD-10 - H10.45) Given ocular signs and symptoms I encouraged allergy avoidance measures and meds as above. If symptoms persist, consider adding additional medications including intraocular antihistamine/mast cell stabilizer, PRN and continue SCIT as an adjunctive measure 02/29/2024 Chronic sinusitis, unspecified (ICD-10 - J32.9) Ana has a history of recurrent sinus infections, generally treated with abx Q3 months. -PIDD workup previously sent showing inadequate protection to HIB. Would recommended obtaining with plan to recheck titer 1 month after obtain. Per Ana, her PCP does not offer Hib vaccinations. Again recommended she obtain at our office or check with local health department. She is going to call insurance to determine OOP costs. Currently set to undergo sinus surgergy with ENT next month 11/26/2023 Other chronic allergic conjunctivitis (ICD-10 - H10.45) 02/18/2024 Other chronic allergic conjunctivitis (ICD-10 - H10.45) 02/11/2024 Other chronic allergic conjunctivitis (ICD-10 - H10.45) 01/21/2024 Other chronic allergic conjunctivitis (ICD-10 - H10.45) 01/14/2024 Other chronic allergic conjunctivitis (ICD-10 - H10.45) 01/07/2024 Other chronic allergic conjunctivitis (ICD-10 - H10.45) 12/24/2023 Other chronic allergic conjunctivitis (ICD-10 - H10.45) 12/17/2023 Other chronic allergic conjunctivitis (ICD-10 - H10.45) 12/09/2023 Other chronic allergic conjunctivitis (ICD-10 - H10.45) 12/03/2023 Other chronic allergic conjunctivitis (ICD-10 - H10.45) 02/29/2024 Essential (primary) hypertension (ICD-10 - I10) -Patient is on beta dante at night. Continue holding dosing until 2 hours after SCIT. She is noting mild lightheadedness when holding BB prior to SCIT dosing. Advised f/u with PCP and would consider switching from BB to different class given relative contraindicationin the setting of anaphylaxis 02/29/2024 Other Plan Of Treatment Pending Test Test Name Order Date -Immunoglobulins A/G/M, Qn, Ser 02/28/20 22 -Vitamin D, 25-Hydroxy 02/27/2022 -Haemophilus influenzae B IgG 02/27/2022 -Tetanus/Diphtheria Ab 02/27/2022 -Respiratory Allergens w/Total IgE Area 8 02/27/2022 -Pneumococcal Ab (23 Serotype) 2 Insurance Providers Payer Name Payer Address Payer Phone Subscriber Number Group Number Insured Name Patient Relationship to Insured Coverage Start Date Coverage End Date [employer] (Medicare) Attention Claims [address] [place] [address] [id number] Ana Lopez Self - patient is the insured [facility] [address] [place] [address] [phone] [id number] Ana Lopez Self - patient is the insured Medical (General) History Medical History History ICD Code Stage 1 breast cancer in remission Hypertension Sleep Apnea with CPAP Cholesterol Surgical History Surgery Date(Month/Year) kidney stone Histerectomy
[2024-11-19 03:17] VITALS: BP 176/88; PULSE 93; RESP 20; TEMP 36.4; O2SAT 98
[2024-11-19 03:20] VITALS: PULSE 88
--- NOTE | 2024-11-19 03:20 | ECG_ITS ---
Test Date: 2024-11-19 03:24:06 Measurements Intervals [place] Rate: 89 P: 29 VA: 162 QRS: -9 QRSD: 72 T: -1 QT: 360 QTc: 438 Interpretive Statements SINUS RHYTHM MINIMAL VOLTAGE CRITERIA FOR LVH, CONSIDER NORMAL VARIANT [MEETS CRITERIA IN ONE OF: R(aVL), S(V1), R(V5), R(V5/V6)+S(V1)] MODERATE T-WAVE ABNORMALITY, CONSIDER ANTERIOR ISCHEMIA [-0.1+ mV T-WAVE IN V3/V4] Compared to ECG 05/07/2024 22:11:21 No change Electronically Signed On 11-19-2024 14:03:43 CDT by Ty Aponte M.D.
--- NOTE | 2024-11-19 03:27 | ED.GENADULT ---
HPI - General Adult General Chief complaint: Unspecified Stated complaint: high blood pressure Time Seen by Provider: 11/19/24 03:20 History of Present Illness HPI narrative: 74-year-old female presenting to the emergency department for evaluation of a headache and elevated blood pressure readings. She has a history of hypertension on multiple antihypertensive regimens with multiple changes in the last few months with her doctors. She has been seen by Cardiology previously with normal echocardiogram and prescribed metoprolol at that time for nonsustained runs of SVT. She presents today deangelo she wishes not feeling well at home and described having headache as well as feeling feverish. Both of which have resolved after taking 2 baby aspirin at home. She presents today because her blood pressures were high when she was taking them at home and there were 200 systolic. She has been in this range before multiple times. Previously on clonidine but no longer taking this medication either. Endorses taking her medications as prescribed. No present headache, vision changes, nausea, vomiting, chest pain, shortness a breath, weakness or fatigue. She was otherwise in her normal state of health. Her does not state that she was eating lots of heavily salted foods throughout the evening and states that that does trigger her blood pressure being elevated. Patient also endorses feeling very anxious and took alprazolam before she arrived to the ER. Related Data Home Medications ?Medication ?Instructions ?Recorded ?Confirmed ?Last Taken ?Type aspirin 81 mg tablet,delayed 81 mg PO DAILY 10/09/21 10/27/24 Unknown History release (Adult Low Dose Aspirin) calcium 315 mg (as 1 tablet PO DAILY 10/09/21 10/27/24 Unknown History citrate)-vitamin D3 6.25 mcg (250 unit) tablet (Citracal + Vitamin D Maximum) [id number]-[id number] 8 mg-folic 400 1 tablet PO DAILY 10/09/21 10/27/24 Unknown History mcg-K 50 mcg-lutein 300 mcg tablet (Centrum Silver Women) fluticasone propionate 50 1 spray intranasal DAILY 05/13/22 10/27/24 Unknown History mcg/actuation nasal spray,suspension olopatadine 0.6 % nasal spray 2 spray intranasal BID 01/05/23 10/27/24 Unknown History magnesium citrate 100 mg tablet 100 mg PO DAILY 01/25/24 10/27/24 Unknown History mecobalamin (vitamin B12) 1,000 1,000 mcg PO DAILY 01/25/24 10/27/24 Unknown History mcg chewable tablet furosemide 20 mg tablet 10 mg PO QAM 10/27/24 10/27/24 Unknown History Allergies Allergy/AdvReac Type Severity Reaction Status Date / Time meperidine Allergy Mild Hives Verified 10/27/24 08:25 niacin Allergy Mild Hives Verified 10/27/24 08:25 sertraline AdvReac Intermediate facial Verified 10/27/24 08:25 twitching PMFSH Past Medical History Medical History (Updated 11/19/24 @ 04:14 by Brandon Long MD) Heart palpitations BMI 26.0-26.9,adult History of vaginal delivery Obstructive sleep apnea Breast cancer Hyperlipidemia Anxiety Hypertension Surgical History Surgical History History of laparoscopy History of hysterectomy History of lumpectomy of both breasts Family History Family History Sibling Colon cancer Carcinoma of colon Father No problems noted. Mother No problems noted. Other Breast cancer Diabetes mellitus Hypertension Social History Social History Social History: never smoker Smoking status: Never smoker Second hand tobacco smoke exposure: No Alcohol intake: never Substance use: never Substance use type: does not use Do You Feel Safe in your Home?: Yes Lack of Transportation: No Lack of Food: Never True Current Housing: I Have Housing Concerned About Future Housing: No Difficulty Paying Gas/Electric Bills: Decline to Answer Difficulty Paying for Meds: Decline to Answer Currently Unemployed: No Education: Bachelor's Degree Difficulty w/ Childcare or Family Care: No Living arrangements: with family Occupation/Education: retired 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 Gender identity (if verbalized by the patient): Female Sexual Orientation (if Verbalized by the Patient): Straight or Heterosexual Spiritual care concerns: No Agree to blood products: Yes Course Vital Signs Vital signs: Vital Signs Temperature 36.4 C 11/19/24 03:17 Pulse Rate 93 11/19/24 03:17 Respiratory Rate 20 11/19/24 03:17 Blood Pressure 176/88 H 11/19/24 03:17 Pulse Oximetry 98 11/19/24 03:17 Oxygen Delivery Room Air 11/19/24 03:17 Temperature 36.4 C 11/19/24 03:17 Pulse Rate 88 11/19/24 03:20 Respiratory Rate 20 11/19/24 03:17 Blood Pressure 146/68 H 11/19/24 03:37 Pulse Oximetry 98 11/19/24 03:17 Oxygen Delivery Room Air 11/19/24 03:17 Medical Decision Making MDM Narrative Medical decision making narrative: 74-year-old female presenting to the emergency department for evaluation of a headache and elevated blood pressure readings. She has a history of hypertension on multiple antihypertensive regimens with multiple changes in the last few months with her doctors. She has been seen by Cardiology previously with normal echocardiogram and prescribed metoprolol at that time for nonsustained runs of SVT. She presents today deangelo she wishes not feeling well at home and described having headache as well as feeling feverish. Both of which have resolved after taking 2 baby aspirin at home. She presents today because her blood pressures were high when she was taking them at home and there were 200 systolic. She has been in this range before multiple times. Previously on clonidine but no longer taking this medication either. Endorses taking her medications as prescribed. No present headache, vision changes, nausea, vomiting, chest pain, shortness a breath, weakness or fatigue. She was otherwise in her normal state of health. Her does not state that she was eating lots of heavily salted foods throughout the evening and states that that does trigger her blood pressure being elevated. Patient also endorses feeling very anxious and took alprazolam before she arrived to the ER. Patient is in no acute distress, pleasant calm and cooperative during examination with strong symmetric pulses, clear breath sounds, unremarkable neurological assessment awake alert oriented. No focal neurological deficits appreciated. Mildly hypertensive with a blood pressure 176/88. No tachycardia fever, hypoxia. Patient is asymptomatic at this time after taking aspirin at home. Blood work and EKG as well as a chest x-ray obtained but given lack of symptoms and improvement in blood pressure without taking any medications aside from alprazolam this could be anxiety mediated versus electrolyte disturbances verses dehydration versus potential less likely infectious causes. Patient's blood pressure came down without any interventions aside from her own xanax priro to coming in, currently 146/68 and when she was re-evaluated it was stable at 134/63 and her symptoms have resolved. She is safe and stable for discharge home at this time and her workup was unremarkable and unrevealing. She will follow-up with regular primary care provider about her ER visit and given return precautions. Medical Records Medical records reviewed: Yes I reviewed the external patient's medical records. Vital Signs Vital Signs: Vital Signs Temperature 36.4 C 11/19/24 03:17 Pulse Rate 93 11/19/24 03:17 Respiratory Rate 20 11/19/24 03:17 Blood Pressure 176/88 H 11/19/24 03:17 Pulse Oximetry 98 11/19/24 03:17 Oxygen Delivery Room Air 11/19/24 03:17 Temperature 36.4 C 11/19/24 03:17 Pulse Rate 88 11/19/24 03:20 Respiratory Rate 20 11/19/24 03:17 Blood Pressure 146/68 H 11/19/24 03:37 Pulse Oximetry 98 11/19/24 03:17 Oxygen Delivery Room Air 11/19/24 03:17 Lab Data Lab results reviewed: Yes I reviewed the patient's lab results. 11/19/24 03:51 11/19/24 03:51 Labs: Lab Results 11/19/24 Range/Units 03:51 WBC 7.5 (4.5-10.0) K/mm3 RBC 4.55 (4.2-5.4) M/mm3 Hgb 14.4 (12.0-15.0) g/dL Hct 44.8 (37.0-47.0) % MCV 98.5 (80-100) fl MCH 31.6 (26-34) pg MCHC 32.1 (32-36) g/dl RDW 12.7 (11.5-14.5) % Plt Count 220 (150-375) k/mm3 MPV 9.3 (7.4-10.4) fl Immature Gran % (Auto) 0.3 (0-0.5) % Neut % (Auto) 49.9 (45.5-73.1) % Lymph % (Auto) 37.8 (18.3-44.2) % Winn % (Auto) 9.4 H (2.6-8.5) % Eos % (Auto) 2.1 (0-4.4) % Baso % (Auto) 0.5 (0.2-1.2) % Lymph # (Auto) 2.85 (0.9-3.2) K/mm3 Winn # (Auto) 0.7 H (0.1-0.6) K/mm3 Eos # (Auto) 0.2 (0-0.3) K/mm3 Baso # (Auto) 0.0 (0.0-0.1) K/mm3 Abs Immat Gran (auto) 0.02 (0.00-0.031) K/mm3 Absolute Neuts (auto) 3.8 (1.3-6.7) K/mm3 Absolute Nucleated RBC 0.000 (0.0-0.012) K/mm3 Nucleated RBC % 0.0 (0.0-0.2) % Sodium 140 (137-145) mmol/L Potassium 3.8 (3.4-5.0) mmol/L Chloride 100 (98-107) mmol/L Carbon Dioxide 31 H (22-30) mmol/L Anion Gap 9 (4-12) mmol/L BUN 16 (7-17) mg/dL Creatinine 0.79 (0.7-1.0) mg/dL Estim Creat Clear Calc Not Reportable Estimated GFR > 60 (59 - ) Glucose 130 H (65-110) mg/dL Calcium 9.9 (8.4-10.2) mg/dL Magnesium 2.2 (1.6-2.3) mg/dL Total Bilirubin 0.4 (0.2-1.3) mg/dL AST 49 H (14-36) U/L ALT 32 (6-35) U/L Alkaline Phosphatase 55 (38-126) U/L Total Protein 8.8 H (6.3-8.2) g/dL Albumin 4.7 (3.5-5.1) g/dL Imaging Data Attestation: I personally reviewed and interpreted this imaging study as follows: My impression: Chest x-ray without any pulmonary edema, pleural effusions or pneumothorax. Discharge Plan Discharge Clinical Impression: Anxiety, Asymptomatic hypertension Patient Disposition: Home Condition: Stable Instructions: Antibiotic Form Additional Instructions: Follow-up with your primary care provider regarding her ER visit. Return with any new or worsening concerns at any time. Maintain your blood pressure diary and take her medicines as prescribed. Patient Language: Burkinan Prescriptions: No Action aspirin [Adult Low Dose Aspirin] 81 mg tablet,delayed release (DR/EC) 81 mg PO DAILY calcium citrate-vitamin D3 [Citracal + D Maximum] 315 mg-6.25 mcg (250 unit) tablet 1 tablet PO DAILY Centrum Silver Women 8 mg iron-400 mcg-300 mcg tablet 1 tablet PO DAILY fluticasone propionate 50 mcg/actuation spray,suspension 1 spray intranasal DAILY Rx Instructions: administer into each nostril furosemide 20 mg tablet 10 mg PO QAM olopatadine 0.6 % spray,non-aerosol 2 spray intranasal BID Rx Instructions: administer into each nostril magnesium citrate 100 mg tablet 100 mg PO DAILY mecobalamin (vitamin B12) 1,000 mcg tablet,chewable 1,000 mcg PO DAILY cholecalciferol (vitamin D3) 50 mcg (2,000 unit) tablet 50 mcg PO DAILY Qty: 90 0RF Biotene Dry Mouth Oral Rinse Mouthwash 15 ml mucous membrane QID PRN (Reason: dry mouth) Qty: 1000 0RF Rx Instructions: swish for 15-30 secs , then spit out; do not swallow diltiazem HCl [Tiadylt ER] 120 mg capsule,extended release 24 hr 120 mg PO DAILY Qty: 180 3RF metoprolol succinate 25 mg tablet extended release 24 hr 12.5 mg PO DAILY Qty: 15 4RF trazodone 50 mg tablet 50 mg PO QHS PRN (Reason: sleep) Qty: 30 6RF pantoprazole 20 mg tablet,delayed release (DR/EC) 20 mg PO QAM Qty: 90 3RF valsartan 320 mg tablet 320 mg PO DAILY Qty: 90 2RF duloxetine [Cymbalta] 20 mg capsule,delayed release(DR/EC) 20 mg PO DAILY Qty: 90 3RF hydralazine 50 mg tablet See Rx Instructions .ROUTE .COMPLEX Qty: 270 1RF Dose Instruction: TAKE 1 TABLET BY MOUTH THREE TIMES A DAY Rx Instructions: TAKE 1 TABLET BY MOUTH THREE TIMES A DAY alprazolam 0.25 mg tablet 0.25 mg PO DAILY PRN (Reason: anxiety) Qty: 30 0RF rosuvastatin 10 mg tablet 10 mg PO DAILY Qty: 90 3RF clonidine HCl 0.2 mg tablet 0.2 mg PO QHS Qty: 30 6RF Follow-up/Referrals: Tuan,Honorio E., ENVIRONMENTAL HEALTH SANITARIAN [Primary Care Provider] - Time of Disposition: 04:14
[2024-11-19 03:37] VITALS: BP 146/68
--- OUTSIDE RECORDS SUMMARY | 2024-11-19 03:50 | XMS_ITS | Clinical Summary ---
Author Organization [facility] Address [address] [place] [address] Care Team Providers Care It Manager Name Role Phone Marty Waller MD Unavailable Lorena Chow MD Unavailable [phone] Marilin Benitez MD Unavailable [phone] Heather Lima PhD Unavailable [phone] Tom Jamison DO Primary Care Provider [phone] Allergies Active Allergy Reactions Criticality Noted Date [...] from 12/01/2014:Stage 0(cTis (DCIS), cN0, cM0, ER+, MO+, HER2: Not Assessed) - Signed by Heather Lima, PhD on 12/28/2018 Pathologic stage from 12/11/2014:Stage IA(pT1a, pN0(sn), cM0, G1, ER+, MO+, HER2- ) - Signed by Heather Lima, PhD on 12/28/2018 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 01/16/2015 Cancer Staging:Clinical stage from 11/03/2014:Stage IA(T1, N0, M0) - Signed by Heather Lima, PhD on 12/28/2018 Pathologic stage from 12/11/2014:Stage IA(T1b, N0, cM0) - Signed by Heather Lima, PhD on 12/28/2018 Encounters Date Type Department Care Team Description 08/29/2024 Telephone [facility] Cardiology [address] [place] [address] Chilango Bernal MD from Last [...] on file Legal Sex 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 Gender Identity Not on file Sexual Orientation Not on file Obstetrics History Last Filed Vital Signs Vital Sign Reading Time Taken Comments Blood Pressure 144/68 07/13/2024 10:30 AM WASTE REMOVALIST Pulse 87 07/13/2024 10:30 AM WASTE REMOVALIST Temperature 36.3 C (97.4 F) 12/01/2023 12:33 PM CDT Respiratory Rate 18 12/01/2023 12:33 PM CDT Oxygen Saturation 98% 07/13/2024 10:30 AM WASTE REMOVALIST Inhaled Oxygen Concentration - - Weight 58.5 kg (129 lb) 07/13/2024 10:30 AM WASTE REMOVALIST Height 149.9 cm (4' 11) 07/13/2024 10:30 AM WASTE REMOVALIST Body Mass Index 26.05 07/13/2024 10:30 AM WASTE REMOVALIST Plan of Treatment Health Maintenance Due Date [...] compared to prior imaging studies performed at [facility] on 12/25/2020, 01/07/2022 and 03/02/2023. The [...] compared to prior imaging studies performed at [facility] on 12/25/2020, 01/07/2022 and 03/02/2023. The [...] Bone mineral density was performed on a HoloRaisedDigital Discovery Densitometer. Based on machine cross-calibration and [...] by the International Society of Clinical Densitometry. [id number] Marilin Benitez MD [facility] DXA PROCEDURES F inal Result from Last 3 Months or Most Recently Relevant to Health Maintenance Insurance MEDICARE [facility] MEDICARE [facility] Care Teams It Manager Relationship Specialty Start Date End Date Tom Jamison DO [address] [facility] [address] [place] [address] PCP - General Internal Medicine 02/23/24 Marty Waller MD Radiation Oncologist Radiation Oncology 12/28/18 Lorena Chow MD [address] [place] [address] Surgeon Surgical Oncology 12/28/18 Marilin Benitez MD [address] [place] [address] Medical Oncologist/Mechanical Engineering Manager Medical Oncology 12/28/18 Heather Lima, PhD [address] [place] [address] Nurse Practitioner Radiation Oncology 12/28/18
--- OUTSIDE RECORDS SUMMARY | 2024-11-19 03:50 | XMS_ITS | Referral Summary ---
Author Organization [facility] Address [address] [place] [address] Care Team Providers Care Cook Chef Name Role Phone Marty Waller MD Unavailable Lorena Chow MD Unavailable [phone] Marilin Benitez MD Unavailable [phone] Heather Lima PhD Unavailable Tom Jamison DO Primary Care Provider [phone] Encounters Date Type Department Care Team Description 08/29/2024 Telephone [facility] Cardiology [address] [place] [address] Chilango Bernal MD from Last [...] from 12/01/2014:Stage 0(cTis (DCIS), cN0, cM0, ER+, CA+, HER2: Not Assessed) - Signed by Heather Lima, PhD on 12/28/2018 Pathologic stage from 12/11/2014:Stage IA(pT1a, pN0(sn), cM0, G1, ER+, CA+, HER2- ) - Signed by Heather Lima, [...] on file 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 Gender Identity Not on file Sexual Orientation Not on file Last Filed Vital Signs Vital Sign Reading Time Taken Comments Blood Pressure 144/68 07/13/2024 10:30 AM SALES ACCOUNT LEADER Pulse 87 07/13/2024 10:30 AM SALES ACCOUNT LEADER Temperature 36.3 C (97.4 F) 12/01/2023 12:33 PM CDT Respiratory Rate 18 12/01/2023 12:33 PM CDT Oxygen Saturation 98% 07/13/2024 10:30 AM SALES ACCOUNT LEADER Inhaled Oxygen Concentration - - Weight 58.5 kg (129 lb) 07/13/2024 10:30 AM SALES ACCOUNT LEADER Height 149.9 cm (4' 11) 07/13/2024 10:30 AM SALES ACCOUNT LEADER Body Mass Index 26.05 07/13/2024 10:30 AM SALES ACCOUNT LEADER Plan of Treatment Not on file Procedures [...] compared to prior imaging studies performed at [facility] on 12/25/2020, 01/07/2022 and 03/02/2023. The breasts [...] compared to prior imaging studies performed at [facility] on 12/25/2020, 01/07/2022 and 03/02/2023. The breasts [...] Bone mineral density was performed on a HoloMetaboli Discovery Densitometer. Based on machine cross-calibration and [...] by the International Society of Clinical Densitometry. [id number] Marilin Benitez MD IMG DXA PROCEDURES F inal Result from Last 3 Months or Most Recently Relevant to Health Maintenance Insurance MEDICARE [facility] MEDICARE [facility] MEDICARE [facility] Care Teams Cook Chef Relationship Specialty Start Date End Date Tom Jamison DO [address] [address] PCP - General Internal Medicine 02/23/24 Marty Waller MD Radiation Oncologist Radiation Oncology 12/28/18 Lorena Chow MD [address] [place] [address] Surgeon Surgical Oncology 12/28/18 Marilin Benitez MD [address] [place] [address] Medical Oncologist/Floor Covering Printer Medical Oncology 12/28/18 Heather Lima, PhD [address] [place] [address] Nurse Practitioner Radiation Oncology 12/28/18
--- OUTSIDE RECORDS SUMMARY | 2024-11-19 03:50 | XMS_ITS | Continuity of Care Document ---
Author Organization [facility] Address [address] [place] [address] Phone Care Team Providers Care Import Manager Name Role Phone Rodolfo Chávez Unavailable Unavailable Procedures Procedure Date Office/outpatient Visit, Est Eye Exam & Treatment Refraction Eye Exam & Treatment Refraction Advance Directives Directive Yes / No Effective Date File Name No Information Encounters Encounter Description Practice Location Reason(s) For Visit Diagnoses Date Provider Providers Copied on Encounter Office/outpat ient Visit, Est [facility], [address] [place] [address] [address], [place], [place], [id number], [place] tel:[phone] [facility] No Information Mar-0 9-201 0 Saira Reynolds. [address], [place], [place], [facility], [place]. tel:[phone] [facility], [id number] [place] [address] [address], [place], [place], [id number], [place] tel:[phone] [facility] No Information Dec-2 9-200 9 Sanderson OD Ray. [address] , [address], [place], [place], [facility], [place]. tel:[phone] [facility], [address], [place], [place], [id number], [place] tel:[phone] [facility] No Information Dec-2 6-200 7 Sanderson OD Ray. [address] , [address], [place], [address], [place]. tel:[phone] Family History Family Member Type Diagnosis Age At Onset No Information Payers Payer name Insurance type Covered democrat ID Authoriza tion(s) No Information Social History [...]
[2024-11-19 03:58] LABS: Hematocrit 44.8 % (37.0-47.0); Hemoglobin 14.4 g/dL (12.0-15.0); Immature Granulocyte Percent A 0.3 % (0-0.5); Lymphocytes Absolute Auto 2.85 K/mm3 (0.9-3.2); Mean Corpuscular HGB Conc 32.1 g/dl (32-36); Mean Corpuscular Hemoglobin 31.6 pg (26-34); Mean Corpuscular Volume 98.5 fl (80-100); Nucleated Red Blood Cells Absolute Auto 0.000 K/mm3 (0.0-0.012); Nucleated Red Blood Cells Perc 0.0 % (0.0-0.2); Platelet Count Result 220 k/mm3 (150-375); Red Blood Count 4.55 M/mm3 (4.2-5.4); White Blood Count 7.5 K/mm3 (4.5-10.0)
[2024-11-19 04:08] LABS: Alanine Aminotransferase 32 U/L (6-35); Albumin Level 4.7 g/dL (3.5-5.1); Alkaline Phosphatase 55 U/L (38-126); Anion Gap 9 mmol/L (4-12); Aspartate Amino Transferase 49 U/L (14-36); Bilirubin,Total 0.4 mg/dL (0.2-1.3); Blood Urea Nitrogen 16 mg/dL (7-17); Calcium 9.9 mg/dL (8.4-10.2); Carbon Dioxide 31 mmol/L (22-30); Chloride 100 mmol/L (98-107); Estimated Glomerular Filt Rate > 60; Glucose 130 mg/dL (65-110); Magnesium 2.2 mg/dL (1.6-2.3); Potassium 3.8 mmol/L (3.4-5.0); Sodium 140 mmol/L (137-145); Total Protein 8.8 g/dL (6.3-8.2)
[2024-11-19 04:36] VITALS: BP 115/52; PULSE 69; RESP 18; O2SAT 98
== END 2024-11-19 04:37 | disposition home or self-care (01) ==
PROVIDERS: Emergency Provider Student in an Organized Health Care Education/Training Program; PCP Nurse Practitioner
DX: F41.9 Anxiety disorder, unspecified (principal); I10 Essential (primary) hypertension
CPT/HCPCS: 36415; 71045; 80053; 83735; 85025; 93005; 99284

== ENCOUNTER 2025-01-27 14:22 | Outpatient (CLI) | payer MEDICARE, SELFPAY ==
--- OUTSIDE RECORDS SUMMARY | 2009-07-24 05:30 | XMS_ITS | Continuity of Care Document ---
Author Organization [facility] Address [address] [place] [address] Phone Care Team Providers Care Breaker Operator Name Role Phone Rodolfo Chávez Unavailable Unavailable Procedures Procedure Date Office/outpatient Visit, Est Eye Exam & Treatment Refraction Eye Exam & Treatment Refraction Advance Directives Directive Yes / No Effective Date File Name No Information Encounters Encounter Description Practice Location Reason(s) For Visit Diagnoses Date Provider Providers Copied on Encounter Office/outpat ient Visit, Est [facility], [address] [place] [address] [address], [place], [place], [id number], [place] tel:[phone] [facility] No Information Mar-0 9-201 0 Saira Reynolds. [address] [facility] [place] [address], [place], [place], [facility], [place]. tel:[phone] [facility], [id number] [place] [address] [address], [place], [place], [id number], [place] tel:[phone] [facility] No Information Dec-2 9-200 9 Sanderson OD Ray. [address] [facility] [place] , [address], [place], [place], [facility], [place]. tel:[phone] [facility], [address], [place], [place], [id number], [place] tel:[phone] [facility] No Information Dec-2 6-200 7 Sanderson OD Ray. [address] [facility] , [address], [place], [address], [place]. tel:[phone] Family History Family Member Type Diagnosis Age At Onset No Information Payers Payer name Insurance type Covered alliance party ID Authoriza tion(s) No Information Social History Type Description Quantity Date Captured Comments Sex Female Smoking Status No Information Chief Complaint And Reason For Visit No Information Reason For Referral Reason For Referral No Information History Of Present Illness Encounter Date Complaint History Of Prese nt Illness No Information Functional Status Date Functional Assessmen t No Information Instructions Date Instruction Additional Infor mation No Information Assessments Type Assessment Date No Information Patient Care Teams Name Effective Dates (start - stop) Status Members No Information
--- NOTE | ~2025-01-27 | XR_ITS ---
EXAMINATION: XR toe 5th LT min 2V, 01/27/2025 14:30 CDT HISTORY: M79.675 - Pain in left toe(s) X 1 MONTH, NKI COMPARISON: No comparisons available. Findings: No acute fracture or malalignment. No significant degenerative changes. Soft tissues unremarkable. Impression: No acute fracture or malalignment. Reviewed, dictated and finalized at location A. Impression: No acute fracture or malalignment.
--- OUTSIDE RECORDS SUMMARY | 2025-01-27 15:09 | XMS_ITS | Encounter Summary ---
Author Organization [facility] Address [address] [place] [address] Care Team Providers Care Hvac Residential Service Technician Name Role Phone Marty Waller MD Unavailable Lorena Chow MD Unavailable [phone] Marilin Benitez MD Unavailable [phone] Heather Lima PhD Unavailable [phone] Tom Jamison DO Primary Care Provider [phone] Encounter Details Date Type Department Care Team (Late st Contact Info) Description 04/22/2024 Orders Only [facility] Health Information Management [address] [place] [address] Scanning, Provider Social History Tobacco Use Types Packs/Day Years Used Date Smoking Tobacco: Never Smokeless Tobacco: Never Comments No Sex and Gender Information Value Date Recorded Sex Assigned at Not on file Legal Sex Female 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 Gender Identity Not on file Sexual Orientation Not on file documented as of this encounter Plan of Treatment Not on file documented as of this encounter Procedures Procedure Name Priority Date/Time Associated Diagnosis Comments SCAN - RADIOLOGY/IMAGING 04/22/2024 SCAN - LABS 04/22/2024 documented in this encounter Results * SCAN - LABS (04/22/2024) us Provider Scanning Final Result * SCAN - RADIOLOGY/IMAGING (04/22/2024) Anatomical Region Laterality Modality Other us Provider Scanning Final Result documented in this encounter Visit Diagnoses Not on filedocumented in this encounter Care Teams Hvac Residential Service Technician Relationship Specialty Start Date End Date Tom Jamison DO [address] [place] [address] PCP - General Internal Medicine 02/23/24 Marty Waller MD Radiation Oncologist Radiation Oncology 12/28/18 Lorena Chow MD [address] [place] [address] Surgeon Surgical Oncology 12/28/18 Marilin Benitez MD [address] [place] [address] Medical Oncologist/Manager Neonatal Medical Oncology 12/28/18 Heather Lima, PhD [address] [place] [address] Nurse Practitioner Radiation Oncology 12/28/18 documented as of this encounter
--- OUTSIDE RECORDS SUMMARY | 2025-01-27 15:09 | XMS_ITS | Clinical Summary ---
Author Organization [facility] Address [address] [place] [address] Care Team Providers Care Hoisting Machine Operator Name Role Phone Marty Waller MD Unavailable Lorena Chow MD Unavailable [phone] Marilin Benitez MD Unavailable [phone] Heather Lima PhD Unavailable [phone] Tom Jamison DO Primary Care Provider [phone] Allergies Active Allergy Reactions Criticality Noted Date [...] mouth daily 90 tablet 2 08/29/2024 Active furosemide (LASIX) 20 mg tablet 11/25/2024 Active Active Problems Problem Noted Date Diagnosed Date Primary hypertension 04/29/2024 Palpitations 04/29/2024 Mixed hyperlipidemia 04/29/2024 History of bilateral breast cancer 12/28/2018 Carcinoma of central portion of left breast in female, estrogen receptor positive 12/28/2018 Cancer Staging:Clinical stage from 12/01/2014:Stage 0(cTis (DCIS), cN0, cM0, ER+, CT+, HER2: Not Assessed) - Signed by Heather Lima, PhD on 12/28/2018 Pathologic stage from 12/11/2014:Stage IA(pT1a, pN0(sn), cM0, G1, ER+, CT+, HER2- ) - Signed by Heather Lima, PhD on 12/28/2018 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 01/16/2015 Cancer Staging:Clinical stage from 11/03/2014:Stage IA(T1, N0, M0) - Signed by Heather Lima, PhD on 12/28/2018 Pathologic stage from 12/11/2014:Stage IA(T1b, N0, cM0) - Signed by Heather Lima, PhD on 12/28/2018 Encounters Date Type Department Care Team Description 12/02/2024 10:30 AM CDT Office Visit [facility] Medicine Oncology [address] [place] [address] Toshia Ryan, THALIA Primary malignant neoplasm of upper inner quadrant of female breast (HCC) (Primary Dx); Carcinoma of central portion of left breast in female, estrogen receptor positive (HCC) 11/30/2024 10:30 AM CDT Office Visit [facility] Cardiology [address] [place] [address] Sowmya Beth NP Primary hypertension (Primary Dx) from Last 3 Months Immunizations Immunization Administration [...] on file 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 Gender Identity Not on file Sexual Orientation Not on file Obstetrics History Last Filed Vital Signs Vital Sign Reading Time Taken Comments Blood Pressure 107/61 12/02/2024 10:22 AM CDT Pulse 58 12/02/2024 10:22 AM CDT Temperature 36.1 C (97 F) 12/02/2024 10:22 AM CDT Respiratory Rate 16 12/02/2024 10:22 AM CDT Oxygen Saturation 98% 12/02/2024 10:22 AM CDT Inhaled Oxygen Concentration - - Weight 59.1 kg (130 lb 6.4 oz) 12/02/2024 10:22 AM CDT Height 149.9 cm (4' 11) 11/30/2024 10:53 AM CDT Body Mass Index 26.34 11/30/2024 10:53 AM CDT Plan of Treatment Health Maintenance Due Date [...] Additional history exists Covid-19 Vaccine (3 - 2024-2 6 season) 2025 08/05/2020, 07/15/2020 Influenza Vaccine (#1) 2025 03/05/2020 [...] compared to prior imaging studies performed at [facility] on 12/25/2020, 01/07/2022 and 03/02/2023. The breasts [...] compared to prior imaging studies performed at [facility] on 12/25/2020, 01/07/2022 and 03/02/2023. The breasts [...] 10/08/2021 11:04 AM CDT Patient Name: Ana Lopez Date of : 1950 Date of scan: 10/08/2021 Bone mineral density was performed on a [employer] Discovery Densitometer. Based on machine cross-calibration and [...] mineral density scan were prepared by Ange Gaona (R M)(CLOTILDE) CBDT who is accredited by the International Society of Clinical Densitometry. The overall patient assessment and scan interpretation were performed by Carmina Rollins MD who is certified by the International Society of Clinical Densitometry. [id number] Marilin Benitez MD IM DXA PROCEDURES F inal Result from Last 3 Months or Most Recently Relevant to Health Maintenance Insurance [facility] MEDICARE [facility] Member Subscriber Plan / Payer (Ef fective 2017-Present) Name:Ana Lopez Relation to Subscriber:Self Name:ANA LOPEZ Payer ID:[id number] Group ID:[id number] Type:COMMERCIAL Address: [facility] [id number] [place] [id number] MEDICARE [facility] Care Teams Hoisting Machine Operator Relationship Specialty Start Date End Date Tom Jamison DO [address] [place] [address] PCP - General Internal Medicine 02/23/24 Marty Waller MD Radiation Oncologist Radiation Oncology 12/28/18 Lorena Chow MD [address] [place] [address] Surgeon Surgical Oncology 12/28/18 Marilin Benitez MD [address] [place] [address] Medical Oncologist/Acid Operator Medical Oncology 12/28/18 Heather Lima, PhD [address] [place] [address] Nurse Practitioner Radiation Oncology 12/28/18
== END 2025-01-27 14:23 | disposition home or self-care (01) ==
PROVIDERS: PCP Nurse Practitioner; Visit Provider Nurse Practitioner
DX: M79.675 Pain in left toe(s) (principal)
CPT/HCPCS: 73660

== ENCOUNTER 2025-02-01 01:49 | Day surgery (SDC) | payer MEDICARE, SELFPAY ==
--- OUTSIDE RECORDS SUMMARY | 2009-07-24 05:30 | XMS_ITS | Continuity of Care Document ---
Author Organization [facility] Address [address] [place] [address] Phone Care Team Providers Care Screen Maker Name Role Phone Rodolfo Chávez Unavailable Unavailable Procedures Procedure Date Office/outpatient Visit, Est Eye Exam & Treatment Refraction Eye Exam & Treatment Refraction Advance Directives Directive Yes / No Effective Date File Name No Information Encounters Encounter Description Practice Location Reason(s) For Visit Diagnoses Date Provider Providers Copied on Encounter Office/outpat ient Visit, Est [facility], [address] [place] [address] [address], [place], [place], [id number], [place] tel:[phone] [facility] No Information Mar-0 9-201 0 Saira Reynolds. [address] [facility] [place] [address], [place], [place], [facility] [place], [place]. tel:[phone] [facility], [id number] [place] [address] [address], [place], [place], [id number], [place] tel:[phone] [facility] No Information Dec-2 9-200 9 Sanderson OD Ray. [address] [facility] [place] , [address], [place], [place], [facility] [place], [place]. tel:[phone] [facility], [address], [place], [place], [id number], [place] tel:[phone] [facility] No Information Dec-2 6-200 7 Sanderson OD Ray. [address] [facility] , [address], [place], [address], [place]. tel:[phone] Family History Family Member Type Diagnosis Age At Onset No Information Payers Payer name Insurance type Covered green party ID Authoriza tion(s) No Information Social [...]
[2024-11-28 09:59] VITALS: BMI 25.8
[2025-01-20 08:41] VITALS: BMI 25.8
--- OUTSIDE RECORDS SUMMARY | 2025-02-01 01:57 | XMS_ITS | Clinical Summary ---
Author Organization [facility] Address [address] [place] [address] Care Team Providers Care Jukebox Coin Collector Name Role Phone Marty Waller MD Unavailable Lorena Chow MD Unavailable [phone] Marilin Benitez MD Unavailable [phone] Heather Lima PhD Unavailable [phone] Tom Jamison DO Primary Care Provider Allergies Active Allergy Reactions Criticality Noted Date [...] from 12/01/2014:Stage 0(cTis (DCIS), cN0, cM0, ER+, UT+, HER2: Not Assessed) - Signed by Heather Lima, PhD on 12/28/2018 Pathologic stage from 12/11/2014:Stage IA(pT1a, pN0(sn), cM0, G1, ER+, UT+, HER2- ) - Signed by Heather Lima, [...] Description 12/02/2024 10:30 AM CDT Office Visit [facility] Medicine Oncology [address] [facility] [address] [place] [address] Toshia Ryan, THALIA Primary malignant neoplasm of upper inner quadrant of female breast (HCC) (Primary Dx); Carcinoma of central portion of left breast in female, estrogen receptor positive (HCC) 11/30/2024 10:30 AM CDT Office Visit [facility] Medical Group Cardiology [address] [place] [address] Sowmya Beth NP Primary hypertension [...] on file 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 The breasts [...] to prior imaging studies performed at [facility] on 12/25/2020, 01/07/2022 and 03/02/2023. The breasts [...] Bone mineral density was performed on a [employer] Discovery Densitometer. Based on machine cross-calibration and [...] by the International Society of Clinical Densitometry. [id number] Marilin Benitez MD IM DXA PROCEDURES F inal Result from Last 3 Months or Most Recently Relevant to Health Maintenance Insurance [facility] MEDICARE [facility] Member Subscriber Plan / Payer (Ef fective 2017-Present) Name:Ana Lopez Relation to Subscriber:Self Name:ANA LOPEZ Payer ID:[id number] Group ID:[id number] [id number] Type:COMMERCIAL Address: [facility] [id number] [id number] MEDICARE [facility] Care Teams Jukebox Coin Collector Relationship Specialty Start Date End Date Tom Jamison DO [address] [place] [address] PCP - General Internal Medicine 02/23/24 Marty Waller MD Radiation Oncologist Radiation Oncology 12/28/18 Lorena Chow MD [address] [place] [address] Surgeon Surgical Oncology 12/28/18 Marilin Benitez MD [address] [place] [address] Medical Oncologist/Rig Hand Medical Oncology 12/28/18 Heather Lima, PhD [address] [place] [address] Nurse Practitioner Radiation Oncology 12/28/18
--- OUTSIDE RECORDS SUMMARY | 2025-02-01 01:57 | XMS_ITS | Encounter Summary ---
Author Organization [facility] Address [address] [place] [address] Care Team Providers Care Outpatient Phlebotomist Name Role Phone Marty Waller MD Unavailable Lorena Chow MD Unavailable [phone] Marilin Benitez MD Unavailable [phone] Heather Lima PhD Unavailable [phone] Tom Jamison DO Primary Care Provider [phone] Encounter Details Date Type Department Care Team (Late st Contact Info) Description 04/22/2024 Orders Only [facility] Health Information Management [address] [place] [address] Scanning, Provider Social History Tobacco Use Types Packs/Day Years Used Date Smoking Tobacco: Never Smokeless Tobacco: Never Comments No Sex and Gender Information Value Date Recorded Sex Assigned at Not on file Legal Sex Female 3:44 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 Gender Identity Not on file Sexual Orientation [...] on filedocumented in this encounter Care Teams Outpatient Phlebotomist Relationship Specialty Start Date End Date Tom Jamison DO [address] [place] [address] PCP - General Internal Medicine 02/23/24 Marty Waller MD Radiation Oncologist Radiation Oncology 12/28/18 Lorena Chow MD [address] [place] [address] Surgeon Surgical Oncology 12/28/18 Marilin Benitez MD [address] [place] [address] Medical Oncologist/Secretary Book Keeper Medical Oncology 12/28/18 Heather Lima, PhD [address] [place] [address] Nurse Practitioner Radiation Oncology 12/28/18 documented as of this encounter
--- OUTSIDE RECORDS SUMMARY | 2025-02-01 01:58 | XMS_ITS | Patient Health Record ---
Author Organization [facility] [employer] [place] ([address]) Address [address] [place] [address] Care Team Providers Care Qc Chemist Name Role Phone Brian Ibarra Primary Care Provider UnavailJann Humphries Unavailable [phone] Tom Jamison Unavailable Unavailable Solomon Aviles Unavailable [phone] Allergies Allergen (clinical drug ingredient) Drug/Non Drug [...] review and pick correct strength-formula tion from [employer] options. If intended option is not shown, discontinue and re-order from Quick Search* Active Rosuvastatin Calcium 10 MG 1 tab(s) orally once a day; Duration: 30 day(s) Active Vitamin D (Ergocalciferol) 1.25 MG (38512 UT) 1 cap(s) orally once a week; [...] Status Risk Notes Problem Chronic allergic conjunctivitis (67542016) Other chronic allergic conjunctivitis (H10.45) Active confirmed Problem Allergic rhinitis caused by pollen (disorder) (55450962) Allergic rhinitis due to pollen (J30.1) Active confirmed Problem Allergic rhinitis caused by animal hair and dander (843838192635493) Allergic rhinitis due to animal (cat) (dog) hair and dander (J30.81) Active confirmed Problem Allergic rhinitis (48891392) Other allergic rhinitis (J30.89) Active confirmed Problem Allergic rhinitis caused by pollen (disorder) (92971262) Allergic rhinitis due to pollen (J30.1) Active confirmed Problem Allergic rhinitis caused by animal hair and dander (854483055714212) Allergic rhinitis due to animal (cat) (dog) hair and dander (J30.81) Active confirmed Problem Allergic rhinitis (74059990) Other allergic rhinitis (J30.89) Active confirmed Problem Chronic allergic conjunctivitis (40281424) Other chronic allergic conjunctivitis (H10.45) Active confirmed Problem Chronic sinusitis (87712139) Chronic sinusitis, unspecified (J32.9) Active confirmed Problem Essential hypertension (17844735) Essential (primary) hypertension (I10) Active confirmed Vital Signs Blood pressure diastolic 75 mm Hg 02/29/2024 Oximetry 99 % 02/29/2024 Height 59 in 02/29/2024 Blood pressure systolic 144 mm Hg 02/29/2024 Weight 131 lbs 02/29/2024 BMI 26.46 kg/m2 02/29/2024 Encounters Encounter Location Date Provider Diagnosis [facility] [address] [place] [address] 02/18/2024 Solomon Aviles Allergic rhinitis du e to pollen J30.1 ; Allergic rhinitis due to animal (cat) (dog) hair and dander J30.81 ; Other allergic rhinitis J30.89 and Other chronic allergic conjunctivitis H10.45 [facility] [address] [place] [address] 02/11/2024 Solomon Aviles Allergic rhinitis du e to pollen J30.1 ; Allergic rhinitis due to animal (cat) (dog) hair and dander J30.81 ; Other allergic rhinitis J30.89 and Other chronic allergic conjunctivitis H10.[address] [address] 02/29/2024 Jann Berg Allergic rhinitis du e to pollen J30.1 ; Allergic rhinitis due to animal (cat) (dog) hair and dander J30.81 ; Other allergic rhinitis J30.89 ; Other chronic allergic conjunctivitis H10.45 ; Chronic sinusitis, unspecified J32.9 and Essential (primary) hypertension [facility] [address] [place] [address] 03/10/2024 Jann Berg Assessments Encounter Date Diagnosis (ICD Code) Assessment Notes Treatment Notes Treatment Clinical Notes Section Notes 02/11/2024 Allergic rhinitis due to pollen (ICD-10 [...] hair and dander (ICD-10 - J30.81) 02/11/2024 Other allergic rhinitis (ICD-10 - J30.89) [...] undergo sinus surgergy with ENT next month 02/18/2024 Other chronic allergic conjunctivitis (ICD-10 - [...] Insured Coverage Start Date Coverage End Date [employer] (Medicare) Attention Claims [address] [place] [address] [id number] Ana Lopez Self - patient is the insured [facility] [address] [place] [address] [phone] [id number] Ana Lopez Self - patient is the insured Medical (General) History Medical History History ICD Code Stage 1 breast cancer in remission Hypertension Sleep Apnea with CPAP Cholesterol Surgical History Surgery Date(Month/Year) kidney stone Histerectomy
--- OUTSIDE RECORDS SUMMARY | 2025-02-01 01:58 | XMS_ITS | Patient Health Record ---
Author Organization [facility] [employer] Address [address] [place] [address] Care Team Providers Care Hot Strip Finisher Name Role Phone Jamir Barbosa Unavailable [phone] Reason For Referral No Information Medications Medication SIG (Take, Route, Frequency, Duration) Notes Start Date End Date Status Doxepin HCl 6 MG Tablet Oral 09/18/2023 Active Losartan Potassium 100 MG Tablet Oral 09/18/2023 Active busPIRone HCl 5 MG Tablet Oral 09/18/2023 Active Cymbalta 20 MG Capsule Delayed Release Particles Oral 09/18/2023 Active Multi Vitamin *Pick strength-form from [employer] for eRX* 09/18/2023 Active Rosuvastatin Calcium 10 MG Tablet Oral 09/18/2023 Active Ergocalciferol 1.25 MG (08898 UT) Capsule Oral 09/18/2023 Active Montelukast Sodium 10 MG Tablet Oral 09/18/2023 Active Metoprolol Succinate ER 50 MG Tablet Extended Release 24 Hour Oral 09/18/2023 Active Pantoprazole Sodium 20 MG Tablet Delayed Release Oral 09/18/2023 Active TIADYLT ER 120 MG CAPSULE,EXTENDED RELEASE *Reorder from [employer] for eRx and Interaction Alerts* 09/18/2023 Active Paxlovid (300/100) 20 x 150 MG & 10 x 100MG Tablet Therapy Pack Oral *Reorder from [employer] for eRx and Interaction Alerts* 09/18/2023 Active Terconazole 0.8 % Cream Vaginal 09/18/2023 Active Olopatadine HCl 0.6 % Solution Nasal 09/18/2023 Active amLODIPine Besylate 5 MG Tablet Oral 09/18/2023 Active EPINEPHrine 0.3 MG/0.3ML Solution Auto-injector Injection 09/18/2023 Active Lisinopril 20 MG Tablet Oral 09/18/2023 Active ALPRAZolam 0.25 MG Tablet Oral 09/18/2023 Active DULoxetine HCl 20 MG Capsule Delayed Release Particles Oral 09/18/2023 Active busPIRone HCl 7.5 MG Tablet Oral 09/18/2023 Active ZyrTEC Allergy 10 MG Capsule Oral 09/18/2023 Active Zolpidem Tartrate 5 MG Tablet Oral 09/18/2023 Active Furosemide 20 MG Tablet Oral 09/18/2023 Active Social History Social History Additional Details Category Social Info Options Details Migrated Social History Migrated Social History Alcohol Intake: None 12/04/2022,Tobacco Years: Never smoker 12/04/2022 Plan Of Treatment No Information Insurance Providers Payer Name Payer Address Payer Phone Subscriber Number Group Number Insured Name Patient Relationship to Insured Coverage Start Date Coverage End Date Medicare-I l Medicare [address] [place] [phone] [id number] DONOVAN CHAVEZ Self - patient is the insured [employer] use other one [address] [place] [address] [id number] DONOVAN CHAVEZ Self - patient is the insured Medical (General) History Surgical History Surgery Date(Month/Year) Hysterectomy (62936) Breast surgery () Cataract surgery (33133)
[2025-02-01 09:42] VITALS: BP 141/76; PULSE 99; RESP 14; TEMP 36.9; O2SAT 99; BMI 26.4
--- NOTE | 2025-02-01 10:00 | PM.IMHP ---
H&P: HPI History of Present Illness Date/Time: 02/01/25 10:00 Chief Complaint: family history of colorectal cancer Narrative: This patient has family history of colorectal cancer. her brother had colorectal cancer diagnosed at age 60. Review of Systems Review of Systems: All systems reviewed & are unremarkable except as noted in HPI and below [facility] Past Medical History Medical History (Updated 01/27/25 @ 10:53 by Honorio Dickerson APRN) Heart palpitations BMI 26.0-26.9,adult History of vaginal delivery Obstructive sleep apnea Breast cancer Hyperlipidemia Anxiety Hypertension Surgical History Surgical History History of laparoscopy History of hysterectomy History of lumpectomy of both breasts Family History Family History Sibling Colon cancer Carcinoma of colon Father No problems noted. Mother No problems noted. Other Breast cancer Diabetes mellitus Hypertension Social History Social History Social History: never smoker Smoking status: Never smoker Second hand tobacco smoke exposure: No Alcohol intake: never Substance use: never Substance use type: does not use Do You Feel Safe in your Home?: Yes Lack of Transportation: No Lack of Food: Never True Current Housing: I Have Housing Concerned About Future Housing: No Difficulty Paying Gas/Electric Bills: Decline to Answer Difficulty Paying for Meds: Decline to Answer Currently Unemployed: No Education: Bachelor's Degree Difficulty w/ Childcare or Family Care: No Living arrangements: with family Occupation/Education: retired 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 Gender identity (if verbalized by the patient): Female Sexual Orientation (if Verbalized by the Patient): Straight or Heterosexual Spiritual care concerns: No Agree to blood products: Yes Meds Home Medications and Allergies Home Medications ?Medication ?Instructions ?Recorded ?Confirmed ?Type aspirin 81 mg tablet,delayed 81 mg PO DAILY 10/09/21 02/01/25 History release (Adult Low Dose Aspirin) calcium 315 mg (as 1 tablet PO DAILY 10/09/21 02/01/25 History citrate)-vitamin D3 6.25 mcg (250 unit) tablet (Citracal + Vitamin D Maximum) zkledkqw-[id number]-aalh 8 mg-folic 400 1 tablet PO DAILY 10/09/21 02/01/25 History mcg-K 50 mcg-lutein 300 mcg tablet (Centrum Silver Women) fluticasone propionate 50 1 spray intranasal DAILY 05/13/22 02/01/25 History mcg/actuation nasal spray,suspension saliva substitute combo no.9 15 ml mucous membrane QID PRN dry 06/25/22 01/27/25 Rx (Biotene Dry Mouth Oral Rinse mouth #1,000 mL mouthwash) olopatadine 0.6 % nasal spray 2 spray intranasal BID 01/05/23 02/01/25 History diltiazem HCl 120 mg capsule,24 120 mg PO DAILY #180 caps 01/22/24 02/01/25 Rx hr,extended release (Tiadylt ER) cholecalciferol (vitamin D3) 50 50 mcg PO DAILY #90 tabs 01/25/24 02/01/25 Rx mcg (2,000 unit) tablet magnesium citrate 100 mg tablet 100 mg PO DAILY 01/25/24 02/01/25 History mecobalamin (vitamin B12) 1,000 1,000 mcg PO DAILY 01/25/24 02/01/25 History mcg chewable tablet metoprolol succinate 25 mg 12.5 mg (1/2 x 25 mg) PO DAILY #15 04/19/24 02/01/25 Rx tablet,extended release 24 hr tabs trazodone 50 mg tablet 50 mg PO QHS PRN sleep #30 tabs 05/16/24 01/27/25 Rx pantoprazole 20 mg tablet,delayed 20 mg PO QAM #90 tabs 06/01/24 02/01/25 Rx release valsartan 320 mg tablet 320 mg PO DAILY #90 tabs 06/10/24 02/01/25 Rx duloxetine 20 mg capsule,delayed 20 mg PO DAILY #90 caps 08/08/24 02/01/25 Rx release (Cymbalta) hydralazine 50 mg tablet See Rx Instructions .Route 08/31/24 02/01/25 Rx .COMPLEX #270 tabs alprazolam 0.25 mg tablet 0.25 mg PO DAILY PRN anxiety #30 09/09/24 02/01/25 Rx tabs rosuvastatin 10 mg tablet 10 mg PO DAILY #90 tabs 09/12/24 02/01/25 Rx furosemide 20 mg tablet 10 mg PO QAM 10/27/24 02/01/25 History biotin 1 mg capsule 1 mg PO DAILY 11/28/24 02/01/25 History Allergies Allergy/AdvReac Type Severity Reaction Status Date / Time meperidine Allergy Mild Hives Verified 02/01/25 09:48 niacin Allergy Mild Hives Verified 02/01/25 09:48 sertraline AdvReac Intermediate facial Verified 02/01/25 09:48 twitching Vital Signs Vital Signs - 24 hr 02/01/25 09:42 Temperature 98.5 F Pulse Rate 99 Respiratory Rate 14 Blood Pressure 141/76 H Pulse Oximetry 99 Oxygen Delivery Room Air Exam Const: General: cooperative and healthy appearing Resp: Effort & Inspection: normal respiratory effort and able to speak in complete sentences Auscultation: clear to auscultation bilaterally Cardio: Rate: regular rate Rhythm: regular rhythm GI: Inspection: normal to inspection GI Palp: No No hepatosplenomegaly present Auscultation: normal bowel sounds Rectal Exam: deferred Skin: General skin exam: normal color Psych: Appearance: grossly normal Mental Status: mental status grossly normal Assessment and Plan Assessment and plan (1) Family history of colon cancer: Code(s): Z80.0 - Family history of malignant neoplasm of digestive organs Status: Acute Assessment and Plan: The patient is deemed a good candidate for the procedure. Consent signed. Will proceed.
[2025-02-01] MEDS: LACTATED RINGERS 1,000 ML 150 ML IV CONT (10:02)
--- NOTE | 2025-02-01 10:13 | WPDANESEPPF ---
Anes - Initial Pre Proc Eval Procedure: Operation Date: 02/01/25 11:00 Proposed Procedures p Screening Colonoscopy - Julio Zafar MD Date/Time: 02/01/25 10:13 Surgeon: Julio Zafar MD Pre Op Diagnosis: Family hx of malignant neoplasm of digestive organ Patient Data Age: 74 Gender: F Height: 1.5 m Weight: 59.5 kg Last Vital Signs Temp 98.5 F 02/01/25 09:42 Pulse 99 02/01/25 09:42 Resp 14 02/01/25 09:42 BP 141/76 H 02/01/25 09:42 Pulse Ox 99 02/01/25 09:42 O2 Del Method Room Air 02/01/25 09:42 Allergies Allergy/AdvReac Type Severity Reaction Status Date / Time meperidine Allergy Mild Hives Verified 02/01/25 09:48 niacin Allergy Mild Hives Verified 02/01/25 09:48 sertraline AdvReac Intermediate facial Verified 02/01/25 09:48 twitching Home Medications ?Medication ?Instructions ?Recorded ?Confirmed ?Type aspirin 81 mg tablet,delayed 81 mg PO DAILY 10/09/21 02/01/25 History release (Adult Low Dose Aspirin) calcium 315 mg (as 1 tablet PO DAILY 10/09/21 02/01/25 History citrate)-vitamin D3 6.25 mcg (250 unit) tablet (Citracal + Vitamin D Maximum) [id number] 8 mg-folic 400 1 tablet PO DAILY 10/09/21 02/01/25 History mcg-K 50 mcg-lutein 300 mcg tablet (Centrum Silver Women) fluticasone propionate 50 1 spray intranasal DAILY 05/13/22 02/01/25 History mcg/actuation nasal spray,suspension saliva substitute combo no.9 15 ml mucous membrane QID PRN dry 06/25/22 01/27/25 Rx (Biotene Dry Mouth Oral Rinse mouth #1,000 mL mouthwash) olopatadine 0.6 % nasal spray 2 spray intranasal BID 01/05/23 02/01/25 History diltiazem HCl 120 mg capsule,24 120 mg PO DAILY #180 caps 01/22/24 02/01/25 Rx hr,extended release (Tiadylt ER) cholecalciferol (vitamin D3) 50 50 mcg PO DAILY #90 tabs 01/25/24 02/01/25 Rx mcg (2,000 unit) tablet magnesium citrate 100 mg tablet 100 mg PO DAILY 01/25/24 02/01/25 History mecobalamin (vitamin B12) 1,000 1,000 mcg PO DAILY 01/25/24 02/01/25 History mcg chewable tablet metoprolol succinate 25 mg 12.5 mg (1/2 x 25 mg) PO DAILY #15 04/19/24 02/01/25 Rx tablet,extended release 24 hr tabs trazodone 50 mg tablet 50 mg PO QHS PRN sleep #30 tabs 05/16/24 01/27/25 Rx pantoprazole 20 mg tablet,delayed 20 mg PO QAM #90 tabs 06/01/24 02/01/25 Rx release valsartan 320 mg tablet 320 mg PO DAILY #90 tabs 06/10/24 02/01/25 Rx duloxetine 20 mg capsule,delayed 20 mg PO DAILY #90 caps 08/08/24 02/01/25 Rx release (Cymbalta) hydralazine 50 mg tablet See Rx Instructions .Route 08/31/24 02/01/25 Rx .COMPLEX #270 tabs alprazolam 0.25 mg tablet 0.25 mg PO DAILY PRN anxiety #30 09/09/24 02/01/25 Rx tabs rosuvastatin 10 mg tablet 10 mg PO DAILY #90 tabs 09/12/24 02/01/25 Rx furosemide 20 mg tablet 10 mg PO QAM 10/27/24 02/01/25 History biotin 1 mg capsule 1 mg PO DAILY 11/28/24 02/01/25 History Patient hx anesthesia problems: none Family hx anesthesia problems: none Results Review: All pre-operative results and documents have been reviewed as part of the pre-operative evaluation. [facility] Past Medical History Medical History Heart palpitations BMI 26.0-26.9,adult History of vaginal delivery Obstructive sleep apnea Breast cancer Hyperlipidemia Anxiety Hypertension Surgical History Surgical History History of laparoscopy History of hysterectomy History of lumpectomy of both breasts Family History Family History Sibling Colon cancer Carcinoma of colon Father No problems noted. Mother No problems noted. Other Breast cancer Diabetes mellitus Hypertension Social History Social History Social History: never smoker Smoking status: Never smoker Second hand tobacco smoke exposure: No Alcohol intake: never Substance use: never Substance use type: does not use Do You Feel Safe in your Home?: Yes Lack of Transportation: No Lack of Food: Never True Current Housing: I Have Housing Concerned About Future Housing: No Difficulty Paying Gas/Electric Bills: Decline to Answer Difficulty Paying for Meds: Decline to Answer Currently Unemployed: No Education: Bachelor's Degree Difficulty w/ Childcare or Family Care: No Living arrangements: with family Occupation/Education: retired 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 ) Neurological: alert and oriented Last oral intake: >/= 8 hours ASA classification: III Emergent: no Anesthetic plan: proceed Anesthesia type and monitoring: general GIVS and standard monitoring Results Review: All pre-operative results and documents have been reviewed as part of the pre-operative evaluation. HTN, hyperlipidemia, hx of breast ca, pt has ADALI and uses a dental appliance. Informed Consent: The patient's anesthetic plan and its attendant risks and benefits were discussed with the patient/family/POA. Questions were solicited and answers provided to the satisfaction of the patient/family/POA.
--- NOTE | 2025-02-01 10:49 | S_PTH ---
PATIENT: Ana Lopez LOC: [facility]#:[id number] AGE/SX: 74/F ROOM: RE02/01/[address]: Julio Zafar MD : 1950 BED: DIS: 02/01/2025 SPEC #: [id number] RECD: 02/01/25 13:46 STATUS: FATEMEH REQ #: [id number] PAPO: 02/01/25 10:[address]: Julio Zafar DEPT: [facility] Surgical RECD BY: Ramona Vera ENTERED: 02/01/25 13:46 SP TYPE: Surgical OTHR DR: Honorio Dickerson APRN Tissues: A - Colon Polypectomy Procedures: Hematoxylin and Eosin Stain Gross and Microscopic Level 4
[2025-02-01 10:53] VITALS: BP 81/42; PULSE 81; RESP 14; O2SAT 98
[2025-02-01 11:03] VITALS: BP 103/56; PULSE 90; RESP 14; O2SAT 98
[2025-02-01 11:13] VITALS: BP 127/71; PULSE 85; RESP 14; O2SAT 98
[2025-02-01 11:23] VITALS: BP 133/69; PULSE 85; RESP 15; O2SAT 98
== END 2025-02-01 11:35 | disposition home or self-care (01) ==
PROVIDERS: PCP Nurse Practitioner; Referring Provider Nurse Practitioner; Visit Provider Internal Medicine Gastroenterology
PROC: 0DJD8ZZ Inspection of Lower Intestinal Tract, Via Natural or Artificial Opening Endoscopic (ICD-10-PCS; CPT 45378; principal; 2025-02-01 11:00)
DX: Z12.11 Encounter for screening for malignant neoplasm of colon (principal); D12.2 Benign neoplasm of ascending colon; E78.5 Hyperlipidemia, unspecified; I10 Essential (primary) hypertension; G47.33 Obstructive sleep apnea (adult) (pediatric); F41.9 Anxiety disorder, unspecified; R00.2 Palpitations; Z79.82 Long term (current) use of aspirin; Z98.890 Other specified postprocedural states; Z90.13 Acquired absence of bilateral breasts and nipples; Z85.3 Personal history of malignant neoplasm of breast; Z80.0 Family history of malignant neoplasm of digestive organs; Z80.3 Family history of malignant neoplasm of breast
CPT/HCPCS: 45385; 88305; J2003; J2704; J7120

== ENCOUNTER 2025-04-25 10:38 | Outpatient (CLI) | payer MEDICARE, SELFPAY ==
--- NOTE | ~2025-04-25 | DEXA_ITS ---
Bone Density Report Name: DONOVAN CHAVEZ Age: 74 Sex: Female Ethnicity: Date of : 1950 Indication: osteopenia; hysterectomy; Referring Provider: ELI PEÑA Study: Bone densitometry was performed. Exam Date: April 25, 2025 Accession number: [id number] Bone Density: Region BMD T-score Z-score Classification AP Spine(L1-L4) 0.843 -1.9 0.6 Osteopenia Femoral Neck (Left) 0.626 -2.0 0.1 Osteopenia Total Hip (Left) 0.849 -0.8 1.1 Normal Femoral Neck (Right) 0.670 -1.6 0.5 Osteopenia Total Hip (Right) 0.827 -0.9 0.9 Normal Total Hip Mean 0.838 -0.9 1.0 Normal World Health Organization criteria for BMD impression classify patients as: Normal (T-score at or above -1.0), Osteopenia (T-score between -1.0 and -2.5), or Osteoporosis (T-score at or below -2.5). 10-year Fracture Risk(1): Major Osteoporotic Fracture 7.7% Hip Fracture 1.9% Reported Risk Factors: [place] (), Neck BMD=0.626, BMI=26.3 (1) FRAX(R) Version 3.08. Fracture probability calculated for an untreated patient. Fracture probability may be lower if the patient has received treatment. Previous Exams: -- Region Exam Age BMD T-score BMD Change BMD Change Date g/cm2 vs Baseline vs Previous -- AP Spine (L1-L4) 04/25/2025 74 0.843 -1.9 -8.1%# -8.1%# 07/02/2012 61 0.918 -1.2 Total Hip(Left) 04/25/2025 74 0.849 -0.8 -8.7%# -8.7%# 07/02/2012 61 0.930 -0.1 Total Hip(Right) 04/25/2025 74 0.827 -0.9 -10.9%# -10.9%# 07/02/2012 61 0.929 -0.1 -- *Denotes significance at 95% confidence level, LSC for AP Spine = 0.022 g/cm2, LSC for Total Hip = 0.027 g/cm2 # Denotes dissimilar scan types or analysis methods Clinical Information Provided by Patient: Has used the following medications: Vitamin D, Calcium Has the following medical conditions: Hysterectomy Patient maximum height was 60 Menopause Age: 49 No regular weight bearing exercise Onset of menses at age 11 Number of children 2 Impression: The patient has low bone mass, based on the Left Femoral Neck T-score. The patient has an estimated ten-year risk of hip fracture of 1.9% and an estimated ten-year risk of major fracture of 7.7%, based on the WHO FRAX algorithm. Unable to evaluate interval change due to the use of different scan modes. Discussion: BONE DENSITY IS LOW AT ONE OR MORE SKELETAL SITES. This patient's lowest T-score is low at one or more skeletal sites. It meets the World Health Organization's (WHO) criteria for ?low bone mass? (T-score between -1.0 and -2.5). The patient's 10-year risk of fracture as calculated by FRAX is less than the threshold where pharmacological therapy is recommended by the National Osteoporosis Foundation (NOF). However, all treatment decisions require clinical judgment and consideration of individual patient factors, including patient preferences, comorbidities, previous drug use, risk factors not captured in the FRAX model (e.g., frailty, falls, vitamin D deficiency, increased bone turnover, interval significant decline in bone density) and possible under or overestimation of fracture risk by FRAX. The patient should follow a healthful lifestyle (good nutrition with adequate calcium and vitamin D, and appropriate weight-bearing exercise). Follow-Up: Consider repeating this study in 2 to 3 years to reassess this patient's status, or sooner if there is some new clinical indication. Reported by: ALEKSANDRA on 04/25/2025 10:59:00 AM. Reviewed, dictated and finalized at location A.
== END 2025-04-25 10:39 | disposition home or self-care (01) ==
LOC: MICIMG 10:39
PROVIDERS: PCP Nurse Practitioner; Visit Provider Nurse Practitioner
DX: M85.89 Other specified disorders of bone density and structure, multiple sites (principal); Z78.0 Asymptomatic menopausal state
CPT/HCPCS: 77080